=== PATIENT | male | born 1970 | race Caucasian/White ===

== ENCOUNTER 2016-02-24 20:58 | Emergency (ER) | payer OTHER ==
[2016-02-24] MEDS ORDERED: DUONEB (A & A) INH ONE (21:43)
[2016-02-24] MEDS ORDERED: DEPO-MEDROL IM ONE (21:43)
--- NOTE | 2016-02-24 21:51 | PROVIDER DOCUMENTATION ---
HPI-Respiratory General - General Chief Complaint: Shortness of Breath Stated Complaint: CHF Time Seen by Provider: 02/24/16 21:42 Source: patient Allergies/Adverse Reactions: Patient Allergies Allergy/AdvReac Type Severity Reaction Status Date / Time Penicillins Allergy Intermediate Unknown Verified 01/16/16 08:04 atropine Allergy ANAPHYLAXIS Verified 01/16/16 08:04 Latex, Natural Rubber Allergy RASH Verified 01/16/16 08:04 levofloxacin [From Levaquin] Allergy ITCHING Verified 01/16/16 08:04 Home Medications: Aspirin EC 1 each PO DAILY 09/08/15 - History of Present Illness-Resp Nature of Presenting Problem: 45 y/o M presents to the ED with SOB and cough today and it is worse. This is a chronic problem with him and states he does not have a nebulizer for treatments. Pt states he coughs so much it causes him to vomit. Quality of Pain: reports: aching Severity in ED: reports: moderate Onset/Duration: reports: gradual (worsen today) Timing: reports: still present, improving Cough Quality/Degree: reports: moderate, dry cough Current Respiratory Medication Therapy: Initiated none Associated Symptoms: reports: cough, nasal drainage. denies: facial pain, fever /chills, headache, sore throat Similar Symptoms Previously?: Yes Recently seen or treated by another doctor?: Yes Review of Systems - Adult - REVIEW OF SYSTEMS - ADULT Constitutional: denies: chills, fever Eyes: reports: no symptoms reported Ears, Nose, Mouth & Throat: reports: no symptoms reported Cardiovascular: denies: chest pain, edema Respiratory: reports: cough, shortness of breath. denies: wheezing Gastrointestinal: reports: vomiting. denies: abdominal pain, nausea Genitourinary: denies: discharge, frequency, hematuria Musculoskeletal: reports: bone pain, back pain. denies: muscle weakness Integumentary: reports: no symptoms reported Neurological: denies: dizziness/vertigo, headache/migraines Psychiatric: reports: no symptoms reported Endocrine: reports: no symptoms reported Hematologic/Lymphatic: reports: no symptoms reported Allergic/Immunologic: reports: no symptoms reported All Other Systems: Reviewed and Negative Past History - Adult - PAST MEDICAL HISTORY-ADULT Review of Records: reports: Old Records Reviewed, Nursing Assessment Review, Medications Reviewed Major Childhood Illnesses: reports: denies history Cardiovascular: reports: CHF, HTN, [place], other (cardiomyopathy/ 20% ejection fraction) Respiratory: reports: denies history Gastrointestinal: reports: denies history Genitourinary: reports: denies history Musculoskeletal: reports: chronic pain Neurological: reports: denies history Psychiatric: reports: anxiety, ptsd Endocrine/Immune: reports: denies history Other Conditions: reports: denies history - PRIOR SURGERIES/PROCEDURES Surgical/Procedure History: reports: cardiac stent, pacemaker - IMMUNIZATION STATUS Childhood Immunizations: See Nurse Assessment Flu Vaccine: See Nurse Assessment - FAMILY HISTORY Family History: reviewed, not pertinent - SOCIAL HISTORY Smoking: cigarettes, less than 1 pack/day Living Situation: family Physical Exam-General - PHYSICAL EXAM-ADULT Initial Vital Signs Reviewed: Yes - CONSTITUTIONAL General Appearance: appears well, no apparent distress, obese - EYES Eyes: PERRL/EOMI, pink conjunctivae - HEAD, EARS, NOSE, MOUTH & THROAT HENMT: moist mucous membranes, normal ENT inspection, TMs normal, pharynx normal - NECK Neck: non-tender, full range of motion, supple, normal inspection - RESPIRATORY Respiratory: no pleuratic chest pain, no respiratory distress, no accessory muscle use, wheezing, increased rate - CARDIOVASCULAR Cardiovascular: normal peripheral pulses, tachycardia - GASTROINTESTINAL (ABDOMEN) Abdominal Exam: normal bowel sounds, non tender, soft - MUSCULOSKELETAL Back Exam: normal inspection, no CVA tenderness, no vertebral tenderness Extremity: normal range of motion, non-tender, normal gait, normal inspection, no pedal edema - SKIN Integumentary: normal color, normal turgor, warm/dry - NEUROLOGIC Neurologic: grossly normal, no motor/sensory deficits - PSYCHIATRIC Psych/Mental Status: normal mood/affect, normal thought content, normal thought process, oriented x 3 Progress - PLAN OF CARE/RESULTS Progress/Plan/Lab Results: Orders Category Date Time Status Albuterol 2.5MG/Ipratrop 0.5MG [Duoneb (A & A)] Med 02/24/16 21:43 Discontinued 3 ml INH NOW ONE Methylprednisolone Acetate [Depo-Medrol] Med 02/24/16 21:43 Discontinued 80 mg IM NOW ONE Aerosol Treatments Routine Oth 02/24/16 21:44 Active Aerosol Treatments Stat Oth 02/24/16 21:44 Active Vital Signs Temp Pulse Resp BP Pulse Ox 02/24/16 21:01 99.2 F 101 H 22 171/107 99 Penicillins Allergy (Intermediate, Verified 01/16/16 08:04) Unknown atropine Allergy (Verified 01/16/16 08:04) ANAPHYLAXIS Latex, Natural Rubber Allergy (Verified 01/16/16 08:04) RASH levofloxacin [From Levaquin] Allergy (Verified 01/16/16 08:04) ITCHING Aspirin EC 1 each PO DAILY 09/08/15 Omeprazole [Prilosec] 40 mg PO DAILY #90 capsule. 10/05/15 ATORVAstatin [Lipitor] 40 mg PO QHS #30 tablet 01/26/16 Albuterol Sulfate Inhaler [Ventolin Hfa] 2 puff INH [id number] #1 inhaler 01/26/16 Alprazolam [Xanax] 2 mg PO TID #42 tablet 01/26/16 Amlodipine Besylate [Norvasc] 10 mg PO DAILY #30 tablet 01/26/16 Azithromycin 250 mg PO DAILY #4 tablet 01/26/16 Carvedilol [Coreg] 6.25 mg PO BID #60 tablet 01/26/16 Furosemide [Lasix] 40 mg PO BID #60 tablet 01/26/16 Hydrocodone/Acetaminophen [[place] 10-325 Tablet] 1 each PO TID #40 tablet Lisinopril 40 mg PO DAILY #30 tablet 01/26/16 Potassium Chloride E.r. [Klor-Con] 40 meq PO DAILY #30 tablet 01/26/16 Benzonatate [Tessalon Perle] 200 mg PO TID PRN #18 capsule 01/31/16 ATORVAstatin [Lipitor] 40 mg PO QHS #30 tablet 02/24/16 Albuterol Sulfate [Albuterol Sulfate Hfa] 18 gm IH 4XDAY #7 hfa.aer.ad 02/24/16 Amlodipine Besylate [Norvasc] 10 mg PO DAILY #30 tablet 02/24/16 Carvedilol [Coreg] 6.25 mg PO Q12HR #60 tablet 02/24/16 Clopidogrel Bisulfate [Plavix] 75 mg PO DAILY #30 tablet 02/24/16 Furosemide [Lasix] 40 mg PO BID #60 tablet 02/24/16 Losartan Potassium [Cozaar] 100 mg PO DAILY #30 tablet 02/24/16 Omeprazole [Prilosec] 40 mg PO DAILY #30 capsule. 02/24/16 Potassium Chloride [K-Tab ER] 40 meq PO BID #60 tablet.er 02/24/16 Departure - Departure Time of Disposition Order: 21:57 DIAGNOSIS: COPD exacerbation, Prescription refill CHF (congestive heart failure) Qualifiers: Congestive heart failure type: unspecified congestive heart failure type Congestive heart failure chronicity: unspecified congestive heart failure chronicity Qualified Code(s): I50.9 - Heart failure, unspecified Disposition: HOME 01 Certified Medical Emergency: Emergent Condition: Stable Additional Instructions: ED Follow Up Instructions: You have been treated by a care provider in the Emergency Department. These instructions are being provided to you so you can have an understanding of how to care for yourself upon discharge. Upon discharge from the Emergency Department, you are responsible for making arrangements for follow-up care by a physician of your choice. Take all prescribed medications as directed. Return to the Emergency Department immediately for any new or worsening symptoms. You may call the Physician Referral phone number at [phone] to obtain a list of Physicians who are taking new patients. Attestation - Scribe Verification/Attestation Scribe:: Sergio Dumont Acting as Scribe for:: Chucky Tovar Scribe documention review:: This chart was documented by a scribe and accurately reflects the service the provider performed and the decisions made by the provider.
[2016-02-24 22:41] VITALS: BP 158/94
== END 2016-02-24 22:39 | disposition home or self-care (01) ==
LOC: P.ED 20:58
DX: J44.1 Chronic obstructive pulmonary disease with (acute) exacerbation (principal); I50.9 Heart failure, unspecified; R06.02 Shortness of breath; R05 Cough; Z76.0 Encounter for issue of repeat prescription; R09.81 Nasal congestion; R00.0 Tachycardia, unspecified; R11.10 Vomiting, unspecified; R06.2 Wheezing; M54.9 Dorsalgia, unspecified; M89.8X9 Other specified disorders of bone, unspecified site; G89.29 Other chronic pain; I10 Essential (primary) hypertension; I25.2 Old myocardial infarction; I42.9 Cardiomyopathy, unspecified; F41.9 Anxiety disorder, unspecified; F43.10 Post-traumatic stress disorder, unspecified; Z95.5 Presence of coronary angioplasty implant and graft; Z95.0 Presence of cardiac pacemaker; F17.210 Nicotine dependence, cigarettes, uncomplicated; E66.9 Obesity, unspecified; Z68.36 Body mass index [BMI] 36.0-36.9, adult; Z79.82 Long term (current) use of aspirin; Z79.899 Other long term (current) drug therapy
CPT/HCPCS: 94640; 96372; J1040

== ENCOUNTER 2016-04-19 16:40 | Emergency (ER) ==
[2016-04-19] MEDS ORDERED: PERCOCET-10 PO ONE (17:25)
[2016-04-19] MEDS ORDERED: DUONEB (A & A) INH ONE (17:25)
[2016-04-19] MEDS ORDERED: SOLU-MEDROL IV ONE (17:25)
[2016-04-19] MEDS ORDERED: ASPIRIN PO STA (17:25)
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
[2016-04-19 17:32] LABS: MANUAL DIFF NEEDED? NO
[2016-04-19 17:38] LABS: BASO% 0.3 % (0.0-0.8); HEMATOCRIT 43.9 % (42.0-52.0); HEMOGLOBIN 13.8 g/dL (14.0-18.0); IMM GRAN# 0.01 X1000 (0.0-0.04); IMM GRAN% 0.1 % (0.0-0.5); LYMPH% 19.8 % (20.5-51.1); MCH 29.4 PG (27-31); MCHC 31.4 g/dL (33-37); MCV 93.6 FL (81-99); MONO# 0.86 X1000 (0.11-0.59); MPV 10.3 FL (7.4-10.4); NEUT% 69.8 % (42.2-75.2); PLT 205 X1000 (130-400); RBC 4.69 XMIL (4.7-6.1)
[2016-04-19 17:39] LABS: INR 1.01 (0.86-1.15); PROTIME 13.6 Seconds (12.1-15.5)
[2016-04-19 17:40] LABS: PTT PL 27.9 Seconds (22.6-43.9)
[2016-04-19 17:44] LABS: AGAP 11; ALBUMIN 3.8 g/dL (3.5-5.0); ALKALINE PHOSPHATASE 108 U/L (32-122); BUN 15 mg/dL (8-22); CALCIUM 9.1 mg/dL (8.8-10.2); CHLORIDE 101 mmol/L (98-107); CK PROFILE 175 U/L (24-204); COSMO 282; GOT 25 U/L (10-34); GPT 15 U/L (10-44); MAGNESIUM 2.3 mg/dL (1.5-2.7); POTASSIUM 3.5 mmol/L (3.5-5.1); SODIUM 140 mmol/L (136-145); TCO2 28 mmol/L (25-35)
[2016-04-19 17:59] LABS: BE 2.8 mmoll (-3.0-3.0); BLOOD TYPE ARTERIAL; DRAW SITE L RADIAL; METHB 1.1 % (0.0-1.5); O2(CT) 19.3 mL/dL (15.0-23.0); PCO2(98.6) 35 mmHg (35-45); PO2(98.6) 98 mmHg (60-100); SAMPLE BLOOD; SAO2 98.5 % (95.0-100.0); THB 14.5 g/dL (11.5-17.4); pH(98.6) 7.48 (7.35-7.45)
[2016-04-19 18:02] LABS: MODALITY ROOM AIR
[2016-04-19 18:03] LABS: ALLEN TEST YES
[2016-04-19 18:14] VITALS: BP 152/96
--- NOTE | 2016-04-19 18:27 | EKG Report ---
Test Performed on : 04/19/2016 6:00:07 PM Test Reason : CP Blood Pressure : / mmHG Vent. Rate : 107 BPM Atrial Rate : 107 BPM P-R Int : 166 ms QRS Dur : 098 ms QT Int : 372 ms P-R-T Axes : 066 -43 089 degrees QTc Int : 496 ms Sinus tachycardia. Biatrial enlargement Left axis deviation Left ventricular hypertrophy T wave abnormality, consider lateral ischemia Abnormal ECG When compared with ECG of 30-MAR-2016 19:32, premature ventricular complexes. are no longer present Unconfirmed Result
--- NOTE | 2016-04-20 09:52 | Diag Imaging Result Document ---
PROCEDURE NAME: CHEST-2 VIEWS - 04/19/2016 CHEST, TWO VIEWS: COMPARISON: 03/08/2016. INDICATION: Cough and shortness of breath. FINDINGS: There is stable marked cardiomegaly. There is a left pacemaker. Prominent bilateral interstitial markings are again identified and appear slightly more prominent than on the prior study of 03/08/2016 and approximately unchanged from 03/05/2016. No pneumothorax or effusion. IMPRESSION: Prominent interstitial markings which may indicated edema slightly increased from the prior study. No focal consolidation.
== END 2016-04-19 18:39 | disposition home or self-care (01) ==
LOC: P.ED 16:40
DX: J41.0 Simple chronic bronchitis (principal); R94.31 Abnormal electrocardiogram [ECG] [EKG]; R07.89 Other chest pain; M54.9 Dorsalgia, unspecified; R06.02 Shortness of breath; R05 Cough; M79.602 Pain in left arm; R00.0 Tachycardia, unspecified; L90.5 Scar conditions and fibrosis of skin; I50.9 Heart failure, unspecified; I10 Essential (primary) hypertension; I25.2 Old myocardial infarction; G89.29 Other chronic pain; F41.9 Anxiety disorder, unspecified; F17.210 Nicotine dependence, cigarettes, uncomplicated; Z79.02 Long term (current) use of antithrombotics/antiplatelets; Z79.82 Long term (current) use of aspirin; Z79.899 Other long term (current) drug therapy; Z71.6 Tobacco abuse counseling; Z95.0 Presence of cardiac pacemaker; Z95.5 Presence of coronary angioplasty implant and graft
CPT/HCPCS: 71020; 80053; 82550; 82805; 83735; 83880; 84484; 85025; 85379; 85610; 85730; 87040; 93005; 94640; 96374; J2930

== ENCOUNTER 2016-05-09 00:51 | Emergency (ER) ==
[2016-05-09 02:03] LABS: MANUAL DIFF NEEDED? NO
[2016-05-09] MEDS ORDERED: XOPENEX NEB INH ONE (02:03)
[2016-05-09] MEDS ORDERED: PULMICORT INH ONE (02:03)
[2016-05-09] MEDS ORDERED: PERCOCET-5 PO ONE (02:03)
[2016-05-09 02:08] LABS: BASO% 0.5 % (0.0-0.8); EOS# 0.25 X1000 (0.0-0.7); EOS% 2.6 % (0.0-10.0); HEMATOCRIT 41.3 % (42.0-52.0); HEMOGLOBIN 12.9 g/dL (14.0-18.0); IMM GRAN# 0.03 X1000 (0.0-0.04); IMM GRAN% 0.3 % (0.0-0.5); LYMPH# 2.42 X1000 (1.2-3.4); LYMPH% 24.8 % (20.5-51.1); MCH 29.5 PG (27-31); MCHC 31.2 g/dL (33-37); MCV 94.3 FL (81-99); MONO# 0.88 X1000 (0.11-0.59); MPV 9.8 FL (7.4-10.4); NEUT% 62.8 % (42.2-75.2); PLT 251 X1000 (130-400); RBC 4.38 XMIL (4.7-6.1)
--- NOTE | 2016-05-09 02:09 | PROVIDER DOCUMENTATION ---
HPI-Respiratory General - General Source: patient - History of Present Illness-Resp Onset/Duration: reports: 2 days ago Timing: reports: still present Cough Quality/Degree: reports: productive cough, sputum (YELLOWISH) Modifying Factors: improves with: nothing Associated Symptoms: reports: cough, short of breath Similar Symptoms Previously?: Yes Recently seen or treated by another doctor?: Yes <Han Taylor - Last Filed: 05/09/16 02:45> <Jose M Maxwell - Last Filed: 05/09/16 04:45> - General Chief Complaint: Shortness of Breath Stated Complaint: SOB Time Seen by Provider: 05/09/16 01:26 Allergies/Adverse Reactions: Patient Allergies Allergy/AdvReac Type Severity Reaction Status Date / Time Penicillins Allergy Intermediate Unknown Verified 03/30/16 19:29 atropine Allergy ANAPHYLAXIS Verified 03/30/16 19:29 Latex, Natural Rubber Allergy RASH Verified 03/30/16 19:29 levofloxacin [From Levaquin] Allergy ITCHING Verified 03/30/16 19:29 Home Medications: Home Medication List Medication Instructions Recorded Confirmed Last Taken Type Aspirin EC 1 each PO DAILY 09/08/15 05/09/16 03/07/16 History Alprazolam [Xanax] 2 mg PO TID #42 tablet 01/26/16 05/09/16 03/07/16 Rx Hydrocodone/Acetaminophen [[place] 1 each PO TID #40 tablet 01/26/16 05/09/16 Rx 10-325 Tablet] ATORVAstatin [Lipitor] 40 mg PO QHS #30 tablet 02/24/16 05/09/16 03/07/16 Rx Amlodipine Besylate [Norvasc] 10 mg PO DAILY #30 tablet 02/24/16 05/09/16 Rx Clopidogrel Bisulfate [Plavix] 75 mg PO DAILY #30 tablet 02/24/16 05/09/1603/07 Rx Losartan Potassium [Cozaar] 100 mg PO DAILY #30 tablet 02/24/16 05/09/16 Rx Omeprazole [Prilosec] 40 mg PO DAILY #30 capsule.dr 02/24/16 05/09/16 03/07/16 Rx Potassium Chloride [K-Tab ER] 40 meq PO BID #60 tablet.er 02/24/16 05/09/16 Rx Chlorthalidone [Hygroton] 25 mg PO DAILY #30 tablet 05/09/16 Unknown Rx Furosemide [Lasix] 160 mg PO BID 05/09/16 05/09/16 Unknown History - History of Present Illness-Resp Nature of Presenting Problem: 46 YOM PRESENTS TO ED WITH C/O PT STATES SOB X 2 DAYS. PT STATES COUGH X 3 DAYS. PT STATES HE IS ALMOST OUT OF HIS MEDS. PT STATES PRODUCTIVE COUGH WITH YELLOWISH SPUTUM 3 OR 4 DAYS. (Han Taylor) Review of Systems - Adult - REVIEW OF SYSTEMS - ADULT Constitutional: denies: chills, fever Eyes: reports: no symptoms reported Ears, Nose, Mouth & Throat: reports: no symptoms reported Cardiovascular: denies: chest pain, palpitations, syncope Respiratory: reports: cough, shortness of breath Gastrointestinal: denies: abdominal pain, diarrhea, nausea, vomiting Genitourinary: reports: no symptoms reported Musculoskeletal: denies: back pain, neck pain Integumentary: reports: no symptoms reported Neurological: denies: dizziness/vertigo, headache/migraines, syncope Psychiatric: reports: no symptoms reported Endocrine: reports: no symptoms reported Hematologic/Lymphatic: reports: no symptoms reported Allergic/Immunologic: reports: no symptoms reported All Other Systems: Reviewed and Negative <Han Taylor - Last Filed: 05/09/16 02:45> Past History - Adult - PAST MEDICAL HISTORY-ADULT Review of Records: reports: Nursing Assessment Review, Medications Reviewed Cardiovascular: reports: CHF, HTN, [place], other (cardiomyopathy/ 20% ejection fraction) Musculoskeletal: reports: chronic pain Psychiatric: reports: anxiety, ptsd - PRIOR SURGERIES/PROCEDURES Surgical/Procedure History: reports: cardiac stent, pacemaker - IMMUNIZATION STATUS Childhood Immunizations: See Nurse Assessment Flu Vaccine: See Nurse Assessment - FAMILY HISTORY Family History: reviewed, not pertinent - SOCIAL HISTORY Smoking: cigarettes, less than 1 pack/day Provider spent 3-5 mins advising pt. on dangers of tobacco.: Discussed manners to quit use, and f/u contacts for add'l counseling. Substance Use: alcohol Alcohol Use Frequency: occasionally Number of drinks per typical drinking period:: 3-4 drinks <Han Taylor - Last Filed: 05/09/16 02:45> Physical Exam-General - CONSTITUTIONAL General Appearance: alert, mild distress - EYES Eyes: PERRL/EOMI, pink conjunctivae - HEAD, EARS, NOSE, MOUTH & THROAT HENMT: normocephalic/atraumatic, moist mucous membranes - NECK Neck: non-tender, full range of motion, supple - RESPIRATORY Respiratory: chest non-tender, lungs clear, normal breath sounds - CARDIOVASCULAR Cardiovascular: normal peripheral pulses, tachycardia - GASTROINTESTINAL (ABDOMEN) Abdominal Exam: normal bowel sounds, non tender, soft - LYMPHATIC Lymphatic: no adenopathy - MUSCULOSKELETAL Back Exam: normal inspection, no CVA tenderness, no vertebral tenderness Extremity: normal range of motion, non-tender - SKIN Integumentary: normal color, normal turgor, warm/dry - NEUROLOGIC Neurologic: grossly normal - PSYCHIATRIC Psych/Mental Status: oriented x 3 <Han Taylor - Last Filed: 05/09/16 02:45> Progress - EKG 1 Time of EKG reading by physician:: 02:22 EKG Read and Signed by:: Jose M Maxwell EKG Interpretation (*Must complete 3 of following elements*): Abnormal Rate: 101 Rhythm: SINUS TACHYCARDIA [place]: left ST Wave: non-specific ST changes <Han Taylor - Last Filed: 05/09/16 02:45> - REASSESSMENT Reassessment #1 Time Reassessed: 04:00 Status: improving (lungs improved. continuously demanding narcotics, refusing toradol. He will be discharged with referral to [facility] and on-call Certified [place] [facility]) <Jose M Maxwell - Last Filed: 05/09/16 04:45> Departure <Han Taylor - Last Filed: 05/09/16 02:45> - Departure Time of Disposition Order: 05:00 Certified Medical Emergency: Urgent <Jose M Maxwell - Last Filed: 05/09/16 04:45> - Departure DIAGNOSIS: CHF (congestive heart failure), NYHA class III Qualifiers: Congestive heart failure type: combined Congestive heart failure chronicity: chronic Qualified Code(s): I50.42 - Chronic combined systolic (congestive) and diastolic (congestive) heart failure Disposition: HOME 01 Condition: Fair Additional Instructions: Call [facility] for pain treatment Call Certified [place] [facility] for treatment of heart problems Prescriptions: Chlorthalidone [Hygroton] 25 mg PO DAILY #30 tablet Referrals: Moisés Wang MD [STAFF PHYSICIAN] - Attestation - Scribe Verification/Attestation Scribe:: Han Taylor Acting as Scribe for:: Jose M Maxwell Scribe documention review:: This chart was documented by a scribe and accurately reflects the service the provider performed and the decisions made by the provider. <Han Taylor - Last Filed: 05/09/16 02:45> Physician Attestation
--- NOTE | 2016-05-09 02:38 | EKG Report ---
Test Performed on : 05/09/2016 02:21:45 AM Test Reason : pain Blood Pressure : / mmHG Vent. Rate : 101 BPM Atrial Rate : 101 BPM P-R Int : 178 ms QRS Dur : 096 ms QT Int : 388 ms P-R-T Axes : 061 -44 092 degrees QTc Int : 503 ms Sinus tachycardia. Biatrial enlargement Left axis deviation Left ventricular hypertrophy Nonspecific T wave abnormality Abnormal ECG When compared with ECG of 19-APR-2016 18:00, No significant change was found Unconfirmed Result
[2016-05-09 03:14] LABS: CK INDEX 1.8 (0.0-2.5); CK-MB 5.71 ng/mL (0.0-5.0)
[2016-05-09 03:17] LABS: AGAP 16; ALBUMIN 3.5 g/dL (3.5-5.0); ALKALINE PHOSPHATASE 95 U/L (32-122); BUN 14 mg/dL (8-22); CALCIUM 8.2 mg/dL (8.8-10.2); CHLORIDE 98 mmol/L (98-107); COSMO 282; GOT 28 U/L (10-34); GPT 15 U/L (10-44); POTASSIUM 3.5 mmol/L (3.5-5.1); SODIUM 139 mmol/L (136-145); TCO2 25 mmol/L (25-35); TOTAL PROTEIN 5.8 g/dL (6.3-8.3)
[2016-05-09] MEDS ORDERED: LASIX IV ONE (04:01)
[2016-05-09] MEDS ORDERED: TORADOL ONE (04:23)
[2016-05-09] MEDS ORDERED: TORADOL IV ONE (04:29)
[2016-05-09] MEDS ORDERED: ROBITUSSIN-AC PO ONE (05:23)
[2016-05-09 05:40] VITALS: BP 146/100
--- NOTE | 2016-05-09 07:40 | Diag Imaging Result Document ---
PROCEDURE NAME: CHEST-2 VIEWS - 05/09/2016 TWO VIEWS OF THE CHEST: FINDINGS: There is cardiomegaly and interstitial opacity consistent with pulmonary edema. This is slightly worse than on 04/19/2016. IMPRESSION: Mild pulmonary edema and cardiomegaly.
== END 2016-05-09 05:54 | disposition home or self-care (01) ==
LOC: P.ED 00:51
DX: I50.42 Chronic combined systolic (congestive) and diastolic (congestive) heart failure (principal); R06.02 Shortness of breath; R00.0 Tachycardia, unspecified; R94.31 Abnormal electrocardiogram [ECG] [EKG]; R05 Cough; I10 Essential (primary) hypertension; I25.2 Old myocardial infarction; I42.9 Cardiomyopathy, unspecified; G89.29 Other chronic pain; F41.9 Anxiety disorder, unspecified; F43.10 Post-traumatic stress disorder, unspecified; Z95.5 Presence of coronary angioplasty implant and graft; Z95.0 Presence of cardiac pacemaker; F17.210 Nicotine dependence, cigarettes, uncomplicated; Z71.6 Tobacco abuse counseling; Z79.899 Other long term (current) drug therapy; Z79.02 Long term (current) use of antithrombotics/antiplatelets; Z79.82 Long term (current) use of aspirin; Z76.0 Encounter for issue of repeat prescription; F32.9 Major depressive disorder, single episode, unspecified; J35.1 Hypertrophy of tonsils; Z79.51 Long term (current) use of inhaled steroids
CPT/HCPCS: 71020; 80053; 82550; 82553; 83880; 84484; 85025; 93005; 94640; 94761; 96374; J1100; J1885; J1940

== ENCOUNTER 2016-05-09 18:10 | Emergency (ER) ==
[2016-05-09 18:18] VITALS: BP 146/110
--- NOTE | 2016-05-09 18:32 | PROVIDER DOCUMENTATION ---
HPI-Respiratory General - General Source: patient - History of Present Illness-Resp Quality of Pain: reports: aching Severity in ED: reports: mild Onset/Duration: reports: 6 days ago Timing: reports: still present Exposure: reports: common food allergen exposure Cough Quality/Degree: reports: moderate Current Respiratory Medication Therapy: Initiated see nurses note Associated Symptoms: reports: cough Similar Symptoms Previously?: Yes Recently seen or treated by another doctor?: Yes <Anjelica Lira - Last Filed: 05/09/16 18:33> <Angela Griffin - Last Filed: 05/09/16 18:42> - General Chief Complaint: Cough Stated Complaint: SOB Time Seen by Provider: 05/09/16 18:27 Allergies/Adverse Reactions: Patient Allergies Allergy/AdvReac Type Severity Reaction Status Date / Time Penicillins Allergy Intermediate Unknown Verified 05/09/16 18:18 atropine Allergy ANAPHYLAXIS Verified 05/09/16 18:18 Latex, Natural Rubber Allergy RASH Verified 05/09/16 18:18 levofloxacin [From Levaquin] Allergy ITCHING Verified 05/09/16 18:18 Home Medications: Home Medication List Medication Instructions Recorded Confirmed Last Taken Type Aspirin EC 1 each PO DAILY 09/08/15 05/09/16 03/07/16 History Alprazolam [Xanax] 2 mg PO TID #42 tablet 01/26/16 05/09/16 03/07/16 Rx Hydrocodone/Acetaminophen [[place] 1 each PO TID #40 tablet 01/26/16 05/09/16 Rx 10-325 Tablet] ATORVAstatin [Lipitor] 40 mg PO QHS #30 tablet 02/24/16 05/09/16 03/07/16 Rx Amlodipine Besylate [Norvasc] 10 mg PO DAILY #30 tablet 02/24/16 05/09/16 Rx Clopidogrel Bisulfate [Plavix] 75 mg PO DAILY #30 tablet 02/24/16 05/09/1603/07 Rx Losartan Potassium [Cozaar] 100 mg PO DAILY #30 tablet 02/24/16 05/09/16 Rx Omeprazole [Prilosec] 40 mg PO DAILY #30 capsule. 02/24/16 05/09/16 03/07/16 Rx Potassium Chloride [K-Tab ER] 40 meq PO BID #60 tablet.er 02/24/16 05/09/16 Rx Albuterol Sulfate [Proair Hfa] 8.5 gm IH Q4H PRN PRN #1 hfa.aer.ad 05/09/16 Unknown Rx Azithromycin [Zithromax Z-Lefty] 250 mg PO DIRECTED #1 pkg 05/09/16 Unknown Rx Chlorthalidone [Hygroton] 25 mg PO DAILY #30 tablet 05/09/16 05/09/16 Unknown Rx Furosemide [Lasix] 80 mg PO BID #60 tablet 05/09/16 Unknown Rx Furosemide [Lasix] 160 mg PO BID 05/09/16 05/09/16 Unknown History Guaifenesin/Codeine [Robitussin-AC] 5 ml PO Q4H PRN PRN #6 oz 05/09/16 05/09/16 Unknown Rx Mometasone/Formoterol [Dulera 200 2 puff INH RTBID #1 inhaler 05/09/16 05/09/16 Unknown Rx Mcg/5 Mcg Inhaler] Phenylephrine HCl/Cod/Prometh 5 ml PO Q6-8H PRN PRN #1 syrup 05/09/16 Unknown Rx [Phenergan Vc-Codeine Syrup] Promethazine [Phenergan] 1 - 2 tab PO Q6H PRN PRN #18 tablet 05/09/16 05/09/16 Unknown Rx - History of Present Illness-Resp Nature of Presenting Problem: 46 year old M presents to the ED with a cc of 6 days straight. PT states that he has been hurting in his head, roof of mouth, ABD, and rectum since coughing. PT states that he was seen here last night for the same. Pt also requesting a pain RX, pain pill, Lasix, ProAir inhaler, and Phenergan with Codine. (Anjelica Lira) Review of Systems - Adult - REVIEW OF SYSTEMS - ADULT Constitutional: denies: chills, fever Eyes: reports: no symptoms reported Ears, Nose, Mouth & Throat: reports: no symptoms reported Cardiovascular: denies: chest pain, palpitations Respiratory: reports: cough. denies: shortness of breath Gastrointestinal: denies: nausea, vomiting Genitourinary: reports: no symptoms reported Musculoskeletal: reports: no symptoms reported Integumentary: reports: no symptoms reported Neurological: reports: no symptoms reported Psychiatric: reports: no symptoms reported Endocrine: reports: no symptoms reported Hematologic/Lymphatic: reports: no symptoms reported Allergic/Immunologic: reports: no symptoms reported All Other Systems: Reviewed and Negative <Anjelica Lira - Last Filed: 05/09/16 18:33> Past History - Adult - PAST MEDICAL HISTORY-ADULT Review of Records: reports: Nursing Assessment Review, Medications Reviewed Major Childhood Illnesses: reports: denies history Cardiovascular: reports: CHF, HTN, [place], other (cardiomyopathy/ 20% ejection fraction) Respiratory: reports: denies history Gastrointestinal: reports: denies history Obstetrical/Gynecological: reports: denies history Genitourinary: reports: denies history Musculoskeletal: reports: chronic pain Neurological: reports: denies history Psychiatric: reports: anxiety, ptsd Endocrine/Immune: reports: denies history Other Conditions: reports: denies history - PRIOR SURGERIES/PROCEDURES Surgical/Procedure History: reports: cardiac stent, pacemaker - IMMUNIZATION STATUS Childhood Immunizations: See Nurse Assessment Flu Vaccine: See Nurse Assessment - FAMILY HISTORY Family History: reviewed, not pertinent - SOCIAL HISTORY Smoking: cigarettes, less than 1 pack/day Provider spent 3-5 mins advising pt. on dangers of tobacco.: Discussed manners to quit use, and f/u contacts for add'l counseling. Substance Use: none/never Alcohol Use Frequency: occasionally <Anjelica Lira - Last Filed: 05/09/16 18:33> Physical Exam-General - PHYSICAL EXAM-ADULT Initial Vital Signs Reviewed: Yes - CONSTITUTIONAL General Appearance: appears well, alert, no apparent distress - HEAD, EARS, NOSE, MOUTH & THROAT HENMT: normocephalic/atraumatic, moist mucous membranes, TMs normal, other ( tonsillar swelling) - RESPIRATORY Respiratory: chest non-tender, lungs clear, normal breath sounds - CARDIOVASCULAR Cardiovascular: normal peripheral pulses, regular rate, rhythm, no edema - GASTROINTESTINAL (ABDOMEN) Abdominal Exam: non tender, soft - SKIN Integumentary: normal color, normal turgor, warm/dry - PSYCHIATRIC Psych/Mental Status: normal mood/affect, normal thought content, normal thought process, oriented x 3 <Anjelica Lira - Last Filed: 05/09/16 18:33> Departure <Anjelica Lira - Last Filed: 05/09/16 18:33> - Departure Time of Disposition Order: 18:42 Certified Medical Emergency: Emergent <Angela Griffin - Last Filed: 05/09/16 18:42> - Departure DIAGNOSIS: Prescription refill, Cough Disposition: HOME 01 Condition: Stable Additional Instructions: Please follow up with a primary care physician ED Follow Up Instructions: You have been treated by a care provider in the Emergency Department. These instructions are being provided to you so you can have an understanding of how to care for yourself upon discharge. Upon discharge from the Emergency Department, you are responsible for making arrangements for follow-up care by a physician of your choice. Take all prescribed medications as directed. Return to the Emergency Department immediately for any new or worsening symptoms. You may call the Physician Referral phone number at [phone] to obtain a list of Physicians who are taking new patients. Prescriptions: Furosemide [Lasix] 80 mg PO BID #60 tablet Phenylephrine HCl/Cod/Prometh [Phenergan Vc-Codeine Syrup] 5 ml PO Q6-8H PRN PRN #1 syrup PRN Reason: cough Albuterol Sulfate [Proair Hfa] 8.5 gm IH Q4H PRN PRN #1 hfa.aer.ad PRN Reason: Wheezing Azithromycin [Zithromax Z-Lefty] 250 mg PO DIRECTED #1 pkg Referrals: None,PCP [Primary Care Provider] - Cam Hodge MD [STAFF PHYSICIAN] - Forms: Return to School/Parent Work Instructions: Furosemide tablets, Phenylephrine oral tablet, Albuterol inhalation aerosol Attestation - Scribe Verification/Attestation Scribe:: Anjelica Lira Acting as Scribe for:: Angela Griffin Scribe documention review:: This chart was documented by a scribe and accurately reflects the service the provider performed and the decisions made by the provider. <Anjelica Lira - Last Filed: 05/09/16 18:33> Physician Attestation - Physician Attestation I, the provider, attest to the following statement:: Angela Griffin Physician documentation Attestation:: This documentation recorded by the scribe accurately reflects the service I personally performed and the decisions made by me. <Anjelica Lira - Last Filed: 05/09/16 18:33>
[2016-05-09] MEDS ORDERED: NORCO-5 PO ONE (18:33)
[2016-05-09] MEDS ORDERED: DUONEB (A & A) INH ONE (18:33)
[2016-05-09] MEDS ORDERED: DECADRON IM ONE (18:52)
== END 2016-05-09 19:15 | disposition home or self-care (01) ==
LOC: P.ED 18:10
DX: R05 Cough (principal); Z76.0 Encounter for issue of repeat prescription; I50.9 Heart failure, unspecified; I10 Essential (primary) hypertension; I25.2 Old myocardial infarction; I42.9 Cardiomyopathy, unspecified; G89.29 Other chronic pain; F41.9 Anxiety disorder, unspecified; F32.9 Major depressive disorder, single episode, unspecified; Z95.5 Presence of coronary angioplasty implant and graft; Z95.0 Presence of cardiac pacemaker; F17.210 Nicotine dependence, cigarettes, uncomplicated; Z71.6 Tobacco abuse counseling; J35.1 Hypertrophy of tonsils; Z79.899 Other long term (current) drug therapy; Z79.51 Long term (current) use of inhaled steroids; Z79.02 Long term (current) use of antithrombotics/antiplatelets; Z79.82 Long term (current) use of aspirin
CPT/HCPCS: 94640; J1100

== ENCOUNTER 2016-05-28 20:21 | Inpatient (IN) ==
[2016-05-28] MEDS ORDERED: ASPIRIN PO STA (20:43)
[2016-05-28] MEDS ORDERED: DILAUDID IV ONE ×2 (20:54→23:53)
[2016-05-28] MEDS ORDERED: NITROGLYCERIN TOP ONE ×2 (20:54→23:53)
[2016-05-28] MEDS ORDERED: ZOFRAN IV ONE (20:54)
--- NOTE | 2016-05-28 21:28 | EKG Report ---
Test Performed on : 05/28/2016 8:41:16 PM Test Reason : CHEST PAIN Blood Pressure : / mmHG Vent. Rate : 110 BPM Atrial Rate : 110 BPM P-R Int : 164 ms QRS Dur : 096 ms QT Int : 352 ms P-R-T Axes : 058 -46 087 degrees QTc Int : 476 ms Sinus tachycardia. Biatrial enlargement Left axis deviation Left ventricular hypertrophy Abnormal ECG When compared with ECG of 24-MAY-2016 12:50, No significant change was found Unconfirmed Result
[2016-05-28 21:42] LABS: MANUAL DIFF NEEDED? NO
[2016-05-28 21:55] LABS: BASO% 0.4 % (0.0-0.8); EOS# 0.15 X1000 (0.0-0.7); EOS% 1.3 % (0.0-10.0); HEMATOCRIT 43.3 % (42.0-52.0); HEMOGLOBIN 13.5 g/dL (14.0-18.0); IMM GRAN# 0.01 X1000 (0.0-0.04); IMM GRAN% 0.1 % (0.0-0.5); LYMPH% 15.8 % (20.5-51.1); MCH 28.9 PG (27-31); MCHC 31.2 g/dL (33-37); MCV 92.7 FL (81-99); MONO# 0.85 X1000 (0.11-0.59); MONO% 7.5 % (1.7-9.3); MPV 9.6 FL (7.4-10.4); NEUT% 74.9 % (42.2-75.2); PLT 247 X1000 (130-400); RBC 4.67 XMIL (4.7-6.1)
[2016-05-28 22:00] LABS: INR 1.1 (0.86-1.15); PROTIME 14.5 Seconds (12.1-15.5)
[2016-05-28 22:01] LABS: PTT PL 30.1 Seconds (22.6-43.9)
[2016-05-28 22:11] LABS: UR AMPHETAMINES QUAL NONE DETECTED (NONE DETECT); UR BARBITUATES QUAL NONE DETECTED (NONE DETECT); UR BENZODIAZEPIN QUAL NONE DETECTED (NONE DETECT); UR CANNABINOIDS QUAL NONE DETECTED (NONE DETECT); UR COCAINE QUAL NONE DETECTED (NONE DETECT); UR MDMA QUAL NONE DETECTED (NONE DETECT); UR METHADONE QUAL NONE DETECTED (NONE DETECT); UR METHAMPHETAMINE QUAL NONE DETECTED (NONE DETECT); UR OPIATES QUAL NONE DETECTED (NONE DETECT); UR OXYCODONE QUAL NONE DETECTED (NONE DETECT); UR PCP QUAL NONE DETECTED (NONE DETECT); UR TCA QUAL NONE DETECTED (NONE DETECT)
[2016-05-28 22:25] LABS: AGAP 12; ALBUMIN 3.6 g/dL (3.5-5.0); ALKALINE PHOSPHATASE 109 U/L (32-122); AMYLASE 50 U/L (20-200); BUN 14 mg/dL (8-22); CALCIUM 8.5 mg/dL (8.8-10.2); CHLORIDE 98 mmol/L (98-107); COSMO 275; GOT 29 U/L (10-34); GPT 41 U/L (10-44); POTASSIUM 3.8 mmol/L (3.5-5.1); SODIUM 136 mmol/L (136-145); TCO2 26 mmol/L (25-35)
[2016-05-28 22:27] LABS: CK PROFILE 211 U/L (24-204)
[2016-05-28 22:50] LABS: CK INDEX 2.5 (0.0-2.5); CK-MB 5.38 ng/mL (0.0-5.0)
[2016-05-28] MEDS ORDERED: LASIX IV ONE (23:52)
[2016-05-28] MEDS ORDERED: TYLENOL PO PRN (23:54)
[2016-05-28] MEDS ORDERED: ZOFRAN IV PRN (23:54)
[2016-05-29] MEDS ORDERED: CATAPRES PO ONE (00:46)
[2016-05-29] MEDS ORDERED: CATAPRES ONE (00:47)
[2016-05-29] MEDS ORDERED: LASIX ONE (01:57)
[2016-05-29] MEDS ORDERED: DILAUDID ONE (01:57)
[2016-05-29] MEDS: DILAUDID IM PRN ×2 (02:00→08:56)
[2016-05-29 08:53] VITALS: BP 142/87
--- NOTE | 2016-05-29 09:20 | Diag Imaging Result Document ---
PROCEDURE NAME: ANGIOGRAM/PULMONARY ARTERIES - 05/28/2016 CT PULMONARY ANGIOGRAM WITH INTRAVENOUS CONTRAST, 05/28/2016: A CT dose reduction protocol was used. COMPARISON: None. TECHNIQUE: Axial CT images of the chest were obtained after administering intravenous contrast. Coronal MIP images were generated. The IV leaked during the injections so the contrast bolus is suboptimal. FINDINGS: No large pulmonary embolism. There is cardiomegaly. There is a dual -chamber pacemaker. There is ill-defined ground-glass opacity throughout the lungs suggesting some mild interstitial pulmonary edema. No mass or adenopathy. Upper abdominal images are unremarkable. Bony structures are intact. IMPRESSION: 1. No obvious pulmonary embolism. 2. Cardiomegaly and mild hazy ground-glass opacity suggesting interstitial pulmonary edema. [facility]
[2016-05-29] MEDS ORDERED: VENTOLIN HFA INH PRN (11:02)
[2016-05-29] MEDS ORDERED: DILAUDID IM PRN (11:08)
[2016-05-29] MEDS ORDERED: KLOR-CON PO SCH (11:15)
[2016-05-29] MEDS ORDERED: COZAAR PO SCH (11:15)
--- NOTE | 2016-05-29 11:39 | Diag Imaging Result Document ---
PROCEDURE NAME: CHEST-2 VIEWS - 05/28/2016 CHEST, 2 VIEWS: COMPARISON: 05/24/2016. FINDINGS: Stable pacemaker. Stable severe cardiomegaly. There is ill-defined interstitial pattern diffusely and bilaterally suggesting mild pulmonary edema. No pneumothorax or pleural effusion. IMPRESSION: Cardiomegaly and probable mild interstitial pulmonary edema.
--- NOTE | 2016-05-29 14:27 | HISTORY AND PHYSICAL ---
CHIEF COMPLAINT: Chest pain. Swelling in his feet. HISTORY OF PRESENT ILLNESS: The patient unfortunately is a relatively noncompliant 46-year-old male as noted below. He has a known history of significant coronary artery disease and apparently has been on heart transplant list in the past with an EF of 20%. He presents to the emergency department initially noting that his feet were swelling and he is having issues with chest pain. However this morning notes his chest pain has resolved but still is having significant swelling in his feet. PAST MEDICAL HISTORY: Known coronary artery disease, hypertension, hyperlipidemia, COPD, systolic congestive heart failure with an ejection fraction of 20%. He has an ICD placement. FAMILY HISTORY: Noncontributory. SOCIAL HISTORY: Patient currently lives at home with his family. Continues to smoke a half pack cigarettes a day. Continues to drink alcohol occasionally. ALLERGIES: Penicillin, atropine, natural latex, rubber and Levaquin. HOME MEDICATIONS: Albuterol, Xanax patient notes he takes 2 mg 3 times a day, Lipitor 40, Norvasc 10, Cozaar, Prilosec, potassium, Lasix, Plavix 75, aspirin 325. PHYSICAL: Vital signs: Temperature 98, pulse 89, respiratory 16, BP 139/92 to 142/87, saturations 97% on room air. General: Patient is awake, alert, oriented. He is in no current respiratory distress. He is currently pleasant to talk with although this was apparently not the case last night. HEENT: Normocephalic, atraumatic. AYSE. Neck: Supple. CV: Regular rate. Chest: Relatively clear. No crackles. No wheezing. Abdomen: Soft. Extremities: 2+ edema bilateral lower extremities. Neurologic: No focal changes. DIAGNOSTIC DATA: WBCs 11, hemoglobin and hematocrit 13 and 43. D-dimer 0.59. BNP 2552. ASSESSMENT: 1. Chest pain. 2. Systolic congestive heart failure. 3. Hypertension. 4. Pulmonary edema. 5. Bilateral lower extremity edema. 6. Hypertension. 7. Unfortunate chronic medical noncompliance as noted by continued smoking, continued occasional alcohol use, continued failure to follow up with cardiology. He has been in town at least over 6 months and has still not made an appointment with [facility]. He does not have a primary care physician either. 8. Chronic pain. 9. Chronic anxiety. PLAN: Will admit patient to the hospital for observation, rule out MO. Further orders as needed. cc: Adalberto Ng MD
[2016-05-29] MEDS ORDERED: ASPIRIN EC PO SCH (21:00)
[2016-05-29] MEDS ORDERED: PLAVIX PO SCH (21:00)
[2016-05-29] MEDS ORDERED: LASIX PO SCH (21:00)
--- NOTE | 2016-05-29 21:37 | DISCHARGE SUMMARY ---
ADMISSION DATE: 05/29/2016 DISCHARGE DATE: 05/29/2016 DISCHARGE DIAGNOSES: 1. Chest pain resolved. 2. Congestive heart failure, systolic, stable with an ejection fraction of 20%. 3. Hypertension. 4. Chronic anxiety. 5. Chronic pain. 6. Chronic obstructive pulmonary disease. 7. Chronic continued tobacco abuse. BRIEF HOSPITAL COURSE: No changes were made in patient's hospital stay. He was restarted on some medications. DISPOSITION: The patient will be discharged home. He will follow up with Cardiology hopefully this time. He failed to do so last time. He will also follow up with his primary care physician. Certainly feel as though patient may be in the hospital simply to get his chronic home medications of Xanax and Orestes. As noted, in January he had a stress test at that point which was noted to have 2 separate defects that were fixed and an EF of 28%. An echocardiogram showed 20%. Will also add Zaroxolyn to see if this will help. cc: Adalberto Ng MD
[2016-05-30] MEDS ORDERED: PRILOSEC PO SCH (07:00)
--- NOTE | 2016-06-02 18:48 | PROVIDER DOCUMENTATION ---
This chart was entered by Nancy Altman Scribe, acting as scribe for Saud Chao DO. HPI-Musculoskeletal Pain/Inj - GENERAL Chief Complaint: Chest Pain Stated Complaint: CHEST PAIN,SOB Time Seen by Provider: 05/28/16 20:43 Source: patient - HX OF PRESENT ILLNESS-MUSKULOSKELTAL Nature of Presenting Problem: 46 YO M presents to the ER with the complain of Chest pain and edema X1 day. Pt states that the swelling of legs started yesterday and is on blood thinners. Denies any other symptoms. Severity in ED: mild Onset/Duration: 24 hours ago Timing: still present - FALL INJURY Location of Pain/Injury: reports: lower extremity Pain Radiation: reports: chest Review of Systems - Adult - REVIEW OF SYSTEMS - ADULT Constitutional: denies: chills, fever Eyes: reports: no symptoms reported Ears, Nose, Mouth & Throat: reports: no symptoms reported Cardiovascular: reports: chest pain. denies: palpitations Respiratory: reports: shortness of breath. denies: cough Gastrointestinal: denies: abdominal pain, nausea Genitourinary: reports: no symptoms reported Musculoskeletal: reports: other (edema in both legs). denies: joint swelling Integumentary: reports: no symptoms reported Neurological: reports: no symptoms reported Psychiatric: reports: no symptoms reported Endocrine: reports: no symptoms reported Hematologic/Lymphatic: reports: no symptoms reported Allergic/Immunologic: reports: no symptoms reported All Other Systems: Reviewed and Negative Past History - Adult - PAST MEDICAL HISTORY-ADULT Review of Records: reports: Old Records Reviewed, Nursing Assessment Review Major Childhood Illnesses: reports: denies history Cardiovascular: reports: CHF, HTN, [place], other (cardiomyopathy/ 20% ejection fraction) Respiratory: reports: denies history Gastrointestinal: reports: denies history Obstetrical/Gynecological: reports: denies history Genitourinary: reports: denies history Musculoskeletal: reports: chronic pain Neurological: reports: denies history Psychiatric: reports: anxiety, ptsd Endocrine/Immune: reports: denies history Other Conditions: reports: denies history - PRIOR SURGERIES/PROCEDURES Surgical/Procedure History: reports: cardiac stent, pacemaker - IMMUNIZATION STATUS Childhood Immunizations: See Nurse Assessment Flu Vaccine: See Nurse Assessment - FAMILY HISTORY Family History: reviewed, not pertinent - SOCIAL HISTORY Smoking: cigarettes Provider spent 3-5 mins advising pt. on dangers of tobacco.: Discussed manners to quit use, and f/u contacts for add'l counseling. Alcohol Use Frequency: occasionally Physical Exam-Injury Related - Physical Exam-Injury Related Initial Vital Signs Reviewed: Yes General Appearance: appears well, alert, mild distress Eyes: PERRL/EOMI, pink conjunctivae Head, Ears, Nose, Mouth & Throat: moist mucous membranes, normal ENT inspection Neck: non-tender, full range of motion, supple Respiratory: normal breath sounds, no respiratory distress Cardiovascular: normal peripheral pulses, regular rate, rhythm Back Exam: no CVA tenderness, no vertebral tenderness Extremity: pedal edema, swelling (bilat legs) Integumentary: normal color, warm/dry Neurologic: grossly normal, no motor/sensory deficits Psych/Mental Status: normal mood/affect, normal thought content, normal thought process, oriented x 3 Progress - PLAN OF CARE/RESULTS Progress/Plan/Lab Results: Orders Category Date Time Status Admit - [facility] Routine AdmDCTranf 05/28/16 23:54 Ordered Activity - Strict Bedrest ORDERED Care 05/28/16 23:54 Active Call Admitting on Arrival AT ADMISSION Care 05/28/16 23:54 Completed Cardiac Monitoring DIRECTED Care 05/28/16 20:44 Active Saline Loc DIRECTED Care 05/28/16 23:54 Completed Saline Loc NOW Care 05/28/16 20:44 Completed Vital Signs Order ARRIVAL TO ROOM Care 05/28/16 23:54 Active Heart Healthy Diet Diet 05/28/16 23:55 Completed CHEST-2 VIEWS [RAD] Stat Exams 05/28/16 20:44 Completed CTA [ANGIOGRAM/PULMONARY ARTERIES] [CT] Stat Exams 05/28/16 22:23 Completed ALCOHOL BLOOD Stat Lab 05/28/16 21:25 Completed AMYLASE [CHEM] Stat Lab 05/28/16 21:25 Completed CBC WITH ELECTRONIC DIFF [HEME] Stat Lab 05/28/16 21:25 Completed CK PROFILE [SP CHEM] Stat Lab 05/28/16 21:25 Completed COMPREHENSIVE METABOLIC PANEL [CHEM] Stat Lab 05/28/16 21:[address] D-D[address]ER [address] [COAG] Stat Lab 05/28/16 21:25 Completed MAGNESIUM [CHEM] Stat Lab 05/28/16 21:25 Completed PRO B-NATRIURETIC PEPTIDE Stat Lab 05/28/16 21:25 Completed [address]IME WITH INR PL [COAG] Stat Lab 05/28/16 21:[address] [COAG] Stat Lab 05/28/16 21:25 Completed TROPONIN T Lab 05/29/16 05:15 Completed TROPONIN T Stat Lab 05/28/16 21:25 Completed URINE DRUG SCREEN PL Stat Lab 05/28/16 21:50 Completed Acetaminophen [Tylenol] Med 05/28/16 23:54 Discontinued 650 mg PO Q6H PRN PRN Aspirin Med 05/28/16 20:43 Discontinued 325 mg PO STAT STA Furosemide [Lasix] Med 05/28/16 23:52 Discontinued 40 mg IV NOW ONE Hydromorphone [Dilaudid] Med 05/28/16 23:53 Discontinued 0.5 mg IV NOW ONE Hydromorphone [Dilaudid] Med 05/28/16 23:54 Discontinued 1 mg IM Q4H PRN PRN Hydromorphone [Dilaudid] Med 05/28/16 20:54 Discontinued 1 mg IV NOW ONE Nitroglycerin Med 05/28/16 20:54 Discontinued 1 inch TOP NOW ONE Nitroglycerin Med 05/28/16 23:53 Discontinued 1 inch TOP NOW ONE Ondansetron [Zofran] Med 05/28/16 20:54 Discontinued 4 mg IV NOW ONE Ondansetron [Zofran] Med 05/28/16 23:54 Discontinued 4 mg IV Q4H PRN PRN Oxygen Device Routine Oth 05/28/16 23:54 Active Telemetry [OM.EQ] Routine Oth 05/28/16 23:54 Active EKG [EKG] Stat Ther 05/28/16 20:44 Draft Transfer/Admit Order [TRANSFER] Routine Transfer 05/28/16 23:55 Completed Result Diagrams: 05/28/16 21:25 05/28/16 21:25 - CT/MRI 1 CT Study: other (Angio Chest) Impression: Normal CT Results: Linited study. No defenite PE is identified. other finding as above. - CONSULTS/PCP/HOSPITALIST Notification #1 *Consult/PCP/Hospitalist*: Dr. Ng Time Discussed: 23:48 Reason/Comments: Meme martinez patient Departure - Departure Time of Disposition Decision: 23:52 DIAGNOSIS: Chest pain Qualifiers: Chest pain type: unspecified Qualified Code(s): R07.9 - Chest pain, unspecified Disposition: ADMITTED INPATIENT 09 Certified Medical Emergency: Emergent Condition: Stable This chart was documented by the indicated scribe, (Nancy Altman Scribe) and accurately reflects the services I performed and decisions made by , Saud Chao DO, as attested by the provider's signature.
== END 2016-05-29 12:12 | disposition home or self-care (01) ==
LOC: P.ED 20:21 → P.MEDSURG 05-29 00:45
PROVIDERS: ATTEND Family Medicine

== ENCOUNTER 2016-10-05 15:56 | Inpatient (IN) ==
[2016-10-05] MEDS ORDERED: ASPIRIN PO STA (16:18)
--- NOTE | 2016-10-05 16:26 | EKG Report ---
Test Performed on : 10/05/2016 4:04:45 PM Test Reason : Chest Pain Blood Pressure : / mmHG Vent. Rate : 091 BPM Atrial Rate : 091 BPM P-R Int : 164 ms QRS Dur : 094 ms QT Int : 390 ms P-R-T Axes : 042 -45 098 degrees QTc Int : 479 ms Sinus rhythm. with premature atrial complexes. Possible Left atrial enlargement Left axis deviation Left ventricular hypertrophy T wave abnormality, consider lateral ischemia Prolonged QT Abnormal ECG When compared with ECG of 03-OCT-2016 13:29, (Unconfirmed) premature atrial complexes. are now present Unconfirmed Result
[2016-10-05 16:45] LABS: MANUAL DIFF NEEDED? NO
--- NOTE | 2016-10-05 16:45 | Diag Imaging Result Doc PS360 ---
EXAM: CHEST-PORTABLE HISTORY: sob TECHNIQUE: Portable erect AP chest at 1641 COMMENT: There is cardiomegaly. Considering differences in inspiration there is been no significant change since 10/03/2016. IMPRESSION: Cardiomegaly. Electronically signed by Temo Rodriguez 10/05/2016 4:42 PM
[2016-10-05 16:50] LABS: BASO% 0.3 % (0.0-0.8); EOS% 1.5 % (0.0-10.0); HEMATOCRIT 41.7 % (42.0-52.0); HEMOGLOBIN 13.7 g/dL (14.0-18.0); IMM GRAN# 0.03 X1000 (0.0-0.04); IMM GRAN% 0.2 % (0.0-0.5); LYMPH# 3.12 X1000 (1.2-3.4); MCH 30.7 PG (27-31); MCHC 32.9 g/dL (33-37); MCV 93.5 FL (81-99); MONO# 1.17 X1000 (0.11-0.59); MPV 10.4 FL (7.4-10.4); PLT 176 X1000 (130-400); RBC 4.46 XMIL (4.7-6.1)
[2016-10-05 16:58] LABS: INR 0.95; PROTIME 9.9 Seconds (9.2-11.7); PTT 24.6 Seconds (22.0-36.0)
[2016-10-05 17:09] LABS: AGAP 12; ALBUMIN 4.3 g/dL (3.5-5.0); ALKALINE PHOSPHATASE 91 U/L (32-122); BUN 16 mg/dL (8-22); CALCIUM 8.4 mg/dL (8.8-10.2); CHLORIDE 103 mmol/L (98-107); CK PROFILE 60 U/L (24-204); COSMO 286; GOT 17 U/L (10-34); GPT 16 U/L (10-44); POTASSIUM 3.7 mmol/L (3.5-5.1); SODIUM 143 mmol/L (136-145); TCO2 28 mmol/L (25-35); TOTAL BILIRUBIN 0.21 mg/dL (0.20-1.00); TOTAL PROTEIN 6.7 g/dL (6.3-8.3)
--- NOTE | 2016-10-05 18:01 | PROVIDER DOCUMENTATION ---
This chart was entered by Solo Hare Scribe, acting as scribe for Cesar Gallagher MD. HPI-Chest Pain - General Chief Complaint: Chest Pain Stated Complaint: CP Time Seen by Provider: 10/05/16 16:17 Source: patient Allergies/Adverse Reactions: Patient Allergies Allergy/AdvReac Type Severity Reaction Status Date / Time Penicillins Allergy Intermediate Unknown Verified 10/05/16 16:24 amoxicillin Allergy Unknown Unknown Verified 10/05/16 16:24 atropine Allergy ANAPHYLAXIS Verified 10/05/16 16:24 ketorolac [From Toradol] Allergy RASH Verified 10/05/16 16:24 Latex, Natural Rubber Allergy RASH Verified 10/05/16 16:24 levofloxacin [From Levaquin] Allergy ITCHING Verified 10/05/16 16:24 Home Medications: Home Medication List Medication Instructions Recorded Confirmed Last Taken Type Alprazolam [Xanax] 1 mg PO BID PRN PRN #60 tablet 05/29/16 10/05/16 2 Weeks Ago Rx Aspirin EC 1 each PO QHS #90 tablet 05/29/16 10/05/16 10/05/16 09:00 Rx Furosemide 1 tab PO BID #60 tablet 05/29/16 10/05/16 10/05/16 09:00 Rx Losartan Potassium [Cozaar] 100 mg PO DAILY #30 tablet 05/29/16 10/05/16 09:00 Rx Omeprazole [Prilosec] 40 mg PO DAILY@0700 #90 capsule.dr 05/29/16 10/05/1610/05 09:00 Rx Potassium Chloride [K-Tab ER] 40 meq PO DAILY #30 tablet.er 05/29/16 10/05/16 09:00 Rx Amlodipine Besylate [Norvasc] 10 mg PO QPM #90 tablet 06/29/16 10/05/16 2 Weeks Ago Rx Albuterol Sulfate [Albuterol 8.5 gm IH Q4-6H PRN PRN #1 10/03/16 10/05/16 09:00 Rx Sulfate Hfa] hfa.[email or web address] Clopidogrel Bisulfate [Plavix] 75 mg PO DAILY 10/03/16 10/05/16 2 Weeks Ago History Hydrocodone/APAP 10 mg/325 mg 10 mg PO TID 10/05/16 10/05/16 2 Weeks Ago History [[place]-10] - History of Present Illness-CP Nature of Presenting Problem: patient is a 46 y/o M that presents to the ER with chest pain that radiates to left arm. He has associated n/v and diaphoresis with sob. patient was relaxing on couch when symptoms. He is a frequent visitor to the ER, with same symptoms. Reports cardiac history. Location: reports: central Chest Pain Radiation: reports: arms (left) Quality of Pain: reports: pressure Severity in ED: moderate Onset/Duration: abrupt, this afternoon Timing: still present, improving Context/Activities at Onset: reports: rest (sitting on couch being lazy) Modifying Factors: improves with: nothing Associated Symptoms: reports: nausea, shortness of breath, vomiting. denies: abdominal pain, back pain, dizziness, fatigue, fever/chills Nitro Today/Relief: no nitro taken today Aspirin Treatment Today: 325 mg x 1, provided by ED Prior Chest Pain/Cardiac Workup: reports: heart attack (2009 he reports his heart stopped for 9 minutes) Similar Symptoms Previously?: Yes Recently Seen Here or By Another Healthcare Provider: Yes (x 2 days ago for same ) Review of Systems - Adult - REVIEW OF SYSTEMS - ADULT Constitutional: denies: chills, fever Eyes: reports: no symptoms reported Ears, Nose, Mouth & Throat: reports: no symptoms reported Cardiovascular: reports: chest pain. denies: orthopnea, palpitations Respiratory: reports: shortness of breath. denies: dyspnea on exertion, wheezing Gastrointestinal: reports: nausea, vomiting. denies: abdominal pain, diarrhea Genitourinary: reports: no symptoms reported Musculoskeletal: reports: no symptoms reported Integumentary: reports: no symptoms reported Neurological: reports: no symptoms reported Psychiatric: reports: no symptoms reported Endocrine: reports: no symptoms reported Hematologic/Lymphatic: reports: no symptoms reported Allergic/Immunologic: reports: no symptoms reported All Other Systems: Reviewed and Negative Past History - Adult - PAST MEDICAL HISTORY-ADULT Review of Records: reports: Old Records Reviewed, Nursing Assessment Review, Medications Reviewed Cardiovascular: reports: cardiac disease, angina, CAD, CHF, HTN, hyperlipidemia , [place], pacemaker, other (cardiomyopathy/ 20% ejection fraction) Respiratory: reports: COPD Musculoskeletal: reports: chronic pain Psychiatric: reports: anxiety, ptsd - PRIOR SURGERIES/PROCEDURES Surgical/Procedure History: reports: reviewed, not pertinent, cardiac stent, pacemaker - IMMUNIZATION STATUS Childhood Immunizations: See Nurse Assessment Flu Vaccine: See Nurse Assessment - FAMILY HISTORY Family History: CAD under 55yo - SOCIAL HISTORY Smoking: quit greater than 1 year, cigarettes Alcohol Use Frequency: occasionally Living Situation: family Physical Exam-General - PHYSICAL EXAM-ADULT Initial Vital Signs Reviewed: Yes - CONSTITUTIONAL General Appearance: alert, anxious - EYES Eyes: PERRL/EOMI, pink conjunctivae - HEAD, EARS, NOSE, MOUTH & THROAT HENMT: normocephalic/atraumatic, moist mucous membranes, normal ENT inspection - NECK Neck: full range of motion, normal inspection - RESPIRATORY Respiratory: lungs clear, normal breath sounds, no respiratory distress, no accessory muscle use - CARDIOVASCULAR Cardiovascular: regular rate, rhythm, no edema, no JVD - GASTROINTESTINAL (ABDOMEN) Abdominal Exam: normal bowel sounds, non tender, soft, no organomegaly, no pulsatile mass - MUSCULOSKELETAL Extremity: normal range of motion, normal inspection, no pedal edema - SKIN Integumentary: normal color, warm/dry - NEUROLOGIC 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 tested, no motor/sensory deficits - PSYCHIATRIC Psych/Mental Status: oriented x 3, anxious Progress - PLAN OF CARE/RESULTS Progress/Plan/Lab Results: Vital Signs - 8 hr 10/05/16 16:06 Temperature 98.4 F Pulse Rate 88 Respiratory Rate 20 Blood Pressure 154/85 O2 Sat by Pulse Oximetry 99 Laboratory Results - last 24 hr 10/05/16 10/05/16 10/05/16 16:30 16:30 16:30 WBC 13.02 H RBC 4.46 L Hgb 13.7 L Hct 41.7 L MCV 93.5 MCH 30.7 MCHC 32.9 L RDW Std Deviation 18.4 H Plt Count 176 MPV 10.4 Immature Gran % (Auto) 0.2 Neut % (Auto) 65.0 Lymph % (Auto) 24.0 [place] % (Auto) 9.0 Eos % (Auto) 1.5 Baso % (Auto) 0.3 Immature Gran # (Auto) 0.03 Neut # (Auto) 8.46 H Lymph # (Auto) 3.12 [place] # (Auto) 1.17 H Eos # (Auto) 0.20 Baso # (Auto) 0.04 PT INR PTT (Actin FS) Sodium 143 Potassium 3.7 Chloride 103 Carbon Dioxide 28 Anion Gap 12 BUN 16 Creatinine 1.1 Estimated GFR/1.73 m2 > 60 BUN/Creatinine Ratio 15 Glucose 96 Calculated Osmolality 286 Calcium 8.4 L Magnesium 2.0 Total Bilirubin 0.21 AST 17 ALT 16 Alkaline Phosphatase 91 Creatine Kinase 60 Troponin T Hlq-V-Jwiqpowstqp Pept 2458 H Total Protein 6.7 Albumin 4.3 Globulin 2.4 Albumin/Globulin Ratio 1.8 10/05/16 10/05/16 16:30 16:30 WBC RBC Hgb Hct MCV MCH MCHC RDW Std Deviation Plt Count MPV Immature Gran % (Auto) Neut % (Auto) Lymph % (Auto) [place] % (Auto) Eos % (Auto) Baso % (Auto) Immature Gran # (Auto) Neut # (Auto) Lymph # (Auto) [place] # (Auto) Eos # (Auto) Baso # (Auto) PT 9.9 INR 0.95 PTT (Actin FS) 24.6 Sodium Potassium Chloride Carbon Dioxide Anion Gap BUN Creatinine Estimated GFR/1.73 m2 BUN/Creatinine Ratio Glucose Calculated Osmolality Calcium Magnesium Total Bilirubin AST ALT Alkaline Phosphatase Creatine Kinase Troponin T < 0.010 Nwh-A-Khfuiskrgpd Pept Total Protein Albumin Globulin Albumin/Globulin Ratio Orders Category Date Time Status Cardiac Monitoring DIRECTED Care 10/05/16 16:18 Active Oxygen Therapy- ED Nursing DIRECTED Care 10/05/16 16:18 Active Saline Loc NOW Care 10/05/16 16:18 Active CHEST-PORTABLE [RAD] Stat Exams 10/05/16 16:19 Completed CBC WITH ELECTRONIC DIFF [HEME] Stat Lab 10/05/16 16:30 Completed CK PROFILE [SP CHEM] Stat Lab 10/05/16 16:30 Completed COMPREHENSIVE METABOLIC PANEL [CHEM] Stat Lab 10/05/16 16:30 Completed MAGNESIUM [CHEM] Stat Lab 10/05/16 16:30 Completed PRO B-NATRIURETIC PEPTIDE Stat Lab 10/05/16 16:30 Completed PROTIME WITH INR [COAG] Stat Lab 10/05/16 16:30 Completed PTT [COAG] Stat Lab 10/05/16 16:30 Completed TROPONIN T Stat Lab 10/05/16 16:30 Completed Aspirin Med 10/05/16 16:18 Discontinued 325 mg PO STAT STA EKG [EKG] Stat Ther 10/05/16 16:18 Draft Result Diagrams: 10/05/16 16:30 10/05/16 16:30 - EKG 1 Time of EKG reading by physician:: 16:15 EKG Read and Signed by:: Cesar Gallagher EKG Interpretation (*Must complete 3 of following elements*): Abnormal Rate: 91 Rhythm: Sinus Rhythm with PAC [place]: left QRS: LVH MD Interval: normal ST Wave: non-specific ST changes - XRAY 1 XRAY Study: Chest Impression: Abnormal XRAY Interpretation: CMG Departure - Departure Date of Disposition Decision: 10/05/16 Time of Disposition Decision: 17:56 DIAGNOSIS: Chest pain, Acute exacerbation of CHF (congestive heart failure) Disposition: ADMITTED INPATIENT 09 Certified Medical Emergency: Emergent Condition: Stable Additional Freetext Instructions: admit to Dr. Bunch Referrals and Follow-Ups: None,PCP [Primary Care Provider] - - Critical Care Note This patient required my direct & personal management of CC.: No Attestation - Physician/ ELEONORA Attestation The physician spent face to face time with patient:: Yes Advanced Practice Provider documentation review:: Supervising physician onsite and consulted in the evaluation and care of this patient. The physician did have a face to face encounter with the patient. This chart was documented by the indicated scribe, (Solo Hare, Scribe) and accurately reflects the services I performed and decisions made by , Cesar Gallagher MD, as attested by the provider's signature.
[2016-10-05] MEDS ORDERED: MORPHINE IV ONE (18:35)
[2016-10-05] MEDS: LASIX IV SCH (18:50)
[2016-10-05] MEDS: NITROGLYCERIN TOP SCH (18:50)
[2016-10-05] MEDS ORDERED: VENTOLIN HFA INH PRN (19:27)
[2016-10-05] MEDS ORDERED: DUONEB (A & A) INH PRN (19:27)
[2016-10-05] MEDS: DUONEB (A & A) INH SCH ×2 (20:50→23:25)
--- NOTE | 2016-10-05 20:51 | HISTORY AND PHYSICAL ---
CHIEF COMPLAINT: Chest pain. HISTORY OF PRESENT ILLNESS: Mr. Nathan is a 46-year-old male with a significant cardiac history. He has severe coronary artery disease, severe systolic congestive heart failure with a known EF of 25% rate, hypertension, nicotine dependence, chronic pain, on narcotic therapy and medical noncompliance who comes to the ER today with chest pain that began at 3 p.m. He reports he was at rest and had a midsternal sharp pain that radiated down his left arm into his back. This was associated with shortness of breath, nausea, vomiting and diaphoresis. The pain is still going on at this time, has been minimally relieved with medications in the ER. He has had no fever, chills, cough or congestion. He does report lower extremity edema and orthopnea as well as wheezing. On arrival to the ER, he had labs and diagnostics done. He is noted to have a very mildly elevated white count and a proBNP of 2500. Chest x-ray showed cardiomegaly without significant pulmonary edema. The patient has had multiple appointments with [facility] which he has missed, most recently a few weeks ago. He reports that he had taken Lasix and was up all night urinating and too tired to go to the doctor the next day. He has an appointment with the [facility] on October 27. On review of his history, he has had a stress test done in January which showed multiple defects fixed in origin with no active ischemia. Today, his enzymes are negative thus far and his EKG shows normal sinus rhythm with around [address] depression in the lateral leads, which compared to EKG done around 2 weeks ago is mildly worse with regards ST depression. He has been given aspirin and he is going to be admitted for further treatment and evaluation. PAST MEDICAL HISTORY: Known coronary disease, status post myocardial infarction and stenting, systolic congestive heart failure with EF of 20-25%, status post ICD placement, hypertension, hyperlipidemia, COPD, nicotine dependence, chronic pain, anxiety, medical noncompliance. He has had an ICD pacemaker placed, coronary stenting and possibly a pericardial window or pericardiocentesis. SOCIAL HISTORY: Patient smokes around 3-4 cigarettes a day. He reports occasional alcohol. Denies illicit drug use. 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 He is . and child are at the bedside. FAMILY HISTORY: Noncontributory. REVIEW OF SYSTEMS: Fourteen-point review of systems obtained and found to be negative with the exception of the HPI. HOME MEDICATIONS: Albuterol sulfate inhaled every 4-6 hours, Xanax 1 mg b.i.d. , Norvasc 10 mg Aspirin 325 mg at bedtime. Plavix 75 mg daily. Lasix 80 mg b.i.d. [place] 10 mg t.i.d. Cozaar 100 mg daily. Prilosec 40 mg daily. K-Tab ER 40 mEq p.o. daily. ALLERGIES: Penicillin, amoxicillin, atropine, Toradol, latex and Levaquin. PHYSICAL EXAMINATION: VITAL SIGNS: Blood pressure is 154/85, heart rate 88, respiratory rate is 20, O2 saturation 99% on room air. Temperature is 98.4 degrees. GENERAL: This is an overweight, male, lying in hospital bed. No acute distress. NEUROLOGIC: The patient is awake, alert, oriented and follows commands without focal deficits. HEENT: Head atraumatic and normocephalic. His pupils are equal, round, and reactive to light. Oral mucosa is moist. Trachea is midline. No JVD. CHEST: Wheezes bilaterally. Diminished air entry bilaterally. CARDIOVASCULAR: Regular rate and rhythm. S1-S2 is noted. No murmurs. GI: Soft, nondistended, nontender. Bowel sounds active. EXTREMITIES: Trace edema. Pulses 1+ bilaterally. DIAGNOSTIC DATA: Chest x-ray shows cardiomegaly. EKG, normal sinus rhythm with [address] depression in anterolateral leads. WBC 13.02, hemoglobin 13.7, hematocrit 41.7 , platelet count 176,000. INR 0.95, sodium 143, potassium 3.7, chloride 103, CO2 is 28, anion gap is 12. BUN 16, creatinine 1.1. Glucose is 96, calcium 8.4, magnesium 2. Total bilirubin 0.21 , AST 17, ALT 16, alkaline phosphatase 91, troponin negative. CK 60. ProBNP 2458. Albumin 4.3. ASSESSMENT AND PLAN: 1. Chest pain: Certainly patient has symptoms concerning for acute coronary syndrome. However, his troponins remain negative. We will admit him to the floor with telemetry and continue his aspirin, add nitroglycerin transdermal and gave him 2 mg of morphine now. He is not hypoxic, so we will hold off on any oxygen. We will consult Cardiology, make sure the patient continues his aspirin and Plavix as well. We will add Lipitor at bedtime as well. 2. Systolic congestive heart failure: Patient reports he has had some lower extremity edema and orthopnea; however, he appears to be euvolemic at this time. Perhaps mildly hypervolemic. I will add IV Lasix 40 mg b.i.d., follow strict input and output and daily weights. He has had an echo within the last 6 months. He is on Cozaar. He certainly has room for improvement on his heart failure medications. He is not on a beta shania. We would also consider Entresto, but will defer to Cardiology. 3. Leukocytosis: Likely reactive. Chest x-ray does not show any infiltrates. The patient is afebrile and there are no other signs of infection. We will check a UA. 4. Hypertension: Continue his home medications. 5. Chronic obstructive pulmonary disease: Patient is wheezing, but he denies cough with expectoration. So we will go ahead and give him some Solu-Medrol now, but hold off on any antibiotics. He does not seem to be in exacerbation. 6. Chronic pain and anxiety: We will continue his home medications. 7. Medical noncompliance: We have advised the patient that it is extremely important that he follow up with the back hand as scheduled and to continue medication regimen as directed and to quit smoking. He verbalized understanding. 8. Nicotine dependence: Patient has been highly advised to quit. We will write a nicotine patch. Continue daily cessation education. 9. Deep vein thrombosis prophylaxis will be provided with Lovenox. Further recommendations to follow. Dictated by ILIR Smith for Hiwot Thomas MD Seen and examined pt and discussed case with LOADING SHOVEL OILER cc: ILIR Smith MD [facility]
[2016-10-05] MEDS: LIPITOR PO SCH (20:53)
[2016-10-05] MEDS: NICODERM PATCH TD SCH (20:53)
[2016-10-05] MEDS: XANAX PO PRN (20:53)
[2016-10-05] MEDS: ASPIRIN EC PO SCH (20:55)
[2016-10-05] MEDS: SOLU-MEDROL IV SCH (20:56)
[2016-10-05] MEDS ORDERED: NORCO-10 PO SCH (21:00)
[2016-10-05] MEDS ORDERED: NORVASC PO SCH (21:00)
[2016-10-06] MEDS: NITROGLYCERIN TOP SCH ×4 (01:47→19:08)
[2016-10-06] MEDS: DUONEB (A & A) INH SCH ×6 (02:50→23:20)
[2016-10-06 03:45] LABS: HEMATOCRIT 44.2 % (42.0-52.0); HEMOGLOBIN 14.4 g/dL (14.0-18.0); MCHC 32.6 g/dL (33-37); MCV 92.1 FL (81-99); RBC 4.8 XMIL (4.7-6.1)
[2016-10-06 03:56] LABS: HEMOGLOBIN A1C 5.9 % (4.8-6.0)
[2016-10-06 04:44] LABS: AGAP 13; BUN 18 mg/dL (8-22); CALCIUM 8.9 mg/dL (8.8-10.2); CHLORIDE 98 mmol/L (98-107); COSMO 286; IRON SATURATION 20 %; POTASSIUM 3.9 mmol/L (3.5-5.1); SODIUM 139 mmol/L (136-145); TCO2 28 mmol/L (25-35); TIBC 334 ug/dL; TOTAL IRON 66 ug/dL (53-167); UNBOUND IRON 268 ug/dL (112-346)
[2016-10-06] MEDS: LASIX IV SCH ×2 (05:42→21:03)
[2016-10-06] MEDS: NORCO-10 PO SCH ×4 (05:44→21:02)
[2016-10-06] MEDS: SOLU-MEDROL IV SCH ×3 (05:47→11:46)
[2016-10-06] MEDS: PRILOSEC PO SCH (06:07)
[2016-10-06] MEDS ORDERED: MORPHINE IV ONE (11:06)
[2016-10-06] MEDS: COZAAR PO SCH (11:08)
[2016-10-06] MEDS: NICODERM PATCH TD SCH ×2 (11:10→12:24)
[2016-10-06] MEDS: LOVENOX SUBQ SCH (11:10)
[2016-10-06] MEDS: PLAVIX PO SCH (11:12)
--- NOTE | 2016-10-06 11:39 | CONSULTATION ---
DATE OF CONSULTATION: 10/06/2016 REQUESTING PHYSICIAN: Hospitalist Service. REASON FOR CONSULTATION: Chest pain. HISTORY: Mr. Nathan is a 46-year-old male who presented to the hospital yesterday with complaints of recurrent chest pains that have been going on for the past 2 days. He says that the pains are intense, somewhat waxing and waning, in the center of the chest with some radiation down the left arm, unrelated to exercise, not associated with nausea, vomiting, dizziness, or palpitations. He says that the pains resemble the original heart attack pain that he had several years ago. Upon presentation to the emergency room, they have done electrocardiograms that show sinus rhythm with PACs and nonspecific ST-T abnormality. He has received 3 sets of troponin levels and all of them are negative. He is somewhat uptight because he has not had breakfast. His BUN, creatinine, and electrolytes are normal. His white count initially was 13,000 and today is normal. A chest x-ray was done at the time of presentation and it shows thyromegaly with no significant infiltrates. PAST MEDICAL HISTORY: Positive for severe coronary heart disease. He says that he suffered a myocardial infarction in 2009, when he was living in [place], [place]. He was taken to [place], where they did a stent. Subsequently, he has had more procedures, one done in [place], [place], including revision of a previously implanted AICD defibrillator and he had also 3 additional stents. Since 2017, he has not had any further cardiac procedures; however, he has been seen at the [facility] several times with chest pains. As a matter of fact, he was admitted in August [address] Lozano. At that time, his urine tested positive for cocaine. He has been to the emergency room on 09/10/2015, 10/05/2015, 10/22/2015, 10/27/2015, 2015, 12/12/2015, 01/16/2016, and 01/24/2016. Admitted in January 2016 to [facility], then back to the ER on 02/11/2016 and 02/19/2016, then 02/24/2016, 03/05/2016, 03/06/2016, 03/30/2016, 04/19/2016, 05/09/2016 twice, 05/16/2016, 05/21/2016, and 05/24/2016. Then admitted on 10/2016 again to [facility]. Then he has been in 06/01/2016, 06/21/2016, 06/29/2016, 09/22, 10/03/2016, and now he has been admitted 10/05/2016. All of these presentations to the emergency room were for either chest pain, palpitations, or shortness of breath. There was one when he reported stroke-like symptoms, another one syncope, and another time he was ruled out for myocardial infarction . PAST SURGICAL HISTORY: Included the implantation of AICD back in 2009 or 2010. He has no abdominal surgery. He has had multiple heart catheterizations in the past. FAMILY HISTORY: Positive for stroke and cancer. SOCIAL HISTORY: He is . He and his lived in [place] previously. They have been commuting back and forth between [place] and [place]. He has 2 young children, ages 13 and 8. 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 He said that his benefits were removed, so right now he does not enjoy [employer] benefits.Patient is a smoker. ALLERGIES: He is allergic to Levaquin, penicillin, atropine, latex, and Toradol. HOME MEDICATIONS: Hydrocodone APAP 10/325 three times a day, potassium chloride 40 mEq daily, Prilosec 40 mg daily, Losartan 100 mg daily, furosemide 1 tablet twice a day, aspirin 1 tablet at bedtime, albuterol inhaler, Plavix 75 daily, amlodipine 10 mg at bedtime, and Xanax 1 mg twice a day. REVIEW OF SYSTEMS: His review of systems is noncontributory. PHYSICAL EXAMINATION: VITAL SIGNS: Blood pressure is 127/79, temperature 97.8, pulse 75, respirations 16. GENERAL: He is awake, alert, oriented, in no distress. HEENT: Unremarkable. CHEST: Clear to auscultation and percussion. He does have the pacemaker area on the left side, which is slightly tender to palpation. HEART: Sounds are normal. ABDOMEN: Nontender. EXTREMITIES: Showed good pulses, no edema. NEUROLOGICAL: Follows commands. Moves all 4 extremities. No other issues. IMPRESSIONS: 1. Patient presenting with recurrent chest pain. This may represent unstable angina pectoris. So far, 3 troponin levels are negative and his EKG is only mildly abnormal. 2. History of multiple stents. 3. History of automatic implantable cardioverter-defibrillator. 4. Chronic pain syndrome. 5. Tobacco user. RECOMMENDATIONS: At this point in time, we will request a nuclear perfusion study. Will have to get records from [place]. I would ask for a stress test in the morning tomorrow. Will do echocardiogram. Further advice will be forthcoming. The patient is encouraged to quit smoking. He also needs to establish himself with a primary care physician for management of his noncardiac issues, including his chronic pain syndrome. cc: Jorge Saldana MD MTDD
[2016-10-06] MEDS: LOPRESSOR PO SCH ×2 (11:58→21:02)
[2016-10-06] MEDS ORDERED: MORPHINE IV PRN (13:40)
--- NOTE | 2016-10-06 17:15 | PROGRESS NOTE ---
DATE: 10/06/2016 SUBJECTIVE: The patient is resting comfortably in bed. He does complain of chest pain. The patient has also been very belligerent with staff. OBJECTIVE: Vital Signs: Temperature 98, blood pressure 150/93, heart rate 88, respiratory rate 16, O2 saturations 99% on room air. General: This is a middle-aged male, lying in bed, in no acute distress. Head: Normocephalic, atraumatic. Heart: S1, S2 normal. Regular rate and rhythm. Lungs: Clear to auscultation bilaterally. No crackles. No rales. Abdomen: Positive bowel sounds. Soft, nontender, nondistended. Extremities: No edema. No cyanosis. Neurologic: The patient is alert and oriented x3. LABS: Reviewed. ASSESSMENT AND PLAN: 1. Recurrent chest pain. Cardiac workup is currently in progress as directed by the teacher of the deaf. 2. Chronic pain. A urine drug toxicology screen has been requested and the patient is refusing to submit a urine sample. We will continue to monitor this closely. 3. Severe coronary artery disease with multiple stents. Continue on the current cardiac medications. 4. Ischemic cardiomyopathy status post automatic implantable cardioverter- defibrillator. Aware. 5. Folate deficiency. We will start the patient on folic acid. 6. Anxiety disorder. Continue on Xanax. 7. Tobacco dependence. The patient has been counseled extensively about smoking cessation. 8. Deep vein thrombosis prophylaxis. Continue on Lovenox. cc: Rukhsana Lozano MD MTDD
[2016-10-06] MEDS: NORVASC PO SCH (21:01)
[2016-10-06] MEDS: LIPITOR PO SCH (21:01)
[2016-10-06] MEDS: ASPIRIN EC PO SCH (21:02)
[2016-10-06] MEDS: XANAX PO PRN (21:10)
--- NOTE | 2016-10-06 22:49 | ECHO REPORT ---
ORDER DATE: 10/06/2016 MEASUREMENTS: Left ventricular end-diastolic diameter 7.8, posterior wall thickness 1, septal thickness 1.1, left atrium 4.8, aortic root 3.8. SUMMARY: 1. Fair quality study. 2. Aortic valve is trileaflet and opens normally on 2-dimensional images. There is mild aortic regurgitation. Mitral, tricuspid, and pulmonic valves are without structural abnormality with very mild mitral regurgitation and mild tricuspid regurgitation. The estimated systolic PA pressure by Doppler is 40-45 mmHg. The aortic root is normal in size. 3. Severe left ventricular enlargement with normal wall thickness demonstrated. Estimated left ventricular ejection fraction approximately 20% in the setting of severe global hypokinesis. Intravenous echo contrast agent Definity administered to enhance endocardial definition for purposes of wall motion analysis and assessment of left ventricular systolic function. There is no evidence of left ventricular thrombus. Left atrium is mildly enlarged. Right atrium, right ventricle are normal size with normal right ventricular systolic function. Pacemaker/defibrillator lead evident in right ventricle. 4. No pericardial effusion. 5. Appearance of inferior vena cava suggests normal central venous pressure. CONCLUSIONS: 1. Mild aortic regurgitation. 2. Very mild mitral regurgitation. 3. Mild tricuspid regurgitation with mild pulmonary hypertension by Doppler. 4. Severe left ventricular enlargement with estimated left ventricular ejection fraction 20% in the setting of severe global hypokinesis. 5. Mild left atrial enlargement. cc: MD Jorge Tenorio MD
[2016-10-07] MEDS: NITROGLYCERIN TOP SCH ×3 (03:25→13:11)
[2016-10-07] MEDS: DUONEB (A & A) INH SCH ×4 (04:09→14:46)
[2016-10-07] MEDS: PRILOSEC PO SCH ×2 (05:51→06:02)
[2016-10-07] MEDS: NORCO-10 PO SCH ×2 (05:51→13:10)
[2016-10-07 06:06] LABS: HEMATOCRIT 45.4 % (42.0-52.0); HEMOGLOBIN 14.9 g/dL (14.0-18.0); MCHC 32.8 g/dL (33-37); MCV 94.6 FL (81-99); MPV 10.5 FL (7.4-10.4); RBC 4.8 XMIL (4.7-6.1)
[2016-10-07 06:16] LABS: AGAP 10; BUN 20 mg/dL (8-22); CALCIUM 8.8 mg/dL (8.8-10.2); CHLORIDE 97 mmol/L (98-107); COSMO 278; POTASSIUM 4.2 mmol/L (3.5-5.1); SODIUM 137 mmol/L (136-145); TCO2 30 mmol/L (25-35)
[2016-10-07] MEDS ORDERED: LEXISCAN ONE (07:54)
[2016-10-07] MEDS ORDERED: FOLIC ACID PO SCH (09:00)
[2016-10-07] MEDS: NORVASC PO SCH (10:50)
[2016-10-07] MEDS: COZAAR PO SCH (10:50)
[2016-10-07] MEDS: PLAVIX PO SCH (10:50)
[2016-10-07] MEDS: LOVENOX SUBQ SCH (10:51)
[2016-10-07] MEDS: LOPRESSOR PO SCH (10:51)
[2016-10-07] MEDS: NICODERM PATCH TD SCH (10:52)
[2016-10-07] MEDS: LASIX IV SCH ×2 (10:52→12:56)
[2016-10-07 11:17] VITALS: BP 139/81
--- NOTE | 2016-10-07 11:23 | Diag Imaging Result Document ---
PROCEDURE NAME: MYOCARDIAL PERF SCAN, STR/REST - 10/06/2016 INDICATION: Chest pain, history of coronary artery disease, prior TN, AICD. PROCEDURES PERFORMED: 1. Walking Lexiscan stress. 2. Two-day stress rest myocardial perfusion imaging. PROCEDURE IN DETAIL: Mr. Nathan was brought to the nuclear laboratory and had a resting study on the with injection of 36 mCi of technetium-99m sestamibi with usual imaging protocol utilized. Subsequently he is brought back and had a walking Lexiscan on the with injection of 36.9 mCi of technetium-99m sestamibi with usual imaging protocol utilized. FINDINGS: LEXISCAN STRESS RESULTS: 1. Baseline EKG shows sinus rhythm. 2. Lexiscan stress did not demonstrate any evidence of ischemic related EKG changes or significant arrhythmias during the course of the study. PERFUSION IMAGING RESULTS: 1. No evidence of abnormal extracardiac uptake. 2. TID ratio is 1.09. 3. Perfusion imaging shows 2 separate defects. The 1st is a very large defect involving the anterior apical and mid anterior, basal anterior and large portions of the anterior septal and anterior lateral segments. This is a predominantly fixed defect. The second defect is a small sized, mild intensity, fixed defect in the inferior apical, mid inferior and basal inferior segments. There is no evidence of ischemia on this study. 4. Severely reduced ejection fraction of 21% on stress with an end-diastolic volume of 422 and end-systolic volume of 331 and severe global hypokinesis. cc: MD Jorge Dove MD [facility]
--- NOTE | 2016-10-07 11:24 | Diag Imaging Result Doc PS360 ---
EXAM: CHEST-PORTABLE HISTORY: Cough TECHNIQUE: Portable upright AP COMPARISON: 10/05/2016 FINDINGS: There is a left-sided pacemaker. The heart is enlarged. The lungs are well expanded. The vessels are not distended. No pleural effusions identified. No consolidation. IMPRESSION: 1.No pneumonia 2.Marked cardiomegaly Electronically signed by Tom Vargas 10/07/2016 11:21 AM
--- NOTE | 2016-10-08 12:07 | DISCHARGE SUMMARY ---
ADMISSION DATE: 10/05/2016 DISCHARGE DATE: 10/07/2016 ADMISSION DIAGNOSES: 1. Two chest pain, rule out acute coronary syndrome. 2. Systolic congestive heart failure. 3. Leukocytosis. 4. Hypertension. 5. COPD. 6. Chronic pain syndrome. 7. Anxiety. 8. Medical noncompliance. 9. Nicotine dependence. DISCHARGE DIAGNOSES: 1. Recurrent chest pain. Cardiac enzymes remained negative throughout stay. Chest pain resolved. 2. Chronic pain syndrome. 3. Severe coronary artery disease with multiple stents, continuing current cardiac medications. 4. Ischemic cardiomyopathy status post automatic implantable cardioverter defibrillator, with systolic congestive heart failure. Continue diuretics and home medications. 5. Folate deficiency, continue on folic acid. 6. Anxiety disorder, continue Xanax. 7. Tobacco dependence, smoking cessation discussed. CONSULTS: Cardiology, Dr. Saldana. PROCEDURES: None. HOSPITAL COURSE: Mr. Donald Nathan is a 46-year-old, male, with a significant cardiac history of coronary artery disease, severe systolic congestive heart failure with an EF of 25%, ischemic cardiomyopathy, hypertension, nicotine dependence, chronic pain syndrome, and medical noncompliance who presented to the ER on 10/05/2016, with complaints of chest pain that began around 3 p.m. on day of admission. He reported the pain as being midsternal but radiated down his left arm and into his back. He did have associated shortness of breath , nausea, vomiting, and diaphoresis, and the pain apparently is continuous with minimal relief via medications that he received in the ER. He denied any fever, chills, cough, or congestion, and actually reported lower extremity edema and orthopnea, as well as wheezing. Workup revealed a mildly elevated white count, and a proBNP of 2500. Chest x-ray showed may be cardiomegaly but no significant pulmonary edema. Apparently, he also had multiple appointments with [facility], which he missed a few weeks ago. The patient reported that he had taken Lasix and was up all night urinating and too tired to go to the doctor the next day. Apparently, he also has an appointment with [facility] on October 27. His last stress test was in January, which showed multiple defects with no active ischemia. Cardiac enzymes remained negative throughout stay. EKG remained in sinus rhythm, but did have some mild ST depression in the lateral leads, but the ST depression was more pronounced then 1 that was obtained 2 weeks prior, and he received aspirin. Cardiology was consulted, and also added was Lasix [address] Saldana saw the patient during this admit. It was noted that on time of admit, his urine drug screen showed positive for cocaine, which could enhance the complaints of chest pain and heart failure. It is noted that he has had this several emergency room visits since 2015: On 09/10/2015, 10/05/2015, 10/22/2015, 10/27/2015, 11/05/2015, 12/12/2015, 2015, 01/24/2016, 02/11/2016, 02/19/2016, 02/24/2016, 03/05/2016, 03/06/2016, 03/30/2016, 2016, 05/09/2016 twice, 05/16/2016, 05/21/2016, 05/24/2016, 05/29/2016, 06/01/2016, 06/21/2016, 06/29/2016, 09/22/2016, 10/03/2016, and now again, 10/05/2016, where we admitted him. All presentations to the ER were for chest pain, palpitations or shortness of breath. There was 1 for stroke-like symptoms, another for syncope, and other rule out IA. He has had multiple heart catheterizations. He had AICD placed in 2009 or 2010, so Dr. Saldana's recommendation is to a nuclear perfusion study. We will get records from [place] and a stress test during this admit , along with a repeat echocardiogram. His diagnosis is likely unstable angina pectoris, because EKG is only mildly abnormal and he had 3 troponins that are negative. His perfusion scan revealed no evidence of ischemia or arrhythmias. It did show a very large defect involving the anterior apical, and mid anterior basal anterior and large portions of the anterior septal and anterior lateral segments. That one is a predominantly fixed defect. The second defect was small, mild intensity fixed defect in the inferior apical and mid inferior and basal inferior segments , but no evidence of ischemia on the study. EF on the study showed 21%, with an end-diastolic volume of 422, and systolic volume of 331, and severe global hypokinesis. A limited echocardiogram showed mild aortic regurgitation, mild mitral regurgitation, mild tricuspid regurgitation, and mild pulmonary hypertension with a pressure of 40-45 mmHg, severe left ventricular enlargement with estimated EF of 20%, with severe global hypokinesis, and a mild left atrial enlargement. So Dr. Saldana wanted to transfer the patient to [facility], but the patient refused. During his stay, he did have an elevated white blood cell count, was likely reactive. No fever or chills. A chest x-ray on day of discharge was marked cardiomegaly. No pneumonia, no pulmonary edema. He had stable vital signs. Labs were stable, so he was discharged to home. He is to follow with Dr. Castorena on 10/18/2016. DISCHARGE VITAL SIGNS: Temperature 98.6, heart rate 79, respiratory rate 18, blood pressure 139/81, O2 saturation 99% on room air. DISCHARGE LAB DATA: White blood cells 21,000, hemoglobin 14, hematocrit 45, platelet count 221,000. Sodium 137, potassium 4.2, BUN 20, creatinine 0.8, glucose 118. Hemoglobin A1c of 5.9. Iron studies normal. Cardiac enzymes negative. ProBNP 2458. Folate 7.4. TSH 0.95. Free T4 0.92. PERTINENT IMAGING: EKG on admission with sinus rhythm with PACs rate 91, QTc is 479, prolonged QT. Mild ST-depression in the lateral leads. Chest x-ray on admit showed cardiomegaly, no pulmonary edema or pneumonia. On 10/06/2016, myocardial perfusion scan. Baseline EKG showed sinus rhythm, no ischemia. There were 2 defects: The first was very large, which involved the anterior apical and mid anterior, basal anterior and large portions of the anterior septal and anterior lateral segment, it was predominantly fixed. The second defect was a small mild intensity fixed defect in the inferior apical , mid inferior and basal inferior segments, but no signs of ischemia on this study. He has severely reduced EF of 21%. On 10/06/2016, he had a limited-view echocardiogram, which showed mild AR , mild MR, mild TR, mild pulmonary artery hypertension with a 40-45 mmHg. Severe left ventricular enlargement with an EF 20%, and severe global hypokinesis, and mild left atrial enlargement. Chest- x-ray, no pneumonia, marked cardiomegaly on 10/07/2016. DISCHARGE DIET: Heart healthy diabetic diet. DISCHARGE INSTRUCTIONS: Follow up with Dr. Castorena on 10/18/2016. Follow up with Cardiology. DISCHARGE DISPOSITION: Home. I personally evaluated this patient face to face, laboratory and images were reviewed, this patient is stable to go home, He will have an stress test done hopefully next Monday, continue with medications at home, agree with the rest of the assessment and plan, Joes Teague MD Dictated by ILIR Urias for Jose Lundy MD cc: ILIR Urias MD Luis N. Villanueva, MD Zz Unknown MTDD
== END 2016-10-07 15:26 | disposition home or self-care (01) ==
LOC: ED 15:56 → 4N 18:49 → SUATTDRO 18:49 → 4N 19:17
PROVIDERS: ATTEND Internal Medicine

== ENCOUNTER 2018-02-23 13:57 | Inpatient (IN) ==
--- NOTE | 2018-02-23 14:49 | EKG Report ---
Test Performed on : 02/23/2018 2:09:32 PM Test Reason : chest pain Blood Pressure : / mmHG Vent. Rate : 108 BPM Atrial Rate : 108 BPM P-R Int : 172 ms QRS Dur : 102 ms QT Int : 362 ms P-R-T Axes : 064 -44 086 degrees QTc Int : 485 ms Sinus tachycardia. with occasional premature ventricular complexes. Left atrial enlargement Left axis deviation Nonspecific T wave abnormality Abnormal ECG When compared with ECG of 12-FEB-2018 09:20, premature atrial complexes. are no longer present Unconfirmed Result
--- NOTE | 2018-02-23 14:55 | Diag Imaging Result Doc PS360 ---
EXAM: CHEST-2 VIEWS 02/23/2018 HISTORY: chest pain TECHNIQUE: PA and lateral chest COMMENT: There is marked cardiomegaly with left ventricular enlargement. There is increased interstitial markings with Bryan B lines. Compared to 02/14/2018 the lungs are better expanded and the radiograph is better exposed. IMPRESSION: Cardiomegaly and mild pulmonary edema. Electronically signed by Temo Rodriguez 02/23/2018 2:52 PM
[2018-02-23] MEDS ORDERED: BUMEX IV ONE (15:31)
[2018-02-23] MEDS: ZAROXOLYN PO ONE ×2 (16:00→16:40)
[2018-02-23 16:15] LABS: BASO# 0.07 X1000 (0.0-0.2); BASO% 0.8 % (0.0-0.8); EOS# 0.08 X1000 (0.0-0.7); EOS% 0.9 % (0.0-10.0); HEMATOCRIT 43.1 % (42.0-52.0); HEMOGLOBIN 13.2 g/dL (14.0-18.0); LYMPH# 1.56 X1000 (1.2-3.4); LYMPH% 17.7 % (20.5-51.1); MCH 26.7 PG (27-31); MCHC 30.6 g/dL (33-37); MCV 87.2 FL (81-99); MONO# 0.54 X1000 (0.11-0.59); MONO% 6.1 % (1.7-9.3); MPV 9.9 FL (7.4-10.4); NEUT# 6.56 X1000 (1.4-6.5); NEUT% 74.5 % (42.2-75.2); PLT 254 X1000 (130-400); RBC 4.94 XMIL (4.7-6.1); RDW 18.1 % (11.5-14.5); WBC 8.81 X1000 (4.8-10.8)
[2018-02-23 16:20] LABS: INR 1.27; PROTIME 16.9 Seconds (11.0-16.0)
[2018-02-23 16:31] LABS: UR AMPHETAMINES QUAL NONE DETECTED (NONE DETECT); UR BARBITUATES QUAL NONE DETECTED (NONE DETECT); UR BENZODIAZEPIN QUAL NONE DETECTED (NONE DETECT); UR CANNABINOIDS QUAL NONE DETECTED (NONE DETECT); UR COCAINE QUAL NONE DETECTED (NONE DETECT); UR METHADONE QUAL NONE DETECTED (NONE DETECT); UR OPIATES QUAL NONE DETECTED (NONE DETECT); UR OXYCODONE QUAL NONE DETECTED (NONE DETECT); UR PCP QUAL NONE DETECTED (NONE DETECT)
[2018-02-23 16:39] LABS: ALB/GLOB RATIO 1.3; CALCIUM 9.5 mg/dL (8.8-10.2); CREATININE 1.4 mg/dL (0.7-1.2); MAGNESIUM 2.2 mg/dL (1.5-2.7); POTASSIUM 3.3 mmol/L (3.5-5.1); TOTAL BILIRUBIN 3.27 mg/dL (0.20-1.00)
[2018-02-23 17:00] LABS: CK INDEX 1.9 (0.0-2.5); CK-MB 6.48 ng/mL (0.0-5.0)
--- NOTE | 2018-02-23 18:39 | PROVIDER DOCUMENTATION ---
This chart was entered by Yoly Vegas Scribe, acting as scribe for Oscar Stewart MD. HPI-Chest Pain - General Chief Complaint: Chest Pain Stated Complaint: HEART FAILURE CHEST PAINS Time Seen by Provider: 02/23/18 15:17 Source: patient, family Allergies/Adverse Reactions: Patient Allergies Allergy/AdvReac Type Severity Reaction Status Date / Time Penicillins Allergy Intermediate Unknown Verified 02/23/18 14:56 amoxicillin Allergy Unknown Unknown Verified 02/23/18 14:56 atropine Allergy ANAPHYLAXIS Verified 02/23/18 14:56 ketorolac [From Toradol] Allergy RASH Verified 02/23/18 14:56 Latex, Natural Rubber Allergy RASH Verified 02/23/18 14:56 levofloxacin [From Levaquin] Allergy ITCHING Verified 02/23/18 14:56 lorazepam [From Ativan] AdvReac Unknown Verified 02/23/18 14:56 Home Medications: Home Medication List Medication Instructions Recorded Confirmed Last Taken Type Amlodipine [Norvasc] 2.5 mg PO BID #60 tablet 10/07/16 02/12/18 10/13/16 08:00 Rx Aspirin EC 1 each PO QHS #90 tablet 10/07/16 02/12/18 10/13/16 08:00 Rx Furosemide 1 tab PO BID #60 tablet 10/07/16 02/12/18 10/13/16 08:00 Rx Losartan Potassium [Cozaar] 100 mg PO DAILY #30 tablet 10/07/16 02/12/18 08:00 Rx Clopidogrel Bisulfate [Plavix] 75 mg PO DAILY #90 tab 07/03/17 02/12/18 Unknown Rx Albuterol 2.5MG/Ipratrop 0.5MG 3 ml INH RTQ6H #120 neb 09/07/17 02/12/18 Unknown Rx [Duoneb (A & A)] Alprazolam [Xanax] 2 mg PO BID PRN #42 tab 09/07/17 02/12/18 Unknown Rx Albuterol Sulfate [Proair Hfa] 2 puff IN Q4H PRN PRN 10/05/17 02/12/18 Unknown History Famotidine 40 mg PO DAILY 10/05/17 02/12/18 Unknown History ROSUVAstatin [Crestor] 10 mg PO DAILY 10/05/17 02/12/18 Unknown History Carvedilol [Coreg] 3.25 mg PO BID 01/08/18 02/12/18 Unknown History Hydrocodone Bit/Acetaminophen 1 each PO TID 01/08/18 02/12/18 Unknown History [Hydrocodon-Acetaminophn 10-325] Potassium Chloride [K-Tab ER] 40 meq PO BID 01/08/18 02/12/18 Unknown History Ibuprofen/Hydrocodone [Vicoprofen 1 ea PO Q4H PRN PRN #10 tab 02/04/18 02/12/18 Unknown Rx 200/7.5 mg] - History of Present Illness-CP Nature of Presenting Problem: 47 yohm presents to the ed with nc/o chest pain and sob for 1 week. pt is nontoxic in appearance Location: reports: substernal Chest Pain Radiation: reports: no radiation Quality of Pain: reports: aching Severity in ED: mild Onset/Duration: 1 week ago Timing: still present Context/Activities at Onset: reports: light activity Modifying Factors: improves with: nothing Associated Symptoms: reports: fatigue, shortness of breath. denies: abdominal pain, back pain, dizziness, nausea, vomiting Nitro Today/Relief: no nitro taken today Similar Symptoms Previously?: Yes Recently Seen Here or By Another Healthcare Provider: No Review of Systems - Adult - REVIEW OF SYSTEMS - ADULT Constitutional: denies: chills, fever Eyes: denies: blurred vision, double vision Ears, Nose, Mouth & Throat: reports: no symptoms reported Cardiovascular: reports: chest pain. denies: palpitations, syncope Respiratory: reports: see HPI, shortness of breath. denies: cough, wheezing Gastrointestinal: denies: abdominal pain, diarrhea, nausea, vomiting Genitourinary: reports: no symptoms reported Musculoskeletal: denies: back pain, neck pain Integumentary: reports: no symptoms reported Neurological: reports: no symptoms reported Psychiatric: reports: no symptoms reported Endocrine: reports: no symptoms reported Hematologic/Lymphatic: reports: no symptoms reported Allergic/Immunologic: reports: no symptoms reported All Other Systems: Reviewed and Negative Past History - Adult - PAST MEDICAL HISTORY-ADULT Review of Records: reports: Old Records Reviewed, Nursing Assessment Review, Medications Reviewed, Social history reviewed & non-contributory. Major Childhood Illnesses: reports: denies history Cardiovascular: reports: cardiac disease, angina, CAD, CHF, HTN, hyperlipidemia , [place], pacemaker, other (cardiomyopathy/ 20% ejection fraction) Respiratory: reports: COPD Gastrointestinal: reports: denies history Obstetrical/Gynecological: reports: denies history Genitourinary: reports: denies history Musculoskeletal: reports: chronic pain Neurological: reports: denies history Psychiatric: reports: anxiety, ptsd Endocrine/Immune: reports: denies history Other Conditions: reports: denies history - PRIOR SURGERIES/PROCEDURES Surgical/Procedure History: reports: reviewed, not pertinent, cardiac stent, pacemaker - IMMUNIZATION STATUS Childhood Immunizations: See Nurse Assessment Flu Vaccine: See Nurse Assessment - FAMILY HISTORY Family History: CAD under 55yo - SOCIAL HISTORY Smoking: quit greater than 1 year Substance Use: denies Living Situation: family Physical Exam-General - PHYSICAL EXAM-ADULT Initial Vital Signs Reviewed: Yes - CONSTITUTIONAL General Appearance: appears well, alert, no apparent distress, obese - EYES Eyes: PERRL/EOMI, pink conjunctivae - HEAD, EARS, NOSE, MOUTH & THROAT HENMT: normocephalic/atraumatic, moist mucous membranes, normal ENT inspection - NECK Neck: non-tender, full range of motion, supple, normal inspection - RESPIRATORY Respiratory: chest non-tender, lungs clear, normal breath sounds - CARDIOVASCULAR Cardiovascular: normal peripheral pulses, tachycardia (107) - GASTROINTESTINAL (ABDOMEN) Abdominal Exam: normal bowel sounds, non tender, soft - LYMPHATIC Lymphatic: no adenopathy - MUSCULOSKELETAL Back Exam: normal inspection, no CVA tenderness, no vertebral tenderness Extremity: normal range of motion, non-tender, normal gait, normal inspection, no pedal edema, no calf tenderness, normal capillary refill, pelvis stable - SKIN Integumentary: normal color, normal turgor, warm/dry - NEUROLOGIC Neurologic: grossly normal, no motor/sensory deficits - PSYCHIATRIC Psych/Mental Status: normal mood/affect, normal thought content, normal thought process, oriented x 3 Progress - PLAN OF CARE/RESULTS Progress/Plan/Lab Results: Vital Signs - 8 hr 02/23/18 14:10 Temperature 97.8 F Pulse Rate 107 H Respiratory Rate 18 Blood Pressure 139/95 O2 Sat by Pulse Oximetry 100 Laboratory Results - last 24 hr 02/23/18 02/23/18 02/23/18 15:52 15:55 15:55 WBC 8.81 RBC 4.94 Hgb 13.2 L Hct 43.1 MCV 87.2 MCH 26.7 L MCHC 30.6 L RDW Std Deviation 18.1 H Plt Count 254 MPV 9.9 Immature Gran % (Auto) 0.0 Neut % (Auto) 74.5 Lymph % (Auto) 17.7 L Cooke % (Auto) 6.1 Eos % (Auto) 0.9 Baso % (Auto) 0.8 Immature Gran # (Auto) 0.00 Neut # (Auto) 6.56 H Lymph # (Auto) 1.56 Cooke # (Auto) 0.54 Eos # (Auto) 0.08 Baso # (Auto) 0.07 PT INR PTT (Actin FS) Sodium 133 L Potassium 3.3 L Chloride 89 L Carbon Dioxide 29 Anion Gap 15 BUN 23 H Creatinine 1.4 H Estimated GFR/1.73 m2 55 BUN/Creatinine Ratio 16 Glucose 106 H Calculated Osmolality 270 Calcium 9.5 Magnesium 2.2 Total Bilirubin 3.27 H AST 43 H ALT 35 Alkaline Phosphatase 107 Creatine Kinase 340 H Creatine Kinase Index 1.9 CK-MB (CK-2) 6.48 H Troponin T [id number] Pept Total Protein 7.0 Albumin 4.0 Globulin 3.0 Albumin/Globulin Ratio 1.3 Urine Opiates Screen NONE DETECTED Ur Oxycodone Screen NONE DETECTED Ur Methadone, Qual NONE DETECTED Ur Barbiturates Screen NONE DETECTED Ur Phencyclidine Scrn NONE DETECTED Ur Amphetamines Screen NONE DETECTED U Benzodiazepines Scrn NONE DETECTED Urine Cocaine Screen NONE DETECTED U Cannabinoids Screen NONE DETECTED 02/23/18 02/23/18 02/23/18 15:55 15:55 15:55 WBC RBC Hgb Hct MCV MCH MCHC RDW Std Deviation Plt Count MPV Immature Gran % (Auto) Neut % (Auto) Lymph % (Auto) Cooke % (Auto) Eos % (Auto) Baso % (Auto) Immature Gran # (Auto) Neut # (Auto) Lymph # (Auto) Cooke # (Auto) Eos # (Auto) Baso # (Auto) PT 16.9 H INR 1.27 PTT (Actin FS) 34.0 Sodium Potassium Chloride Carbon Dioxide Anion Gap BUN Creatinine Estimated GFR/1.73 m2 BUN/Creatinine Ratio Glucose Calculated Osmolality Calcium Magnesium Total Bilirubin AST ALT Alkaline Phosphatase Creatine Kinase Creatine Kinase Index CK-MB (CK-2) Troponin T 0.048 [id number] Pept 6443 H Total Protein Albumin Globulin Albumin/Globulin Ratio Urine Opiates Screen Ur Oxycodone Screen Ur Methadone, Qual Ur Barbiturates Screen Ur Phencyclidine Scrn Ur Amphetamines Screen U Benzodiazepines Scrn Urine Cocaine Screen U Cannabinoids Screen Orders Category Date Time Status Cardiac Monitoring DIRECTED Care 02/23/18 14:14 Active I&O [Intake and Output-Strict] ORDERED Care 02/23/18 15:32 Active Oxygen Therapy- ED Nursing DIRECTED Care 02/23/18 14:14 Active Saline Loc NOW Care 02/23/18 14:14 Active CHEST-2 VIEWS [RAD] Stat Exams 02/23/18 14:14 Completed CBC WITH ELECTRONIC DIFF [HEME] Stat Lab 02/23/18 15:55 Completed CK PROFILE [SP CHEM] Stat Lab 02/23/18 15:55 Completed COMPREHENSIVE METABOLIC PANEL [CHEM] Stat Lab 02/23/18 15:55 Completed MAGNESIUM [CHEM] Stat Lab 02/23/18 15:55 Completed PRO B-NATRIURETIC PEPTIDE Stat Lab 02/23/18 15:55 Completed PROTIME WITH INR [COAG] Stat Lab 02/23/18 15:55 Completed PTT [COAG] Stat Lab 02/23/18 15:55 Completed TROPONIN T Stat Lab 02/23/18 15:55 Completed URINE DRUG SCREEN Stat Lab 02/23/18 15:52 Completed Bumetanide [Bumex] Med 02/23/18 15:31 Discontinued 1 mg IV NOW ONE Metolazone [Zaroxolyn] Med 02/23/18 15:32 Discontinued 5 mg PO NOW ONE CP/SOB/Palp >45 yrs of Age Stat Oth 02/23/18 14:13 Ordered EKG [EKG] Stat Ther 02/23/18 14:14 Draft diagnostics confirm marked elevation in BNP and bili since d/c. discussed w/ Willa who agreed to admit. Result Diagrams: 02/23/18 15:55 02/23/18 15:55 - REASSESSMENT Reassessment #1 Time Reassessed: 16:38 ( at bedside) Status: unchanged - EKG 1 Time of EKG reading by physician:: 14:09 EKG Read and Signed by:: Oscar Stewart EKG Interpretation (*Must complete 3 of following elements*): Abnormal Rate: 108 Rhythm: sinus tachycardia with occ pvc Mcgraws: left (axis deviation) QRS: other (left atrial enlargement) MI Interval: normal Comments: nonspecific T wave abnormality - XRAY 1 XRAY: Bilateral XRAY Study: Chest (EXAM: CHEST-2 VIEWS 02/23/2018 HISTORY: chest pain TECHNIQUE: PA and lateral chest COMMENT: There is marked cardiomegaly with left ventricular enlargement. There is increased interstitial markings with Bryan B lines. Compared to 02/14/2018 the lungs are better expanded and the radiograph is better exposed. IMPRESSION: Cardiomegaly and mild pulmonary edema. Electronically signed by Temo Rodriguez 02/23/2018 2:52 PM 02/23/18 1452 Interpreting Physician: Temo Rodriguez MD Dictated Date/Time: 1451 cc: Oscar Stewart MD; Adalberto Ng MD) Departure - Departure Date of Disposition Decision: 02/23/18 Time of Disposition Decision: 18:39 DIAGNOSIS: Acute exacerbation of CHF (congestive heart failure) Disposition: ADMITTED INPATIENT 09 Certified Medical Emergency: Emergent Condition: Stable Referrals and Follow-Ups: Adalberto Ng MD [Primary Care Provider] - - Critical Care Note This patient required my direct & personal management of CC.: No Attestation - Physician/ ELEONORA Attestation Patient care was provided by Advanced Practice Provider:: No The physician spent face to face time with patient:: Yes Advanced Practice Provider documentation review:: Supervising physician onsite and consulted in the evaluation and care of this patient. The physician did have a face to face encounter with the patient. This chart was documented by the indicated scribe, (Yoly Vegas Scribe) and accurately reflects the services I performed and decisions made by me, Oscar Stewart MD, as attested by the provider's signature.
[2018-02-23] MEDS ORDERED: POTASSIUM CHLORIDE 20 MEQ in NS 100 ML IV ONE (20:41)
[2018-02-23] MEDS ORDERED: MORPHINE IV ONE (20:53)
[2018-02-23] MEDS ORDERED: POTASSIUM CHLORIDE 20% LIQUID PO ONE (20:53)
[2018-02-23] MEDS ORDERED: TYLENOL PO PRN (22:09)
[2018-02-23] MEDS ORDERED: ZOFRAN IV PRN (22:09)
--- NOTE | 2018-02-23 22:10 | HISTORY AND PHYSICAL ---
PRIMARY CARE PHYSICIAN: Dr. Adalberto Ng. REASON FOR ADMISSION: One-day history of acute dyspnea. HISTORY OF PRESENT ILLNESS: Mr. Donald Nathan is a 47-year-old man well known to our service with multiple admissions. He had signed about against medical advice just less than 2 weeks ago. He comes in today complaining of acute on chronic shortness of breath. He says it started in the early hours of this morning. He denies any antecedent palpitations or chest pain prior to passing out. He denies any antecedent PND. He denies any polyuria, polydipsia , or polyphagia. REVIEW OF SYSTEMS: No positive findings. ALLERGIES: Penicillin, atropine, Toradol, Levaquin, latex, Ativan (but he can take Xanax). HOME MEDICATIONS: Will be reconciled, but last time he was here, he was on: 1. Albuterol. 2. Xanax. 3. Norvasc. 4. Aspirin. 5. Coreg. 6. Plavix. 7. Pepcid. 8. Lasix. 9. Corona. 10.Cozaar. 11.Potassium chloride. 12.Crestor. PAST SURGICAL HISTORY: 1. Coronary artery stenting. 2. Implantation of AICD. SOCIAL HISTORY: He states that he has remained tobacco free. Denies any alcohol or illicit drug use recently. His UDS, by the way, is negative. FAMILY HISTORY: Notable for heart disease and colitis in first-degree relatives. LAB WORK: White count 8000, hemoglobin and hematocrit 13 and 43, platelets 254 with normal differential. Sodium is 133, potassium 3.3, BUN 23, creatinine 1.4, glucose 106. Total bilirubin is 3.27 (which could be related to passive congestion from CHF). AST 43, ALT 35 , CK 340, index 1.9. Troponin 0.048, pro-BNP 6000. PT is 17,000, INR 1.2, PTT 34. UDS negative. Chest film shows cardiomegaly with mild pulmonary congestion. PAST MEDICAL HISTORY: 1. COPD. 2. Hyperlipidemia. 3. Hypertensive heart disease. 4. Chronic systolic heart failure with EF of 20%. PHYSICAL EXAMINATION: GENERAL: Middle-aged man who is in distress from what he says is diffuse cramps all over, and he attributes this to hypokalemia from the diuretics. He also complains of shortness of breath. He is not in acute respiratory distress. He is alert and oriented x3. Normal mood and affect. HEENT: Head is normocephalic, atraumatic. Eyes PERRL, EOMI. He is anicteric but pale. ENT: Oropharynx exam is grossly normal with any exudates or erythema. No central cyanosis noted. NECK: He has mild JVD. No bruits or thyromegaly. CHEST: He has a few bibasilar crepitations. Decreased air entry in both meredith. He also has inspiratory and expiratory wheezes diffusely. CARDIOVASCULAR: First and second heart sounds heard. No gallops, murmurs or rubs. No S3 heard. Rhythm is regular. ABDOMEN: Full and soft. Moves with respiration. No focal areas of tenderness. No masses or organomegaly. Bowel sounds are normal. No bruit heard. EXTREMITIES: The patient has 2+ pedal edema up to his knees bilaterally. Distal pulses good volume, 2+. Rhythm regular. Symmetrical pulses. No clubbing or peripheral cyanosis. NEUROLOGIC: No gross focal deficits. No asterixis noted. SKIN: Intact with no breakdown, lesions or erythema. . MUSCULOSKELETAL: Grossly normal. ASSESSMENT: 1. Acute on chronic systolic heart failure. 2. Symptomatic hypokalemia. 3. Chronic obstructive pulmonary disease, stable. 4. Coronary artery disease. 5. Hypertensive heart disease 6. Hyperlipidemia. 7. Chronic pain syndrome. PLAN: 1. The patient will be started on IV Bumex for a change. In addition to this, Zaroxolyn will be added, and we will consider adding on Aldactone so as to optimize diuresis in this patient. 2. Optimize beta blockers and ARBs. If needed and the patient is truly compliant to his medications, which personally I doubt, the patient may need to be on nitrates and hydralazine. The patient will also be on nebulizer treatments to manage COPD in the background. 3. 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 If the patient achieves optimal diuresis and is still short of breath, may consider steroids. 4. Further management will depend on patient's official medication reconciliation list. We will also do a daily BMP and chest film in the morning. Check magnesium also, in view of the patient's hypokalemia, and correct if low. Serial cardiac enzymes will be done also. cc: MD Adablerto Rao MD [facility]
[2018-02-24] MEDS: BUMEX IV SCH ×3 (00:13→23:57)
[2018-02-24] MEDS: POTASSIUM CHLORIDE 20% LIQUID PO SCH ×2 (00:13→12:31)
[2018-02-24] MEDS: NORCO-10 PO SCH ×4 (00:13→21:45)
[2018-02-24] MEDS: XANAX PO PRN ×3 (02:33→19:29)
[2018-02-24] MEDS: DUONEB (A & A) INH SCH ×4 (03:18→19:43)
[2018-02-24] MEDS ORDERED: PNEUMOVAX 23 IM ONE (04:51)
[2018-02-24 07:00] LABS: BASO# 0.06 X1000 (0.0-0.2); BASO% 0.6 % (0.0-0.8); HEMATOCRIT 45.4 % (42.0-52.0); HEMOGLOBIN 13.8 g/dL (14.0-18.0); LYMPH# 1.52 X1000 (1.2-3.4); LYMPH% 15.3 % (20.5-51.1); MCH 26.8 PG (27-31); MCHC 30.4 g/dL (33-37); MCV 88.3 FL (81-99); MONO# 0.68 X1000 (0.11-0.59); MONO% 6.9 % (1.7-9.3); MPV 9.8 FL (7.4-10.4); NEUT# 7.56 X1000 (1.4-6.5); NEUT% 76.2 % (42.2-75.2); PLT 253 X1000 (130-400); RBC 5.14 XMIL (4.7-6.1); RDW 18.2 % (11.5-14.5); WBC 9.92 X1000 (4.8-10.8)
[2018-02-24 07:33] LABS: CALCIUM 9.7 mg/dL (8.8-10.2); CREATININE 1.3 mg/dL (0.7-1.2); POTASSIUM 3.7 mmol/L (3.5-5.1)
[2018-02-24 07:54] LABS: BANDS 2 % (0-1); LYMPHS 20 % (21-51); MONO 4 % (1-9); SEGS 74 % (42-75)
[2018-02-24 07:55] LABS: ANISOCYTOSIS 1+; HYPOCHROM 2+
[2018-02-24] MEDS ORDERED: ZAROXOLYN PO SCH (09:00)
[2018-02-24] MEDS: ALDACTONE PO SCH (12:32)
[2018-02-25] MEDS: DUONEB (A & A) INH SCH ×4 (03:20→22:10)
[2018-02-25] MEDS ORDERED: KLOR-CON PO ONE (05:34)
[2018-02-25] MEDS ORDERED: MAG-OX PO ONE (05:34)
[2018-02-25] MEDS: XANAX PO PRN ×2 (07:14→13:15)
[2018-02-25] MEDS: POTASSIUM CHLORIDE 20% LIQUID PO SCH (09:04)
[2018-02-25] MEDS: NORCO-10 PO SCH ×3 (09:05→20:50)
[2018-02-25] MEDS: ALDACTONE PO SCH (09:05)
[2018-02-25] MEDS: BUMEX IV SCH ×2 (09:27→11:03)
[2018-02-25] MEDS: KLOR-CON PO SCH (09:28)
[2018-02-25] MEDS: SOLU-MEDROL IV SCH (11:03)
[2018-02-25 11:10] LABS: CALCIUM 9.1 mg/dL (8.8-10.2); CREATININE 1.4 mg/dL (0.7-1.2); POTASSIUM 3.5 mmol/L (3.5-5.1)
--- NOTE | 2018-02-25 13:53 | Diag Imaging Result Doc PS360 ---
EXAM: CHEST-PORTABLE 02/25/2018 HISTORY: chf TECHNIQUE: AP portable at 1346 COMMENT: There is cardiomegaly with left ventricular enlargement. The interstitial pulmonary edema which was present on 02/23/2018 has improved slightly. Otherwise considering differences in technique there has been no significant change. IMPRESSION: Cardiomegaly and mild pulmonary edema. Electronically signed by Temo Rodriguez 02/25/2018 1:50 PM
--- NOTE | 2018-02-25 18:54 | PROGRESS NOTE ---
DATE: 02/25/2018 INTERVAL HISTORY: The patient complains of ongoing dyspnea and pain. However, appears very comfortable at rest. The patient noted to have marked forced expiratory wheeze when I walked into the room, however, when he is distracted this disappears. The patient with repeated requests for pain medicine. 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 He appears to be getting small amounts of narcotics, primarily hydrocodone acetaminophen or hydrocodone ibuprofen from a number of different providers, but does not appear to be on regular narcotics at home from anyone. Xanax appears to have been filled last at the beginning of last December. REVIEW OF SYSTEMS: Twelve point review of systems negative except as per interval history. LABORATORY: Sodium 137, potassium 3.5, bicarb 33, BUN 24, creatinine 1.4, glucose 159, and BNP 392. UDS negative. Chest x-ray with improved mild pulmonary edema. VITALS: T-max 98.9 degrees, pulse 69, respirations 16, blood pressure 134/89, and O2 saturation 98% on room air. PHYSICAL EXAMINATION: General: Initially, labored breathing but disappeared when patient is distracted. Vitals: As above. HEENT: Normocephalic, atraumatic. Moist mucous membranes. No cervical adenopathy. Cardiovascular: Regular rate and rhythm. No murmurs, rubs, or gallops noted. Pulmonary: Initially marked forced breathing. When patient distracted or forced to take slow deep breaths, this disappears, but he does continue to have a mild expiratory wheeze. Good air entry. No rales or rhonchi noted. Abdomen: Soft, nontender, and nondistended. Bowel sounds positive. Extremities: Peripheral pulses intact. No clubbing, cyanosis, or edema. Neurologic: Cranial nerves 2-12 grossly intact. No focal motor or sensory deficits. Psychiatric: Normal mood, mild affect. Awake, alert, and oriented x3. Skin: No rashes or lesions identified. ASSESSMENT AND PLAN: 1. Acute on chronic systolic CHF with last EF 20 and some very slight edema still noted on chest x-ray, but essentially resolved at this point. No crackles on exam and saturating well on room air. Diuretic decreased to daily and can likely be transitioned to p.o. tomorrow. 2. Mild COPD exacerbation. The patient does appear to have slight expiratory wheezing even after he has made to stop doing forced expiration. We will continue nebs and give a little bit of IV steroid. Given normal sats, can likely be transitioned to p.o. steroids tomorrow if his wheezing is improving. 3. Hypokalemia improved with repletion. Monitor. 4. Hypertension reasonable control on current regimen. Continue to monitor. 5. Hyperlipidemia. Will restart home Crestor. 6. Medical noncompliance. The importance of compliance was emphasized to the patient. 7. Chronic kidney disease 3 overall largely stable creatinine during this admission. Decreasing diuretics as above. Continue to monitor. 8. Chronic pain. The patient is with small amounts of opioid pen, and the prescriptions from multiple different physicians, but does not appear to be on chronic opioid or benzodiazepine therapy. We did not plan on continuing these on discharge. 9. Deep vein thrombosis prophylaxis. SCD's.
[2018-02-26] MEDS: DUONEB (A & A) INH SCH ×3 (03:25→16:08)
[2018-02-26] MEDS: NORCO-10 PO SCH ×5 (07:45→16:29)
[2018-02-26] MEDS: XANAX PO PRN ×2 (07:45→12:29)
--- NOTE | 2018-02-26 08:41 | PROGRESS NOTE ---
DATE: 02/24/2018 SUBJECTIVE: Patient notes he still does not feel well. Still having increased shortness of breath, dyspnea on exertion does feel maybe a little bit better than yesterday. PHYSICAL: Is afebrile, heart rate stable, respiratory 20.General: Patient is awake, alert, he is in no respiratory distress although he is sitting up inside the bed. He is alert, oriented. HEENT: Normocephalic atraumatic. Neck: Supple. No JVD. CV: Regular rate. No murmurs. Chest: Decreased breath sounds bilaterally, no current wheezing. He does have some crackles in bases. Abdomen: Soft, nondistended, nontender. Extremities: 2+ edema bilateral lower extremities but patient notes is better than yesterday. Does move all extremities well. Neuro: No focal neurological changes. He is awake, alert, oriented x3. ASSESSMENT: 1. Acute on chronic systolic congestive heart failure with exacerbation . 2. Symptomatic hypokalemia currently resolved potassium back to normal. 3. Chronic renal failure creatinine 1.3. 4. [*]. 5. Hypertension. 6. Hyperlipidemia. PLAN: Will continue patient the hospital, continue IV Bumex and Zaroxolyn, will continue to follow, further orders as needed. cc: Adalberto Ng MD
[2018-02-26] MEDS: ALDACTONE PO SCH (11:47)
[2018-02-26] MEDS: KLOR-CON PO SCH (11:47)
[2018-02-26] MEDS: BUMEX IV SCH (11:47)
[2018-02-26] MEDS: POTASSIUM CHLORIDE 20% LIQUID PO SCH (11:50)
[2018-02-26] MEDS: SOLU-MEDROL IV SCH (11:57)
--- NOTE | 2018-02-26 13:46 | PROGRESS NOTE ---
DATE: 02/26/2018 SUBJECTIVE: Patient is sitting on the side of the bed. He is dyspneic. OBJECTIVE: Vital signs: Temperature 97.7 degrees, pulse 114, respiratory rate is 18, blood pressure 136/95, oxygen saturation is 98%. HEENT: Atraumatic, normocephalic. Neck: Has [*]jugular venous distention. Cardiovascular: S1, S2 with possible S3. Respiratory: No rales or rhonchi noted. Abdomen: Soft, obese, nontender. No masses felt. Extremities: Have trace edema in the lower extremities. Central nervous system: No obvious focal deficits noted. LABORATORY DATA: Blood sugar is 198. ASSESSMENT AND PLAN: 1. Acute systolic congestive heart failure. Monitor I's and O's as well as daily weights. 2. Chronic obstructive pulmonary disease. Continue nebulized bronchodilators as well as steroids. 3. Hypertension, controlled. Continue to monitor. 4. Hyperlipidemia. Continue Crestor. 5. Chronic kidney disease. Avoid nephrotoxic agents. Continue to follow up on patient's renal function. 6. Deep vein thrombosis prophylaxis. SCDs. cc: Angelo León MD
[2018-02-26 14:41] VITALS: BP 156/83
== END 2018-02-26 16:42 | disposition left against medical advice (07) | DRG 291 ==
LOC: ED 13:57 → SUATTDRO 21:45 → 4N 21:45
PROVIDERS: ATTEND Internal Medicine
CPT/HCPCS: 71010; 71020; 71045; 71046; 80048; 80053; 80101; 80301; 80307; 80324; 80345; 80346; 80353; 80358; 80361; 80365; 82550; 82553; 82948; 83735; 83880; 83992; 84132; 84484; 85025; 85610; 85730; 93005; 94640; 94761; 96374; 96375; 99285; A9270; G0431; G0434; G0479; G0480; J2270; J2920; J3480; S0171; XXXXX

== ENCOUNTER 2018-03-10 01:02 | Inpatient (IN) ==
[2018-03-10] MEDS ORDERED: LASIX IV ONE (02:41)
[2018-03-10] MEDS ORDERED: NORCO-7.5 PO ONE (02:52)
[2018-03-10 03:04] LABS: BASO# 0.05 X1000 (0.0-0.2); BASO% 0.5 % (0.0-0.8); EOS# 0.16 X1000 (0.0-0.7); EOS% 1.5 % (0.0-10.0); HEMATOCRIT 38.9 % (42.0-52.0); HEMOGLOBIN 11.8 g/dL (14.0-18.0); IMM GRAN# 0.02 X1000 (0.0-0.04); IMM GRAN% 0.2 % (0.0-0.5); LYMPH# 1.68 X1000 (1.2-3.4); LYMPH% 16.2 % (20.5-51.1); MCHC 30.3 g/dL (33-37); MONO# 0.52 X1000 (0.11-0.59); MPV 9.6 FL (7.4-10.4); NEUT# 7.97 X1000 (1.4-6.5); NEUT% 76.6 % (42.2-75.2); PLT 204 X1000 (130-400); RBC 4.37 XMIL (4.7-6.1); RDW 18.4 % (11.5-14.5)
[2018-03-10 03:29] LABS: AGAP 15; BUN 12 mg/dL (8-22); CALCIUM 8.1 mg/dL (8.8-10.2); CHLORIDE 93 mmol/L (98-107); COSMO 271; CREATININE 1.1 mg/dL (0.7-1.2); ESTIMATED GFR > 60; GLUCOSE 181 mg/dL (70-104); POTASSIUM 3.4 mmol/L (3.5-5.1); SODIUM 133 mmol/L (136-145); TCO2 25 mmol/L (25-35)
--- NOTE | 2018-03-10 04:39 | PROVIDER DOCUMENTATION ---
HPI-Cardiac General - General Chief Complaint: Edema Stated Complaint: HEART FAILURE Time Seen by Provider: 03/10/18 02:20 Source: patient Allergies/Adverse Reactions: Patient Allergies Allergy/AdvReac Type Severity Reaction Status Date / Time Penicillins Allergy Intermediate Unknown Verified 02/23/18 14:56 amoxicillin Allergy Unknown Unknown Verified 02/23/18 14:56 atropine Allergy ANAPHYLAXIS Verified 02/23/18 14:56 ketorolac [From Toradol] Allergy RASH Verified 02/23/18 14:56 Latex, Natural Rubber Allergy RASH Verified 02/23/18 14:56 levofloxacin [From Levaquin] Allergy ITCHING Verified 02/23/18 14:56 lorazepam [From Ativan] AdvReac Unknown Verified 02/23/18 14:56 Home Medications: Home Medication List Medication Instructions Recorded Confirmed Last Taken Type Amlodipine [Norvasc] 2.5 mg PO BID #60 tablet 10/07/16 02/23/18 02/23/18 Rx Aspirin EC 1 each PO QHS #90 tablet 10/07/16 02/23/18 02/23/18 Rx Furosemide 1 tab PO BID #60 tablet 10/07/16 02/23/18 02/23/18 Rx Losartan Potassium [Cozaar] 100 mg PO DAILY #30 tablet 10/07/16 02/23/18 Rx Clopidogrel Bisulfate [Plavix] 75 mg PO DAILY #90 tab 07/03/17 02/23/18 Rx Albuterol 2.5MG/Ipratrop 0.5MG 3 ml INH RTQ6H #120 neb 09/07/17 02/23/18 Rx [Duoneb (A & A)] Alprazolam [Xanax] 2 mg PO BID PRN #42 tab 09/07/17 02/23/18 02/23/18 Rx Albuterol Sulfate [Proair Hfa] 2 puff IN Q4H PRN PRN 10/05/17 02/23/18 02/23/18 History Famotidine 40 mg PO DAILY 10/05/17 02/23/18 02/23/18 History ROSUVAstatin [Crestor] 10 mg PO DAILY 10/05/17 02/23/18 02/23/18 History Carvedilol [Coreg] 3.25 mg PO BID 01/08/18 02/23/18 02/23/18 History Hydrocodone Bit/Acetaminophen 10 mg PO TID 01/08/18 02/23/18 02/23/18 History [Hydrocodon-Acetaminophn 10-325] Potassium Chloride [K-Tab ER] 60 meq PO BID 01/08/18 02/23/18 02/23/18 History Ibuprofen/Hydrocodone [Vicoprofen 1 ea PO Q4H PRN PRN #10 tab 02/04/18 02/23/18 02/23/18 Rx 200/7.5 mg] - History of Present Illness-Cardiac Nature of Presenting Problem: 47 yo [employer] vet with severe heart failure, pacemaker annd multiple admissions for pul edema. He awoke this am withsevere orthopnea prompting ER visit. He reports that "Lasix no longer works" and was changed to Bumex recently. He states that his EF is 12% which I cannot document. Review of Systems - Adult - REVIEW OF SYSTEMS - ADULT Constitutional: reports: weight gain, other (chronic pain for which he takes [place] 10 mg qid.) Eyes: reports: no symptoms reported Ears, Nose, Mouth & Throat: reports: no symptoms reported Cardiovascular: reports: see HPI, edema, orthopnea, PND Respiratory: reports: chronic cough, shortness of breath, wheezing Gastrointestinal: reports: no symptoms reported Genitourinary: reports: no symptoms reported Musculoskeletal: reports: no symptoms reported Integumentary: reports: no symptoms reported Psychiatric: reports: alcohol/drug dependence, depression Past History - Adult - PAST MEDICAL HISTORY-ADULT Review of Records: reports: Old Records Reviewed, Nursing Assessment Review, Medications Reviewed Major Childhood Illnesses: reports: denies history Cardiovascular: reports: cardiac disease, angina, CAD, CHF, HTN, hyperlipidemia , [place], pacemaker, other (cardiomyopathy/ 20% ejection fraction) Respiratory: reports: COPD Gastrointestinal: reports: denies history Obstetrical/Gynecological: reports: denies history Genitourinary: reports: denies history Musculoskeletal: reports: chronic pain Neurological: reports: denies history Psychiatric: reports: anxiety, ptsd Endocrine/Immune: reports: denies history Other Conditions: reports: denies history - PRIOR SURGERIES/PROCEDURES Surgical/Procedure History: reports: reviewed, not pertinent, cardiac stent, pacemaker - IMMUNIZATION STATUS Childhood Immunizations: See Nurse Assessment Flu Vaccine: See Nurse Assessment - FAMILY HISTORY Family History: CAD under 55yo Physical Exam-General - PHYSICAL EXAM-ADULT Initial Vital Signs Reviewed: Yes - CONSTITUTIONAL General Appearance: alert, mild distress, anxious - EYES Eyes: PERRL/EOMI, pink conjunctivae - HEAD, EARS, NOSE, MOUTH & THROAT HENMT: normocephalic/atraumatic, moist mucous membranes - NECK Neck: non-tender, full range of motion, supple - RESPIRATORY Respiratory: chest non-tender, crackles, rales - CARDIOVASCULAR Cardiovascular: regular rate, rhythm, systolic murmur. negative: no edema, no JVD - GASTROINTESTINAL (ABDOMEN) Abdominal Exam: other (mild ascites) - MUSCULOSKELETAL Back Exam: normal inspection Extremity: swelling - SKIN Integumentary: normal color, swelling - NEUROLOGIC Neurologic: grossly normal, other (demanding narcotics for generalized pain) Progress - PLAN OF CARE/RESULTS Progress/Plan/Lab Results: Vital Signs - 8 hr 03/10/18 01:12 Temperature 99.2 F Pulse Rate 109 H Respiratory Rate 20 Blood Pressure 169/122 O2 Sat by Pulse Oximetry 96 Laboratory Results - last 24 hr 03/10/18 03/10/18 03/10/18 02:43 02:43 02:43 WBC 10.40 RBC 4.37 L Hgb 11.8 L Hct 38.9 L MCV 89.0 MCH 27.0 MCHC 30.3 L RDW Std Deviation 18.4 H Plt Count 204 MPV 9.6 Immature Gran % (Auto) 0.2 Neut % (Auto) 76.6 H Lymph % (Auto) 16.2 L [place] % (Auto) 5.0 Eos % (Auto) 1.5 Baso % (Auto) 0.5 Immature Gran # (Auto) 0.02 Neut # (Auto) 7.97 H Lymph # (Auto) 1.68 [place] # (Auto) 0.52 Eos # (Auto) 0.16 Baso # (Auto) 0.05 Sodium 133 L Potassium 3.4 L Chloride 93 L Carbon Dioxide 25 Anion Gap 15 BUN 12 Creatinine 1.1 Estimated GFR/1.73 m2 > 60 BUN/Creatinine Ratio 11 Glucose 181 H Calculated Osmolality 271 Calcium 8.1 L Troponin T Kkz-O-Hlymzomtrlc Pept 5345 H 03/10/18 02:43 WBC RBC Hgb Hct MCV MCH MCHC RDW Std Deviation Plt Count MPV Immature Gran % (Auto) Neut % (Auto) Lymph % (Auto) [place] % (Auto) Eos % (Auto) Baso % (Auto) Immature Gran # (Auto) Neut # (Auto) Lymph # (Auto) [place] # (Auto) Eos # (Auto) Baso # (Auto) Sodium Potassium Chloride Carbon Dioxide Anion Gap BUN Creatinine Estimated GFR/1.73 m2 BUN/Creatinine Ratio Glucose Calculated Osmolality Calcium Troponin T 0.068 Bky-I-Evrqbramnnt Pept Orders Category Date Time Status [facility]. [facility] Communication Order DIRECTED Care 03/10/18 05:27 Active CHEST-PORTABLE [RAD] Stat Exams 03/10/18 02:39 Taken BMP [BASIC METABOLIC PANEL] [CHEM] Stat Lab 03/10/18 02:43 Completed BNP [PRO B-NATRIURETIC PEPTIDE] Stat Lab 03/10/18 02:43 Completed CBC WITH ELECTRONIC DIFF [HEME] Stat Lab 03/10/18 02:43 Completed TROPONIN T Stat Lab 03/10/18 02:43 Completed Albuterol 2.5MG/Ipratrop 0.5MG [Duoneb (A & A)] Med 03/10/18 10:00 Ordered 3 ml INH RTQ6H Albuterol Sulfate Inhaler [Ventolin Hfa] Med 03/10/18 05:47 Ordered 2 puff INH Q4H PRN PRN Alprazolam [Xanax] Med 03/10/18 05:47 Ordered 2 mg PO BID PRN Amlodipine [Norvasc] Med 03/10/18 09:00 Ordered 2.5 mg PO BID Aspirin EC Med 03/10/18 21:00 Ordered DOSE mg PO QHS Bumetanide [Bumex] Med 03/10/18 09:00 Ordered 2 mg IV Q12H Carvedilol [Coreg] Med 03/10/18 09:00 Ordered 3.25 mg PO BID Clopidogrel [Plavix] Med 03/10/18 09:00 Ordered 75 mg PO DAILY Famotidine [Famotidine] Med 03/10/18 09:00 Ordered 40 mg PO DAILY Furosemide [Lasix] Med 03/10/18 02:41 Discontinued 80 mg IV NOW ONE Hydrocodone/APAP 7.5 mg/325 mg [[place]erson-7.5] Med 03/10/18 02:52 Discontinued 1 each PO NOW ONE Hydrocodone/APAP 7.5 mg/325 mg [[place]-7.5] Med 03/10/18 05:49 Ordered See Dose Instructions PO Q6H PRN PRN Losartan Potassium [Cozaar] Med 03/10/18 09:00 Ordered 100 mg PO DAILY Metolazone [Zaroxolyn] Med 03/10/18 09:00 Ordered 2.5 mg PO DAILY Metolazone [Zaroxolyn] Med 03/10/18 05:47 Once 5 mg PO NOW ONE ROSUVAstatin [Crestor] Med 03/10/18 09:00 Ordered 10 mg PO DAILY EKG [EKG] Stat Ther 03/10/18 04:47 Ordered Transfer/Admit Order [TRANSFER] Routine Transfer 03/10/18 05:51 Ordered Result Diagrams: 03/10/18 02:43 03/10/18 02:43 - XRAY 1 XRAY: Bilateral XRAY Study: Chest (cardiomegaly, pul edema, Pacemaker) - CONSULTS/PCP/HOSPITALIST Notification #1 *Consult/PCP/Hospitalist*: Dr Thomas Time Discussed: 05:15 Consult Disposition: Admit Departure - Departure Date of Disposition Decision: 03/10/18 Time of Disposition Decision: 04:59 DIAGNOSIS: CHF (congestive heart failure), NYHA class IV Disposition: ADMITTED INPATIENT 09 Certified Medical Emergency: Emergent Condition: Fair Referrals and Follow-Ups: Adalberto Ng MD [Primary Care Provider] - - Critical Care Note This patient required my direct & personal management of CC.: No Attestation - Physician/ ELEONORA Attestation The physician spent face to face time with patient:: Yes Advanced Practice Provider documentation review:: Supervising physician onsite and consulted in the evaluation and care of this patient. The physician did have a face to face encounter with the patient.
[2018-03-10] MEDS ORDERED: VENTOLIN HFA INH PRN (05:47)
[2018-03-10] MEDS ORDERED: ZAROXOLYN PO ONE (05:47)
[2018-03-10] MEDS ORDERED: KLOR-CON PO ONE ×2 (07:10→22:21)
[2018-03-10] MEDS ORDERED: ZOFRAN IV PRN (07:10)
[2018-03-10] MEDS: CRESTOR PO SCH ×2 (07:51→10:50)
[2018-03-10] MEDS: PLAVIX PO SCH ×2 (07:52→10:51)
[2018-03-10] MEDS: PEPCID PO SCH ×2 (07:52→10:51)
[2018-03-10] MEDS: COZAAR PO SCH ×2 (07:52→10:50)
[2018-03-10] MEDS: COREG PO SCH ×3 (07:53→21:57)
[2018-03-10] MEDS: NORVASC PO SCH ×3 (07:53→21:57)
[2018-03-10] MEDS: NORCO-7.5 PO PRN ×2 (07:54→14:38)
[2018-03-10] MEDS: XANAX PO PRN ×2 (07:56→12:51)
[2018-03-10] MEDS: ZAROXOLYN PO SCH (08:02)
[2018-03-10] MEDS: BUMEX IV SCH ×2 (08:11→22:33)
--- NOTE | 2018-03-10 08:45 | Diag Imaging Result Doc PS360 ---
EXAM: CHEST-PORTABLE INDICATION: chf TECHNIQUE: One view COMPARISON: 02/25/2018 FINDINGS: Central vasculature appears mildly prominent and there is minimal interstitial thickening suggesting mild pulmonary venous congestion and mild interstitial edema. There is fairly similar to the previous study. There is no discrete pleural fluid collection or pneumothorax. There is stable cardiomegaly and a stable implanted defibrillator. IMPRESSION: Suggestion of mild pulmonary venous congestion and interstitial edema. Electronically signed by Alphonse Mittal 03/10/2018 8:42 AM
--- NOTE | 2018-03-10 09:13 | HISTORY AND PHYSICAL ---
CHIEF COMPLAINT: Shortness of breath. HISTORY OF PRESENT ILLNESS: Mr. Nathan is a 47-year-old male well known to our service, has had multiple admissions. He has signed out against medical advice, I believe the last 2 admissions. Comes in today complaining of acute on chronic shortness of breath over the last 24-48 hours. States that he woke up in the early hours of this morning gasping for breath. He had both complaints of PND, orthopnea, lower extremity edema and dyspnea on exertion. He also had complaints of dry cough and pain associated with this. He denies polydipsia, polyuria, polyphagia or bowel or bladder complaint. He will be admitted for further evaluation and treatment. PAST MEDICAL HISTORY: 1. COPD. 2. Chronic systolic congestive heart failure with an ejection fraction of 20%. 3. Hyperlipidemia. 4. Hypertensive heart disease. 5. Chronic opioid dependence. PREVIOUS SURGICAL HISTORY: 1. Coronary artery stenting. 2. Implantation of an AICD. SOCIAL HISTORY: No tobacco, alcohol or illicit drugs. He is a retired . FAMILY HISTORY: Notable for heart disease and colitis in first degree relatives. ALLERGIES: Penicillin, Atropine, Toradol, Levaquin, latex and Ativan. HOME MEDICATIONS: A list of home medications has not been fully reconciled. I believe the patient takes Albuterol, Xanax, Norvasc, aspirin, Coreg, Plavix, Pepcid, Lasix, [place], Cozaar, potassium chloride and Crestor. Order was placed for nursing to reconcile home medications in the computer. REVIEW OF SYSTEMS: A 14 point review of systems conducted with the patient and pertinent positives listed above in the HPI. All other systems reviewed and found to be negative. PHYSICAL EXAMINATION: VITAL SIGNS: Temp 99.2 degrees, pulse 109, respirations 20, blood pressure 169/ 122. Oxygen saturation 96% on room air. GENERAL: 47-year-old male, pacing by the ER stretcher. He is alert and oriented x3. He is in no acute distress at this time. HEENT: Head is atraumatic, normocephalic. Pupils equal, round, reactive to light. Extraocular eye movements intact. Sclerae anicteric. Conjunctivae are not pale. Oral mucosa is moist. NECK: Supple. Mild JVD. No thyromegaly. Trachea is midline. No cervical lymphadenopathy. CARDIAC: S1, S2 appreciated. No murmurs, gallops, rubs. LUNGS: Crepitations noted throughout the bilateral air meredith. Decreased bilaterally. No rhonchi. No wheezes. Symmetric rise and fall of respirations. ABDOMEN: Soft, nondistended, nontender. Bowel sounds present in all 4 quadrants. Normoactive. No pulsatile masses or organomegaly. EXTREMITIES: 3+ pitting edema bilateral lower extremities. 2+ pedal pulses. No clubbing, cyanosis. NEUROLOGICAL: No focal deficits. Otherwise nonfocal examination. SKIN: Warm, dry and intact. No acute lesions or rash. MUSCULOSKELETAL: All 4 extremities within normal range of motion. Chest x-ray shows cardiomegaly and increased pulmonary vascular congestion. LABORATORY DATA: WBC 10.40, hemoglobin 11.8, hematocrit 38.9, platelet count 204 ,000. Sodium 133, potassium 3.4, chloride 93, carbon dioxide 25, BUN 12, creatinine 1.1. ProBNP 5, 345. ASSESSMENT AND PLAN: 1. Acute on chronic systolic heart failure. 2. Hypokalemia. 3. COPD without exacerbation. 4. Known coronary artery disease. 5. Hypertensive heart disease. 6. Hyperlipidemia. 7. Chronic pain syndrome. PLAN: Place patient on IV Bumex 2 mg q.12 hours. We will give a now dose of Zaroxolyn and continue daily. Consider sending patient home on long-acting oral medications such as Torsemide. We will treat patient's potassium and recheck laboratory data. Continue to give [place] 7.5 one to 2 tablets q.6 hours as needed for pain. Continue patient's Cozaar, Crestor and Norvasc as well as his carvedilol and Plavix. We will also continue the patient's Xanax. Further recommendations per patient's clinical course. Dictated by ILIR Geronimo for Hiwot Thomas MD cc: ILIR Geronimo MD Gregory S. Cheatham, MD Exam above was done by both me and POULTRY INSEMINATOR at bedside. As noted above, if compliance is an issue, Demadex daily maybe an option regarding diuresis. Also, consultation with billposter may also be useful along with optimization of BP meds. Low dose Metolazone 2.5mg along the aforementioned Demadex and low dose aldactone will be useful in optimal diuresis of this patient. I strong recommend weekly visits with PCP for 1st month then fortnightly visits till patient is optimally treated. MTDD
[2018-03-10] MEDS: DUONEB (A & A) INH SCH ×3 (10:41→21:00)
[2018-03-10] MEDS: NORCO-10 PO PRN (18:55)
--- NOTE | 2018-03-10 19:19 | PROGRESS NOTE ---
DATE: 03/10/2018 SUBJECTIVE: Today, Mr. Nathan refers to be doing fairly okay. According to him , he has been hurting all over his body, and he needs his pain medications to be optimized. OBJECTIVE: Vital signs: Blood pressure is 117/87, pulse is 90, respirations are 18, temperature is 97.9 degrees. General: Mr. Nathan is a 47-year-old male who is in bed, does not seem to be in any distress. HEENT: Mucosa is pink and moist. Anicteric. Acyanotic. Neck: Supple. Chest: Air entry is bilaterally reduced. There are crepitations posteriorly. Cardiovascular: Regular rate and rhythm. No murmurs, no rubs, no gallops. Abdomen: Soft, distended but nontender. Extremities: About 3+ pedal edema. Central nervous system: The patient is awake, alert, oriented. Musculoskeletal: There is a pacemaker generator pocket on the left anterior chest wall. LABORATORY DATA: WBC is 10.40, hemoglobin is 11.8, platelet count of 204,000. Chemistry is also reviewed. Sodium is 133, rest of chemistry is unremarkable. DIAGNOSTIC STUDIES: A chest x-ray this morning shows suggestion of mild pulmonary vascular congestion and interstitial edema. ASSESSMENT: 1. [id number] congestive heart failure. The patient does have an ejection fraction of 20% on recent echocardiogram. 2. Severe dilated cardiomyopathy secondary to both ischemic and nonischemic ( toxins -- cocaine use in the past). 3. Coronary artery disease status post stent in the diagonal artery, which was patent in the last left heart catheterization. 4. Chronic pain syndrome noted. 5. Hyponatremia with hypokalemia, likely due to diuretic side effects. We will continue to follow. In general, Mr. Nathan is still very congested with some wheezing and crackles in the lungs. We are going to continue with the current diuretic therapy. I have also optimized his pain medications. cc: Umair Blackman MD [facility]
[2018-03-10] MEDS: ASPIRIN EC PO SCH (21:57)
[2018-03-10] MEDS: MS CONTIN PO SCH (21:57)
[2018-03-11] MEDS: NORCO-10 PO PRN ×5 (02:28→20:01)
[2018-03-11] MEDS: DUONEB (A & A) INH SCH ×4 (03:37→22:00)
[2018-03-11] MEDS: XANAX PO PRN ×3 (06:45→16:51)
[2018-03-11 07:27] LABS: BASO# 0.05 X1000 (0.0-0.2); BASO% 0.5 % (0.0-0.8); EOS% 3.2 % (0.0-10.0); HEMATOCRIT 45.8 % (42.0-52.0); HEMOGLOBIN 13.7 g/dL (14.0-18.0); IMM GRAN# 0.02 X1000 (0.0-0.04); IMM GRAN% 0.2 % (0.0-0.5); LYMPH# 1.97 X1000 (1.2-3.4); MCH 26.8 PG (27-31); MCHC 29.9 g/dL (33-37); MCV 89.5 FL (81-99); MONO# 0.64 X1000 (0.11-0.59); MONO% 6.8 % (1.7-9.3); MPV 10.1 FL (7.4-10.4); NEUT# 6.42 X1000 (1.4-6.5); NEUT% 68.3 % (42.2-75.2); PLT 258 X1000 (130-400); RBC 5.12 XMIL (4.7-6.1); RDW 18.6 % (11.5-14.5)
[2018-03-11 07:45] LABS: CALCIUM 9.1 mg/dL (8.8-10.2); CREATININE 1.5 mg/dL (0.7-1.2); MAGNESIUM 2.1 mg/dL (1.5-2.7); POTASSIUM 3.2 mmol/L (3.5-5.1)
[2018-03-11] MEDS: MS CONTIN PO SCH ×2 (10:18→22:05)
[2018-03-11] MEDS: COZAAR PO SCH (10:18)
[2018-03-11] MEDS: PLAVIX PO SCH (10:18)
[2018-03-11] MEDS: NORVASC PO SCH ×2 (10:19→22:03)
[2018-03-11] MEDS: PEPCID PO SCH (10:19)
[2018-03-11] MEDS: ZAROXOLYN PO SCH (10:19)
[2018-03-11] MEDS: COREG PO SCH ×2 (10:20→22:03)
[2018-03-11] MEDS: CRESTOR PO SCH (10:20)
[2018-03-11] MEDS: KLOR-CON PO SCH ×2 (10:20→22:03)
[2018-03-11] MEDS: BUMEX IV SCH ×2 (10:21→22:04)
--- NOTE | 2018-03-11 17:33 | PROGRESS NOTE ---
DATE: 03/11/2018 SUBJECTIVE: This morning Mr. Nathan refers to be doing fairly okay. Shortness of breath is getting better. Still has a lot of lower extremity edema. OBJECTIVE: Vital signs: Blood pressure is 103/52, pulse is 86, respiration is 18, temperature is 98.2 degrees. The patient was saturating about 96% on room air. General: Mr. Nathan is a 47- year-old gentleman. He was in bed not seemingly distressed. HEENT: Mucosa is pink and moist. Anicteric. Acyanotic. Neck: Supple. There is positive JVD. Chest: Air entry was bilaterally reduced. There is still some crepitations posteriorly in both lung meredith. Cardiovascular: Regular rate and rhythm. No murmurs, no rubs, no gallops. [place] beat is at the 5th intercostal space made to the lateral clavicular line. GI: Abdomen is soft. It is nontender. Bowel sounds present. Extremities: About 3+ pedal edema. ASSEMBLY REPAIRER: Patient is awake, alert, and oriented. Musculoskeletal: There is a pacemaker generator pocket on the left anterior chest wall. LABORATORY DATA: WBCs 9.40, hemoglobin is 13.7, platelet count of 258,000. Sodium is 144, potassium is 3.2, chloride 99. Creatinine is 1.5. No imaging studies today. CURRENT MEDICATIONS: 1. Hutchinson 10 mg q.4 p.r.n. 2. Inhalers. 3. Xanax 2 mg b.i.d. p.r.n. 4. Amlodipine 2.5 b.i.d. 5. Aspirin 325 at bedtime. 6. Bumex 2 mg IV q.12. 7. Coreg 3.125 b.i.d. 8. Plavix 75 mg daily. 9. Famotidine 40 mg daily. 10. Cozaar 100 mg daily. 11. Metolazone 2.5 mg p.o. daily. 12. MS Contin 50 mg p.o. q.12. 13. Crestor 10 mg p.o. daily. ASSESSMENT AND PLAN: 1. [id number]-ctefcpx congestive systolic heart failure with ejection fraction of 20% on recent echo. We will continue with the diuretic therapy and also patient's home medications. He has been seen by Cardiology. 2. 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 3. Coronary artery disease status post stent in the diagonal artery. This was patent in the last left heart catheterization. The patient is still on dual anti-platelet therapy. 4. Hyponatremia, improved. 5. Hypokalemia. We will continue to replace. 6. Chronic pain syndrome. The patient has been started back on some of his pain medications. He still thinks he has been hurting all over the place, but I think what he is on now should be enough and adequate. In general, I think Mr. Nathan is fairly stable. He has been diuresing well at 3850 yesterday. He is currently negative balance. We are going to continue with the current management and re- evaluate his and re-evaluate him tomorrow. We will repeat his proBNP and a chest x-ray and his BMP. cc: Umair Blackman MD
[2018-03-11] MEDS: ASPIRIN EC PO SCH (22:03)
[2018-03-12] MEDS: NORCO-10 PO PRN ×2 (02:29→10:36)
[2018-03-12] MEDS: DUONEB (A & A) INH SCH ×2 (04:17→11:20)
--- NOTE | 2018-03-12 07:13 | EKG Report ---
Test Performed on : 03/11/2018 06:05:20 AM Test Reason : chest pain Blood Pressure : / mmHG Vent. Rate : 093 BPM Atrial Rate : 093 BPM P-R Int : 170 ms QRS Dur : 106 ms QT Int : 424 ms P-R-T Axes : 057 -48 077 degrees QTc Int : 527 ms Sinus rhythm. with premature atrial complexes. Left axis deviation Nonspecific T wave abnormality Prolonged QT Abnormal ECG When compared with ECG of 10-MAR-2018 04:45, (Unconfirmed) Criteria for Inferior infarct are no longer present Confirmed by [place] PHILLIPS, Forrest Lutz ([id number]) on 03/12/2018 11:29:13 AM
[2018-03-12 07:34] VITALS: BP 109/86
--- NOTE | 2018-03-12 07:38 | EKG Report ---
Test Performed on : 03/10/2018 04:45:27 AM Test Reason : CHF Blood Pressure : / mmHG Vent. Rate : 096 BPM Atrial Rate : 096 BPM P-R Int : 170 ms QRS Dur : 102 ms QT Int : 412 ms P-R-T Axes : 040 -51 058 degrees QTc Int : 520 ms Sinus rhythm. with premature atrial complexes. Left axis deviation Inferior infarct , age undetermined Prolonged QT Abnormal ECG When compared with ECG of 23-FEB-2018 14:09, (Unconfirmed) premature ventricular complexes. are no longer present premature atrial complexes. are now present T wave inversion less evident in Lateral leads Unconfirmed Result
[2018-03-12 08:23] LABS: CALCIUM 9.3 mg/dL (8.8-10.2); CREATININE 1.5 mg/dL (0.7-1.2); POTASSIUM 3.8 mmol/L (3.5-5.1)
[2018-03-12] MEDS: NORVASC PO SCH (10:31)
[2018-03-12] MEDS: BUMEX IV SCH (10:31)
[2018-03-12] MEDS: PLAVIX PO SCH (10:33)
[2018-03-12] MEDS: COZAAR PO SCH (10:33)
[2018-03-12] MEDS: XANAX PO PRN ×2 (10:33→13:11)
[2018-03-12] MEDS: KLOR-CON PO SCH (10:33)
[2018-03-12] MEDS: COREG PO SCH (10:33)
[2018-03-12] MEDS: ZAROXOLYN PO SCH (10:34)
[2018-03-12] MEDS: CRESTOR PO SCH (10:35)
[2018-03-12] MEDS: MS CONTIN PO SCH (10:35)
[2018-03-12] MEDS: PEPCID PO SCH (10:35)
--- NOTE | 2018-03-12 11:08 | Diag Imaging Result Doc PS360 ---
EXAM: CHEST-2 VIEWS 03/12/2018 HISTORY: hypoxia TECHNIQUE: PA and lateral chest COMMENT: There is cardiomegaly with left ventricular enlargement. There is a left-sided pacemaker. Compared to 03/10/2018 there has been no significant change. IMPRESSION: Cardiomegaly. Electronically signed by Temo Rodriguez 03/12/2018 11:06 AM
--- NOTE | 2018-03-13 05:49 | DISCHARGE SUMMARY ---
ADMISSION DATE: 03/10/2018 DISCHARGE DATE: 03/12/2018 DISPOSITION: Home. FOLLOW-UP: 1. Dr. Ng. 2. Dr. Saldana. CONSULTATION DURING ADMISSION: None. IMAGING STUDIES OF SIGNIFICANCE: A chest x-ray was done on presentation which showed there is mild pulmonary venous congestion and interstitial edema. ADMISSION DIAGNOSES: 1. Acute on chronic congestive heart failure. 2. Hypokalemia. 3. COPD. 4. Hypertensive heart disease. DIAGNOSES AT TIME OF DISCHARGE: 1. Acute on chronic congestive heart failure with ejection fraction of 20% on recent echo. The patient was adequately diuresed and symptoms improved. 2. 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 3. Coronary artery disease status post stent in the diagonal artery. Last left heart catheterization showed adequate patency. The patient is on dual anti-platelet therapy. 4. Hyponatremia improved. 5. Chronic pain syndrome. Patient has been advised to follow up with his primary care doctor on his pain medications. DISCHARGE MEDICATIONS: 1. Amlodipine 2.5 b.i.d. 2. Aspirin 325 daily. 3. Losartan 100 mg daily. 4. Clopidogrel 75 mg daily. 5. Crestor 10 mg daily. 6. Famotidine 40 mg daily. 7. Bumetanide 1 mg b.i.d. 8. Metolazone 2.5 mg daily. 9. Spironolactone 25 mg daily. RECOMMENDATIONS: The patient is supposed to do basic metabolic panel in 1 week and follow up with his primary care doctor. PRESENTING COMPLAINT: Shortness of breath. HISTORY OF PRESENT COMPLAINT: Mr. Nathan is a 47-year-old gentleman who presented to the emergency department because of ongoing shortness of breath. He was evaluated, and was found to be in congestive symptoms including crackles in the lungs, history of PND, orthopnea and lower extremity swelling. He was subsequently admitted for congestive heart failure exacerbation for medical management. HOSPITAL COURSE: The patient did pretty well during the hospital stay. He did diurese on the diuretic therapy. He became negative balance, and he did lose some weight. Throughout the hospital course, however, his main complaints were just about the pains everywhere. He was started on some narcotic therapy which made things a little better. He got a repeat of his pro B which had improved significantly, and his symptoms also has significantly improved. The patient was therefore discharged to follow up with his primary care and his psychiatric nursing assistant. This morning when I saw Mr. Nathan, he was half asleep, but he said he was feeling better. Blood pressure was 109/86, pulse of 80, respirations 18, and temperature is 97.9 degrees. The patient was saturating about 92 to 95 percent on room air. All the congestive signs have been improved significantly. Of note, patient's creatinine had gone up slightly to 1.5 during the hospital course, and he has been advised to repeat his BMP in 1 week to follow up on that. All the discharge instructions were discussed with him, and he voiced understanding. TIME SPENT FOR DISCHARGE: 35 minutes. cc: MD Adalberto Schroeder MD Luis N. Villanueva, MD
== END 2018-03-12 14:00 | disposition home or self-care (01) | DRG 292 ==
LOC: ED 01:02 → 3N 06:42 → SUATTDRO 06:42
PROVIDERS: ATTEND Internal Medicine
CPT/HCPCS: 71010; 71020; 71045; 71046; 80048; 82948; 83735; 83880; 84132; 84484; 85025; 93005; 93010; 94640; 94761; 96374; 99285; A9270; J1940; S0171; XXXXX

== ENCOUNTER 2018-03-18 18:36 | Inpatient (IN) ==
[2018-03-18] MEDS ORDERED: ASPIRIN PO ONE (19:03)
--- NOTE | 2018-03-18 19:05 | EKG Report ---
Test Performed on : 03/18/2018 6:48:05 PM Test Reason : cp Blood Pressure : / mmHG Vent. Rate : 099 BPM Atrial Rate : 099 BPM P-R Int : 164 ms QRS Dur : 100 ms QT Int : 374 ms P-R-T Axes : 042 -48 088 degrees QTc Int : 479 ms Sinus rhythm. with premature atrial complexes. Left axis deviation T wave abnormality, consider lateral ischemia Prolonged QT Abnormal ECG When compared with ECG of 16-MAR-2018 11:32, (Unconfirmed) premature atrial complexes. are now present Unconfirmed Result
[2018-03-18] MEDS ORDERED: TYLENOL PO ONE (19:13)
--- NOTE | 2018-03-18 19:21 | PROVIDER DOCUMENTATION ---
HPI-Chest Pain - General Chief Complaint: Chest Pain Stated Complaint: CP Time Seen by Provider: 03/18/18 19:01 Source: patient Allergies/Adverse Reactions: Patient Allergies Allergy/AdvReac Type Severity Reaction Status Date / Time Penicillins Allergy Intermediate Unknown Verified 03/10/18 06:03 amoxicillin Allergy Unknown Unknown Verified 03/10/18 06:03 atropine Allergy ANAPHYLAXIS Verified 03/10/18 06:03 ketorolac [From Toradol] Allergy RASH Verified 03/10/18 06:03 Latex, Natural Rubber Allergy RASH Verified 03/10/18 06:03 levofloxacin [From Levaquin] Allergy ITCHING Verified 03/10/18 06:03 lorazepam [From Ativan] AdvReac Unknown Verified 03/10/18 06:03 Home Medications: Home Medication List Medication Instructions Recorded Confirmed Last Taken Type Amlodipine [Norvasc] 2.5 mg PO BID #60 tablet 10/07/16 03/10/18 02/23/18 Rx Aspirin EC 1 each PO QHS #90 tablet 10/07/16 03/10/18 03/09/18 09:00 Rx Losartan Potassium [Cozaar] 100 mg PO DAILY #30 tablet 10/07/16 03/10/18 09:00 Rx Clopidogrel Bisulfate [Plavix] 75 mg PO DAILY #90 tab 07/03/17 03/10/18 09:00 Rx Albuterol 2.5MG/Ipratrop 0.5MG 3 ml INH RTQ6H #120 neb 09/07/17 03/10/18 Rx [Duoneb (A & A)] Alprazolam [Xanax] 2 mg PO BID PRN #42 tab 09/07/17 03/10/18 02/23/18 Rx Albuterol Sulfate [Proair Hfa] 2 puff IN Q4H PRN PRN 10/05/17 03/10/18 02/23/18 History Famotidine 40 mg PO DAILY 10/05/17 03/10/18 03/09/18 09:00 History ROSUVAstatin [Crestor] 10 mg PO DAILY 10/05/17 03/10/18 03/09/18 09:00 History Carvedilol [Coreg] 6.125 mg PO BID 01/08/18 03/10/18 03/09/18 09:00 History Hydrocodone Bit/Acetaminophen 10 mg PO TID 01/08/18 03/10/18 02/23/18 History [Hydrocodon-Acetaminophn 10-325] Bumetanide 1 mg PO BID #90 tab 03/12/18 Unknown Rx Metolazone [Zaroxolyn] 2.5 mg PO DAILY #30 tab 03/12/18 Unknown Rx Spironolactone [Aldactone] 25 mg PO DAILY #120 tab 03/12/18 Unknown Rx Tramadol/APAP [Ultracet 1 ea PO Q6H PRN PRN #11 tab 03/16/18 Unknown Rx 37.5MG/325Mg] Tramadol/APAP [Ultracet 1 each PO Q6H PRN PRN #20 tablet 03/16/18 Unknown Rx 37.5MG/325Mg] - History of Present Illness-CP Nature of Presenting Problem: 47yom present to ER with c/o CP with movement and inspiration, cough, SOB, and bodyaches x 3 days. Denies fever. Pt was seen a [facility] ER this morning for same complaints. Pt appears anxious and requests pain medication repetitively during assessment. Location: reports: central Chest Pain Radiation: reports: no radiation Quality of Pain: reports: aching Onset/Duration: 3 days ago Modifying Factors: improves with: rest. worse with: breathing, coughing, movement Associated Symptoms: reports: shortness of breath. denies: abdominal pain, diaphoresis, dizziness, fever/chills, vomiting Review of Systems - Adult - REVIEW OF SYSTEMS - ADULT Constitutional: reports: no symptoms reported Eyes: reports: no symptoms reported Ears, Nose, Mouth & Throat: reports: no symptoms reported Cardiovascular: reports: see HPI, chest pain. denies: palpitations Respiratory: reports: see HPI, cough, shortness of breath. denies: wheezing Gastrointestinal: reports: no symptoms reported. denies: abdominal pain, nausea , vomiting Genitourinary: reports: no symptoms reported Musculoskeletal: reports: no symptoms reported Integumentary: reports: no symptoms reported Neurological: reports: no symptoms reported Psychiatric: reports: no symptoms reported Endocrine: reports: no symptoms reported Hematologic/Lymphatic: reports: no symptoms reported Allergic/Immunologic: reports: no symptoms reported All Other Systems: Reviewed and Negative Past History - Adult - PAST MEDICAL HISTORY-ADULT Review of Records: reports: Old Records Reviewed, Nursing Assessment Review, Medications Reviewed Major Childhood Illnesses: reports: denies history Cardiovascular: reports: cardiac disease, angina, CAD, CHF, HTN, hyperlipidemia , OR, pacemaker, other (cardiomyopathy/ 20% ejection fraction) Respiratory: reports: COPD Gastrointestinal: reports: denies history Obstetrical/Gynecological: reports: denies history Genitourinary: reports: denies history Musculoskeletal: reports: chronic pain Neurological: reports: denies history Psychiatric: reports: anxiety, ptsd Endocrine/Immune: reports: denies history Other Conditions: reports: denies history - PRIOR SURGERIES/PROCEDURES Surgical/Procedure History: reports: reviewed, not pertinent, cardiac stent, pacemaker - IMMUNIZATION STATUS Childhood Immunizations: See Nurse Assessment Flu Vaccine: See Nurse Assessment - FAMILY HISTORY Family History: CAD under 55yo Physical Exam-General - PHYSICAL EXAM-ADULT Initial Vital Signs Reviewed: Yes - CONSTITUTIONAL General Appearance: alert, anxious - EYES Eyes: PERRL/EOMI, pink conjunctivae - HEAD, EARS, NOSE, MOUTH & THROAT HENMT: moist mucous membranes, normal ENT inspection - NECK Neck: full range of motion, supple, normal inspection - RESPIRATORY Respiratory: chest non-tender, lungs clear, normal breath sounds, no respiratory distress, no accessory muscle use - CARDIOVASCULAR Cardiovascular: normal peripheral pulses, regular rate, rhythm - GASTROINTESTINAL (ABDOMEN) Abdominal Exam: normal bowel sounds, non tender, soft - LYMPHATIC Lymphatic: no adenopathy - MUSCULOSKELETAL Back Exam: normal inspection Extremity: normal range of motion, normal gait, normal inspection, normal capillary refill - SKIN Integumentary: normal color, normal turgor, warm/dry - NEUROLOGIC Neurologic: grossly normal - PSYCHIATRIC Psych/Mental Status: oriented x 3 Progress - PLAN OF CARE/RESULTS Progress/Plan/Lab Results: Vital Signs - 8 hr 03/18/18 18:54 03/18/18 20:19 03/18/18 21:46 Temperature 98.0 F Pulse Rate 95 H 100 H 105 H Respiratory Rate 22 23 18 Blood Pressure 139/90 126/98 131/95 O2 Sat by Pulse Oximetry 99 99 93 L Laboratory Results - last 24 hr 03/18/18 03/18/18 03/18/18 19:31 20:18 20:18 WBC 8.32 RBC 4.58 L Hgb 12.4 L Hct 39.9 L MCV 87.1 MCH 27.1 MCHC 31.1 L RDW Std Deviation 18.3 H Plt Count 247 MPV 9.9 Immature Gran % (Auto) 0.1 Neut % (Auto) 69.8 Lymph % (Auto) 18.4 L [place] % (Auto) 8.8 Eos % (Auto) 2.2 Baso % (Auto) 0.7 Immature Gran # (Auto) 0.01 Neut # (Auto) 5.81 Lymph # (Auto) 1.53 [place] # (Auto) 0.73 H Eos # (Auto) 0.18 Baso # (Auto) 0.06 Sodium 135 L Potassium 3.7 Chloride 93 L Carbon Dioxide 29 Anion Gap 13 BUN 19 Creatinine 1.4 H Estimated GFR/1.73 m2 55 BUN/Creatinine Ratio 14 Glucose 123 H Calculated Osmolality 274 Calcium 8.8 Total Bilirubin 1.70 H AST 20 ALT 14 Alkaline Phosphatase 101 Creatine Kinase 81 Troponin T Aaj-M-Nizspssapez Pept Total Protein 5.9 L Albumin 3.3 L Globulin 3.0 Albumin/Globulin Ratio 1.0 Urine Source Urine Color Urine Clarity Urine pH Ur Specific [place] Urine Protein Urine Ketones Urine Blood Urine Nitrite Urine Bilirubin Urine Urobilinogen Urine Microscopic RBC Urine WBC Urine Microscopic WBC Ur Epithelial Cells Urine Crystals Urine Bacteria Urine Casts Urine Yeast Urine Glucose Urine Opiates Screen Ur Oxycodone Screen Urine Methadone Screen U Propoxyphene Qual Ur Barbituates Screen Ur Tricyclics Screen Ur Phencyclidine Scrn Ur Amphetamines Screen U Methamphetamines Scrn U Benzodiazepines Scrn Urine Cocaine Screen U Cannabinoids Screen Influenza A (Rapid) NEGATIVE Influenza B (Rapid) NEGATIVE 03/18/18 03/18/18 03/18/18 20:18 20:18 20:18 WBC RBC Hgb Hct MCV MCH MCHC RDW Std Deviation Plt Count MPV Immature Gran % (Auto) Neut % (Auto) Lymph % (Auto) [place] % (Auto) Eos % (Auto) Baso % (Auto) Immature Gran # (Auto) Neut # (Auto) Lymph # (Auto) [place] # (Auto) Eos # (Auto) Baso # (Auto) Sodium Potassium Chloride Carbon Dioxide Anion Gap BUN Creatinine Estimated GFR/1.73 m2 BUN/Creatinine Ratio Glucose Calculated Osmolality Calcium Total Bilirubin AST ALT Alkaline Phosphatase Creatine Kinase 89 Troponin T 0.035 Ovi-T-Mpevuyujfsw Pept 4558 H Total Protein Albumin Globulin Albumin/Globulin Ratio Urine Source Urine Color Urine Clarity Urine pH Ur Specific [place] Urine Protein Urine Ketones Urine Blood Urine Nitrite Urine Bilirubin Urine Urobilinogen Urine Microscopic RBC Urine WBC Urine Microscopic WBC Ur Epithelial Cells Urine Crystals Urine Bacteria Urine Casts Urine Yeast Urine Glucose Urine Opiates Screen Ur Oxycodone Screen Urine Methadone Screen U Propoxyphene Qual Ur Barbituates Screen Ur Tricyclics Screen Ur Phencyclidine Scrn Ur Amphetamines Screen U Methamphetamines Scrn U Benzodiazepines Scrn Urine Cocaine Screen U Cannabinoids Screen Influenza A (Rapid) Influenza B (Rapid) 03/18/18 03/18/18 21:04 21:04 WBC RBC Hgb Hct MCV MCH MCHC RDW Std Deviation Plt Count MPV Immature Gran % (Auto) Neut % (Auto) Lymph % (Auto) [place] % (Auto) Eos % (Auto) Baso % (Auto) Immature Gran # (Auto) Neut # (Auto) Lymph # (Auto) [place] # (Auto) Eos # (Auto) Baso # (Auto) Sodium Potassium Chloride Carbon Dioxide Anion Gap BUN Creatinine Estimated GFR/1.73 m2 BUN/Creatinine Ratio Glucose Calculated Osmolality Calcium Total Bilirubin AST ALT Alkaline Phosphatase Creatine Kinase Troponin T Rvo-Q-Robljxahdbq Pept Total Protein Albumin Globulin Albumin/Globulin Ratio Urine Source CLEAN CATCH Urine Color YELLOW Urine Clarity CLEAR Urine pH 5.0 Ur Specific [place] 1.020 Urine Protein 2+(100 mg/dL) A Urine Ketones TRACE Urine Blood TRACE Urine Nitrite NEGATIVE Urine Bilirubin NEGATIVE Urine Urobilinogen 4 Urine Microscopic RBC <10 Urine WBC 1+ A Urine Microscopic WBC 10-20 A Ur Epithelial Cells >10 A Urine Crystals NONE SEEN Urine Bacteria 1+ Urine Casts NONE SEEN Urine Yeast NONE SEEN Urine Glucose NEGATIVE Urine Opiates Screen NONE DETECTED Ur Oxycodone Screen NONE DETECTED Urine Methadone Screen NONE DETECTED U Propoxyphene Qual NONE DETECTED Ur Barbituates Screen NONE DETECTED Ur Tricyclics Screen NONE DETECTED Ur Phencyclidine Scrn NONE DETECTED Ur Amphetamines Screen NONE DETECTED U Methamphetamines Scrn NONE DETECTED U Benzodiazepines Scrn NONE DETECTED Urine Cocaine Screen PRESUMPTIVE POSITIVE A U Cannabinoids Screen NONE DETECTED Influenza A (Rapid) Influenza B (Rapid) Orders Category Date Time Status Admit - [facility] Routine AdmDCTranf 03/18/18 21:34 Active Activity - Strict Bedrest ORDERED Care 03/18/18 21:34 Active Nursing- Obtain EKG once Care 03/18/18 19:02 Active Resuscitation Status Routine Care 03/18/18 21:34 Ordered Saline Loc DIRECTED Care 03/18/18 21:34 Active Vital Signs Order Q 4-HR ASSESS Care 03/18/18 21:34 Active Z-Document. for Tele Applied ORDERED Care 03/18/18 21:36 Active NPO Diet 03/18/18 21:36 Active CHEST-2 VIEWS [RAD] Stat Exams 03/18/18 19:02 Completed Ene [MYOCARDIAL PERF SCAN, STR/REST] [NM] Stat Exams 03/18/18 21:37 Ordered BNP [PRO B-NATRIURETIC PEPTIDE] Stat Lab 03/18/18 20:18 Completed CBC WITH DIFF [HEME] Stat Lab 03/18/18 20:18 Completed CK PROFILE [SP CHEM] Q4H Lab 03/18/18 20:18 Completed CK PROFILE [SP CHEM] Q4H Lab 03/19/18 03:30 Ordered CK PROFILE [SP CHEM] Stat Lab 03/18/18 20:18 Completed COMPREHENSIVE METABOLIC PANEL [CHEM] Stat Lab 03/18/18 20:18 Completed Flu [INFLUENZA SCREEN PL] Stat Lab 03/18/18 19:31 Completed TROPONIN T Stat Lab 03/18/18 20:[address] W/POSS RFLX CULT [URINALYSIS] Stat Lab 03/18/18 21:04 Completed URINE CULTURE [RM] Routine Lab 03/18/18 21:38 Ordered URINE DRUG SCREEN PL Stat Lab 03/18/18 21:04 Completed Acetaminophen [Tylenol] Med 03/18/18 19:13 Discontinued 1,000 mg PO NOW ONE Aspirin Med 03/18/18 19:03 Discontinued 325 mg PO NOW ONE Furosemide [Lasix] Med 03/18/18 20:49 Discontinued 40 mg IV NOW ONE Furosemide [Lasix] Med 03/18/18 20:49 Discontinued 40 mg IV NOW ONE Furosemide [Lasix] Med 03/18/18 21:45 Active 40 mg IV Q12H Morphine Med 03/18/18 19:49 Discontinued 2 mg IV NOW ONE Nitroglycerin Med 03/18/18 19:49 Discontinued 1 inch TOP NOW ONE Ondansetron [Zofran] Med 03/18/18 19:49 Discontinued 4 mg IV NOW ONE Oxygen Device Routine Oth 03/18/18 21:36 Active Telemetry [OM.EQ] Routine Oth 03/18/18 21:34 Active EKG [EKG] Stat Ther 03/18/18 19:02 Draft Transfer/Admit Order [TRANSFER] Routine Transfer 03/18/18 21:39 Ordered Heart Score 5 Result Diagrams: 03/18/18 20:18 03/18/18 20:18 - REASSESSMENT Reassessment #1 Time Reassessed: 19:21 (Asked pt about visit earlier today and if symptoms had changed since, pt became very upset. Pt upset when asked about positive cocaine use. Pt denies states "man that was a week ago, I was just in the car with someone. I didnt do cocaine." Pt states symptoms have not changed since previous visit this morning.) Reassessment #2 Time Reassessed: 19:47 (At bedside with Dr Benson. ) Reassessment #3 Time Reassessed: 22:02 (discussed results with pt and plan for admission.) - EKG 1 Time of EKG reading by physician:: 19:48 EKG Read and Signed by:: Edward Benson EKG Interpretation (*Must complete 3 of following elements*): Abnormal Rate: 99 Rhythm: Sinus rhythm with premature atrial complexes - XRAY 1 XRAY: Bilateral XRAY Study: Chest Impression: See EMR Report (There is cardiomegaly similar to prior. There is transvenous cardiac pacemaker again seen. There is mild prominence of interstitial markings. There is no dense consolidation, substantial pleural effusion, or pneumothorax identified. IMPRESSION: Cardiomegaly similar to prior. Mild prominence of interstitial markings. Electronically signed by Barrera Arroyo 03/18/2018 8:06 PM) - CONSULTS/PCP/HOSPITALIST Notification #1 *Consult/PCP/Hospitalist*: Dr Benson spoke with rahul Servin Time Discussed: 21:32 Consult Disposition: Admit Departure - Departure Date of Disposition Decision: 03/18/18 Time of Disposition Decision: 21:34 DIAGNOSIS: Cardiomegaly, Cocaine abuse Chest pain Qualifiers: Chest pain type: unspecified Qualified Code(s): R07.9 - Chest pain, unspecified Dyspnea Qualifiers: Dyspnea type: shortness of breath Qualified Code(s): R06.02 - Shortness of breath Acute exacerbation of CHF (congestive heart failure) Qualifiers: Heart failure type: unspecified Qualified Code(s): I50.9 - Heart failure, unspecified Disposition: ADMITTED INPATIENT 09 Certified Medical Emergency: Emergent Condition: Fair - Critical Care Note This patient required my direct & personal management of CC.: No Attestation - Physician/ ELEONORA Attestation Patient care was provided by Advanced Practice Provider:: Yes Advanced Practice Provider:: Angel Peterson Advanced Practice Provider documentation review:: The Mid-level provider documentation, treatment plan and medical decision making was reviewed by the physician who agrees with all treatment and medical decision making by the MLP. The physician spent face to face time with patient:: Yes Advanced Practice Provider documentation review:: Supervising physician onsite and consulted in the evaluation and care of this patient. The physician did have a face to face encounter with the patient.
[2018-03-18] MEDS ORDERED: ZOFRAN IV ONE (19:49)
[2018-03-18] MEDS ORDERED: MORPHINE IV ONE ×2 (19:49→22:03)
[2018-03-18] MEDS ORDERED: NITROGLYCERIN TOP ONE (19:49)
--- NOTE | 2018-03-18 20:08 | Diag Imaging Result Doc PS360 ---
EXAM: CHEST-2 VIEWS - 03/18/2018 HISTORY: cp TECHNIQUE: Chest two views COMPARISON: Prior exam from 03/18/2018 FINDINGS: There is cardiomegaly similar to prior. There is transvenous cardiac pacemaker again seen. There is mild prominence of interstitial markings. There is no dense consolidation, substantial pleural effusion, or pneumothorax identified. IMPRESSION: Cardiomegaly similar to prior. Mild prominence of interstitial markings. Electronically signed by Barrera Arroyo 03/18/2018 8:06 PM
[2018-03-18 20:11] LABS: INFLUENZA A NEGATIVE (NEGATIVE); INFLUENZA B NEGATIVE (NEGATIVE)
[2018-03-18 20:32] LABS: BASO# 0.06 X1000 (0.0-0.2); BASO% 0.7 % (0.0-0.8); EOS# 0.18 X1000 (0.0-0.7); EOS% 2.2 % (0.0-10.0); HEMATOCRIT 39.9 % (42.0-52.0); HEMOGLOBIN 12.4 g/dL (14.0-18.0); IMM GRAN# 0.01 X1000 (0.0-0.04); IMM GRAN% 0.1 % (0.0-0.5); LYMPH# 1.53 X1000 (1.2-3.4); LYMPH% 18.4 % (20.5-51.1); MCH 27.1 PG (27-31); MCHC 31.1 g/dL (33-37); MCV 87.1 FL (81-99); MONO# 0.73 X1000 (0.11-0.59); MONO% 8.8 % (1.7-9.3); MPV 9.9 FL (7.4-10.4); NEUT# 5.81 X1000 (1.4-6.5); NEUT% 69.8 % (42.2-75.2); PLT 247 X1000 (130-400); RBC 4.58 XMIL (4.7-6.1); RDW 18.3 % (11.5-14.5); WBC 8.32 X1000 (4.8-10.8)
[2018-03-18 20:44] LABS: ALBUMIN 3.3 g/dL (3.5-5.0); CALCIUM 8.8 mg/dL (8.8-10.2); CREATININE 1.4 mg/dL (0.7-1.2); POTASSIUM 3.7 mmol/L (3.5-5.1); TOTAL BILIRUBIN 1.7 mg/dL (0.20-1.00); TOTAL PROTEIN 5.9 g/dL (6.3-8.3)
[2018-03-18] MEDS ORDERED: LASIX IV ONE ×2 (20:49)
[2018-03-18 21:17] LABS: BILIRUBIN URINE NEGATIVE (NEGATIVE); BLOOD URINE TRACE (NEGATIVE); CLARITY CLEAR (CLEAR); COLOR YELLOW; GLUCOSE URINE NEGATIVE (NEGATIVE); KETONE URINE TRACE mg/dL (NEGATIVE); LEUKOCYTES URINE 1+ (NEGATIVE); NITRITE URINE NEGATIVE (NEGATIVE); PROTEIN URINE 2+(100 mg/dL) mg/dL (NEGATIVE); UROBILINOGEN URINE 4 mg/dL
[2018-03-18 21:28] LABS: UR AMPHETAMINES QUAL NONE DETECTED (NONE DETECT); UR BARBITUATES QUAL NONE DETECTED (NONE DETECT); UR BENZODIAZEPIN QUAL NONE DETECTED (NONE DETECT); UR COCAINE QUAL PRESUMPTIVE POSITIVE (NONE DETECT); UR METHADONE QUAL NONE DETECTED (NONE DETECT); UR METHAMPHETAMINE QUAL NONE DETECTED (NONE DETECT); UR OPIATES QUAL NONE DETECTED (NONE DETECT); UR OXYCODONE QUAL NONE DETECTED (NONE DETECT); UR PCP QUAL NONE DETECTED (NONE DETECT); UR PROPOXYPHENE QUAL NONE DETECTED (NONE DETECT); UR TCA QUAL NONE DETECTED (NONE DETECT)
[2018-03-18 21:29] LABS: UR CANNABINOIDS QUAL NONE DETECTED (NONE DETECT)
[2018-03-18 21:36] LABS: URINE SOURCE CLEAN CATCH
[2018-03-18 21:38] LABS: URINE BACTERIA 1+ /HFP; URINE CAST NONE SEEN /LPF; URINE CRYSTAL NONE SEEN /HPF; URINE EPITHELIAL CELLS >10 /HPF (<10); URINE RBC <10 /HPF (<10); URINE YEAST NONE SEEN /HPF
[2018-03-18] MEDS: LASIX IV SCH (21:45)
[2018-03-19] MEDS: LASIX IV SCH (09:55)
[2018-03-19] MEDS ORDERED: DUONEB (A & A) INH ONE (12:47)
[2018-03-19] MEDS: NORCO-7.5 PO PRN ×3 (13:59→21:29)
[2018-03-20] MEDS ORDERED: NITROGLYCERIN SL PRN (00:19)
--- NOTE | 2018-03-20 01:18 | EKG Report ---
Test Performed on : 03/20/2018 00:18:56 AM Test Reason : chest pain Blood Pressure : / mmHG Vent. Rate : 105 BPM Atrial Rate : 105 BPM P-R Int : 160 ms QRS Dur : 100 ms QT Int : 358 ms P-R-T Axes : 039 -47 084 degrees QTc Int : 473 ms Sinus tachycardia. Left axis deviation Abnormal ECG When compared with ECG of 18-MAR-2018 18:48, (Unconfirmed) premature atrial complexes. are no longer present T wave inversion less evident in Lateral leads Confirmed by Chucky Tovar MD ([id number]) on 03/25/2018 9:49:07 AM
[2018-03-20] MEDS: NORCO-7.5 PO PRN ×3 (03:25→19:40)
[2018-03-20] MEDS: LASIX IV SCH ×3 (05:03→21:50)
[2018-03-20] MEDS: ALDACTONE PO SCH ×2 (10:53→21:50)
[2018-03-20] MEDS ORDERED: AMINOPHYLLINE ONE (11:00)
[2018-03-20] MEDS ORDERED: LEXISCAN ONE (11:00)
--- NOTE | 2018-03-20 13:37 | GRADED EXERCISE REPORT ---
DATE: 03/20/2018 STUDY: Lexiscan EKG treadmill. INDICATIONS: The patient has chest pain, heart failure. PHYSICIAN: Adalberto Ng MD. SUMMARY: Briefly, this is a 47-year-old gentleman undergoing Lexiscan. Baseline heart rate 99, baseline blood pressure 136/97. His EKG showed some left atrial enlargement, nonspecific ST changes. Quite a left bundle, but kind of nonspecific changes. He underwent Lexiscan per protocol. 0.4 mg was infused. He was doing okay. About 4 minutes into the test though, he did develop chest pain, which intensified. We ended up giving him 100 mg of aminophylline with improvement in his symptoms. He did have some occasional ectopy such as a PVC, but I did not appreciate any significant ST changes during the test and therefore, felt to be electrically negative, although clinically positive. Myocardial perfusion will be reported separately. cc: MD Adalberto Delaney MD
[2018-03-20] MEDS ORDERED: NORCO-7.5 PO ONE (13:54)
[2018-03-20] MEDS: ENTRESTO 24 MG-26 MG TABLET PO SCH (21:50)
[2018-03-21] MEDS: NORCO-7.5 PO PRN ×3 (01:55→19:41)
--- NOTE | 2018-03-21 07:32 | Diag Imaging Result Document ---
PROCEDURE NAME: MYOCARDIAL PERF SCAN, STR/REST - 03/18/2018 STUDY: Rest/stress Lexiscan myocardial perfusion study. REQUESTING PHYSICIAN: Dr. Villeda and emergency room, Dr. Edward Benson. INDICATION: Chest pain. History of cardiomyopathy. DESCRIPTION: The patient came into the nuclear lab, received a rest injection of technetium-99 sestamibi 14.9 mCi. Multiple tomographic views of the cardiac structures were obtained at rest. Subsequently, the patient underwent infusion of Lexiscan per protocol under the supervision of Dr. Villeda. At peak infusion was injected with technetium-99 sestamibi 42.9 mCi. Multiple tomographic views of the cardiac structures were obtained following the completion of the exercise protocol. SUMMARY OF ELECTROCARDIOGRAPHIC PORTION OF STUDY: Dr. Villeda has already taken care of this portion of the test. SUMMARY OF THE MYOCARDIAL PERFUSION PORTION OF THE STUDY: Poststress tomographic views of the left ventricle showed a relatively focal basal anterior defect of mild to moderate severity. In addition, there is a focal apical anterior defect and a moderately extensive inferior wall defect. The rest images show that the basal anterior defect, the focal apical anterior defect, and the moderately extensive inferior wall defect are all fixed. The polar plots reveal the same. There is a question of either scar or attenuation artifact involving the basal anterior wall of the left ventricle as well as the inferior wall of the left ventricle. The apex may be explained by apical thinning. No ischemia is identified. Gated SPECT shows that the left ventricular chamber is markedly dilated. The end-diastolic volume is 443 mL and systolic volume 374 mL, that is massive dilatation of the heart with an ejection fraction of 16% using this imaging modality. The lung/heart ratio is elevated. The TID is 1.14, which is also somewhat elevated. IMPRESSION: In summary, this study shows: 1. Abnormal poststress myocardial perfusion scan. There is scintigraphic suggestion of scar involving the basal anterior wall of the left ventricle, the inferior wall of the left ventricle, and probably attenuation artifact versus apical thinning in the apex of the left ventricle. 2. There is no evidence of inducible ischemia. 3. Markedly dilated left ventricle with low ejection fraction of 16%. The end-diastolic volume of this left ventricle is 443 mL. The study is consistent with a dilated cardiomyopathy, probably of nonischemic origin. cc: Jorge Saldana MD
[2018-03-21] MEDS: LASIX IV SCH ×2 (10:37→21:11)
[2018-03-21] MEDS: ALDACTONE PO SCH ×2 (10:37→21:11)
[2018-03-21] MEDS: ENTRESTO 24 MG-26 MG TABLET PO SCH ×2 (10:40→21:11)
--- NOTE | 2018-03-22 01:17 | PROGRESS NOTE ---
DATE: 03/20/2018 SUBJECTIVE: Patient seen and examined by myself on the . The patient has multiple complaints. Notes that he is having more swelling in his lower extremities. Is having some shortness of breath and dyspnea on exertion. PHYSICAL EXAMINATION: Vital Signs: Reviewed. Temperature is 99.3 degrees, pulse 52, respiratory 20, BP 138/91. General: The patient is a quite unpleasant at times individual. He is in no current respiratory distress. He is lying flatly in the bed, which he is jointly sharing with his . HEENT: Normocephalic. Neck: Supple. CARDIOVASCULAR: Regular rate. No current gallops or rubs. Chest: Decreased breath sounds bilaterally. No current crackles. Abdomen: Soft, nondistended. Extremities: He moves all extremities. He has 2+ edema bilateral lower extremities. ASSESSMENT: 1. Severe congestive heart failure. 2. Chest pain. Discussed with patient that we will not continue IV morphine. Discussed with him that he appears to be having chest pain. Discussed with patient if his enzymes are negative he will have a stress test today. We will not continue IV morphine as it does not appear as though he is having an acute IA. 3. Chronic pain. Discussed with patient it appears as though he may have a problem with narcotic use and possibly abuse as he has been to multiple physicians over the last several months to receive narcotics. Discussed with him that I personally will not write for him to have long- term narcotics at home. 4. Drug abuse. Patient's urine drug screen is positive for cocaine. In the past he has admitted that he was in hotel room in which people were using cocaine and that was the reason that he was positive. This time he is positive apparently because he was in the car with people using cocaine although he states that he has not used. 5. Hypertension. 6. Medical noncompliance. 7. High cholesterol. PLAN: We will continue patient in hospital. Check a stress test. Increase his Lasix. Discussed that he needs to be on Entresto given his severe congestive heart failure. We will hold his ARB today and hopefully start that tomorrow. Discussed with patient that despite his opinion of what his diet should be, that he has severe congestive heart failure and that he needs to be on a healthy heart diet. Discussed with him that although he may be correct, it is highly improbable that the nursing staff, i.e. 2 different RNs and 2 different techs, are lying stating that he is demanding a regular diet and refusing to eat a healthy heart diet. Discussed with him that is an easy fix, that if they are in fact not speaking the truth then he will have no issues with remaining on a healthy heart diet. Discussed with patient in very explicit terms the use of cocaine given his severe congestive heart failure will lead to a short-term but definite early . cc: Adalberto Ng MD
[2018-03-22] MEDS: NORCO-7.5 PO PRN ×3 (01:23→16:47)
--- NOTE | 2018-03-22 01:32 | PROGRESS NOTE ---
DATE: 03/21/2018 SUBJECTIVE: Patient this morning is in no distress. He has multiple vague complaints. Still having swelling in his lower extremities. PHYSICAL EXAMINATION: Vital Signs: Reviewed. He is afebrile. Temperature 98.1 degrees, pulse 94, respiratory 20, BP 111/61. General: Patient is in no respiratory distress. Neck: Supple. No JVD. CARDIOVASCULAR: Regular rate. Chest: No crackles. No wheezing. Equal air movement. Abdomen: Soft, nondistended. Extremities: Moves all extremities. He has 2+ edema bilateral lower extremities. Skin: Warm, dry. No rashes. ASSESSMENT: 1. Severe congestive heart failure with an ejection fraction of 16%. 2. Chest pain. He just had a negative stress test. 3. Medical noncompliance. Again, discussed with patient that it is highly unlikely that he is cocaine positive simply by riding a car with individuals. However, even if that is the case discussed with him that it would be in his best interest to no longer get in that car. Discussed that he has a choice to be around it and certainly a choice to use it. 4. Medical noncompliance. Patient threatened to leave AMA today if his pain medicine was not increased. Discussed with patient that is not an option, that we will not go back to IV pain medication and is well within his right to leave the hospital against medical advice if he so deems necessary. However, threatening to leave will not increase his pain medication requirement or usage while he is in the hospital. PLAN: We will consult Cardiology. Patient does have severe congestive heart failure. Unfortunately, he has been quite recalcitrant to treatment, care or follow-up. He has continued to use drugs as noted by multiple hospitalizations with cocaine positive urine drug screen. We have started him on Entresto. We will continue to follow. Have increased his Lasix to 80 IV twice daily and continued his Aldactone 25 twice daily. We will recheck labs in the a.m. cc: Adalberto Ng MD
--- NOTE | 2018-03-22 01:58 | CARDIOLOGY CONSULTATION ---
DATE: 03/21/2018 CHIEF COMPLAINT ON PRESENTATION: Shortness of breath. HISTORY OF PRESENT ILLNESS: Mr. Nathan is a 47-year-old male with a history of a nonischemic cardiomyopathy, who presented for evaluation of shortness of breath. It seems like it has been ongoing for several days. In addition, he has had a significant amount of lower extremity edema. He reports compliance with his medications, as well as avoidance of all illicit substances, including marijuana and cocaine. However, he has had multiple positive cocaine screens over the last several months. He is markedly edematous. Denies any orthopnea, and denies any pain complaints. The patient has denied any fevers. He has had no recent issues with cough. PAST MEDICAL HISTORY: 1. Significant for a nonischemic cardiomyopathy. His last cardiac catheterization was in September 2016. That showed normal left main. Left anterior descending and circumflex vessel have minor luminal irregularities. There was a widely patent stent in the diagonal branch. The right coronary had minor luminal irregularities. The LVEDP on that study was 12. 2. AICD implantation. SOCIAL HISTORY: Previous tobacco use. Apparently, he has been positive for cocaine over several drug screens in the last 6 months. He adamantly denies illicit drug use, despite this. FAMILY HISTORY: Mother has a history of CHF, as well as colitis. REVIEW OF SYSTEMS: A 10-system review of systems is negative, except for those mentioned in the HPI. PHYSICAL EXAMINATION: Vital Signs: He is afebrile. His heart rate is 95. His blood pressure is 134/72. On presentation, his blood pressure was 106/75. His I's and O's over the course of the hospitalization seem negative, although the patient has been voiding, and not measuring. General: He is in no acute distress. HEENT: Oropharynx is moist. He has poor dentition. His eye examination shows pink conjunctivae, white sclerae. Neck: Examination shows no obvious thyromegaly or thyroid tenderness. Cardiovascular: He was found to be in a regular rate and rhythm. He has no obvious murmurs. He has no S3. He has a difficult to assess JVP. He has marked bilateral lower extremity edema, and what seems like warm and well-perfused lower extremity. Chest: His chest exam has mild rales in the bases. He has no increased work of breathing. Abdomen: Soft, nontender. He has no obvious organomegaly. Skin: Warm and dry throughout, without any rashes. Neurological: He is moving all extremities well. He has no lateralizing deficits. Psychiatric: He is alert and oriented, pleasant. Normal mood and affect. PERTINENT DATA: His EKG on the at 11:32 showed sinus tach, 106 beats per minute, mild nonspecific ST-T changes. He has what appears to be Q-waves in the inferior leads. EKG on the again demonstrate sinus tach, rate of 105 beats per minute, suggestion of Q-waves in the inferior leads. Again, he had a cardiac cath done in September 2016. At that time, he had persistent Q-waves in the inferior leads, and the EKG was basically unchanged. He had a myocardial perfusion scan on this study, demonstrating a severely dilated left ventricle, with an end-diastolic volume of 443. His ejection fraction was 16%. He had severe defects in the basal anterior wall of the left ventricle, the inferior wall of the left ventricle, and apical thinning as well. His laboratory data shows a white count of 7.9, hematocrit 41. His platelet count is 213,000. His sodium is 137, potassium 3.8, his BUN is 17, with a creatinine of 1.5. His proBNP was 4558, with negative cardiac enzymes. UDS was positive for cocaine. ASSESSMENT: Mr. Nathan is a 47-year-old gentleman with a nonischemic cardiomyopathy. PLAN: His EKG is unchanged. He is not having any chest pain. He seems to be in volume overload/heart failure. This is likely secondary to a combination of noncompliance with medications, likely noncompliance with diet, as well as noncompliance with avoidance of cocaine. I agree with the IV Lasix that he is on. I have instructed the patient to use the urinal, do not dump it, so that we can measure his I's and O's. I agree with the addition of Entresto and Aldactone. Hopefully, the patient will be compliant. We will continue to follow. cc: MD Adalberto Dove MD
[2018-03-22 11:40] LABS: HEMATOCRIT 42.3 % (42.0-52.0); HEMOGLOBIN 12.7 g/dL (14.0-18.0); MCV 89.8 FL (81-99); MPV 9.9 FL (7.4-10.4); RBC 4.71 XMIL (4.7-6.1); RDW 18.4 % (11.5-14.5); WBC 7.58 X1000 (4.8-10.8)
[2018-03-22 11:48] LABS: AGAP 8; ALKALINE PHOSPHATASE 105 U/L (32-122); BUN 15 mg/dL (8-22); CALCIUM 8.4 mg/dL (8.8-10.2); CHLORIDE 100 mmol/L (98-107); COSMO 284; ESTIMATED GFR > 60; GLUCOSE 98 mg/dL (70-104); GOT 19 U/L (10-34); GPT 11 U/L (10-44); POTASSIUM 3.2 mmol/L (3.5-5.1); SODIUM 142 mmol/L (136-145); TCO2 35 mmol/L (25-35); TOTAL PROTEIN 5.5 g/dL (6.3-8.3)
[2018-03-22] MEDS: LASIX IV SCH ×2 (14:12→21:32)
[2018-03-22] MEDS: ENTRESTO 24 MG-26 MG TABLET PO SCH ×2 (14:12→21:32)
[2018-03-22] MEDS: ALDACTONE PO SCH ×2 (14:12→21:32)
[2018-03-22] MEDS ORDERED: KLOR-CON PO ONE (17:39)
[2018-03-23] MEDS: NORCO-7.5 PO PRN ×2 (01:25→09:21)
[2018-03-23 07:54] LABS: HEMATOCRIT 45.8 % (42.0-52.0); HEMOGLOBIN 13.6 g/dL (14.0-18.0); MCH 26.6 PG (27-31); MCHC 29.7 g/dL (33-37); MCV 89.6 FL (81-99); MPV 9.2 FL (7.4-10.4); RBC 5.11 XMIL (4.7-6.1); RDW 18.9 % (11.5-14.5); WBC 8.28 X1000 (4.8-10.8)
[2018-03-23 08:10] LABS: AGAP 10; ALBUMIN 3.4 g/dL (3.5-5.0); ALKALINE PHOSPHATASE 119 U/L (32-122); BUN 16 mg/dL (8-22); CALCIUM 8.9 mg/dL (8.8-10.2); CHLORIDE 97 mmol/L (98-107); COSMO 283; CREATININE 1.1 mg/dL (0.7-1.2); ESTIMATED GFR > 60; GLUCOSE 102 mg/dL (70-104); GOT 22 U/L (10-34); GPT 13 U/L (10-44); MAGNESIUM 1.9 mg/dL (1.5-2.7); POTASSIUM 3.4 mmol/L (3.5-5.1); SODIUM 141 mmol/L (136-145); TCO2 33 mmol/L (25-35); TOTAL PROTEIN 6.3 g/dL (6.3-8.3)
[2018-03-23 08:33] VITALS: BP 123/86
[2018-03-23] MEDS: LASIX IV SCH (09:04)
[2018-03-23] MEDS: ENTRESTO 24 MG-26 MG TABLET PO SCH (09:05)
[2018-03-23] MEDS: ALDACTONE PO SCH (09:05)
--- NOTE | 2018-03-23 15:00 | PROGRESS NOTE ---
DATE: 03/22/2018 SUBJECTIVE: Patient seen and examined by myself on the thirty-first. He currently has no new complaints. In fact, states that he actually feels as though he is feeling better since he has started Entresto. Notes he is having increased urine output. OBJECTIVE: Vital Signs: Temperature 97.8 degrees, pulse 88, respiratory 20, BP 132/87. General: Patient is awake, alert. He is currently in no respiratory distress. HEENT: Normocephalic. Neck: Supple. CV: Regular rate. Decreased breath sounds. Chest: Decreased bilaterally. No current crackles, no wheezing. Abdomen: Soft. Extremities: Moves all extremities. He has 2+ edema in his lower extremities, but less than yesterday's exam. ASSESSMENT: 1. Congestive heart failure with exacerbation. Clinically, patient appears to be improving. His intakes and outputs are not accurate. This is more so due to patient's continued persistence on not measuring his urine output or his oral intake. This is despite multiple conversations from the staff. 2. Frequent anger outbursts. Patient continues to create havoc with dietary staff because he is refusing to eat a healthy heart diet, as well as he is persistent in the fact that he believes the hospital should provide him, his and his child about 3 meals a day while he is in the hospital. 3. Coronary artery disease. Patient has severe coronary artery disease, most likely secondary to his noncompliance. He has recurrent cocaine usage, chronic tobacco abuse, etc. 4. Chronic cocaine use. Patient again is adamant that he was not using cocaine. He was simply in a car with others that were. 5. Hypertension. Blood pressure is stable with Entresto. 6. High cholesterol. 7. Other. PLAN: We will continue patient in the hospital today. Continue on Lasix, Entresto, Aldactone. Continue to discuss with patient the importance of medical compliance and will follow. cc: Adalberto Ng MD
--- NOTE | 2018-03-23 20:23 | DISCHARGE SUMMARY ---
ADMISSION DATE: 03/18/2018 DISCHARGE DATE: 03/23/2018 DISCHARGE DIAGNOSES: 1. Congestive heart failure with exacerbation. 2. Coronary artery disease. The patient has had a stress test. He has not had an acute myocardial infarction. 3. Chronic chest pain. 4. Chronic medical noncompliance. 5. Chronic cocaine usage, or at least chronically positive drug screens, even though the patient states that he has not been using and abusing. 6. Chronic tobacco abuse. 7. Others. 8. Hypertension. CONSULTATIONS: Cardiology. PROCEDURES: Stress test. The patient had a nonreversible large scar with an EF of approximately 16%. BRIEF HOSPITAL COURSE: The patient is a 47-year-old male who presents to the hospital, presumed with congestive heart failure symptoms. He was admitted to the hospital. He was having chest pain. The patient was adamant that he needed morphine because that is the treatment for chest pain. This was started on the first night. As his enzymes were negative, his morphine was stopped, and it was switched to [place]. Discussed with the patient that morphine is only used for an acute coronary syndrome and is not used for chronic symptoms. Also discussed with the patient that he apparently has gone to several different physicians in several different cities over the past several months and has gotten several prescriptions for narcotics. Discussed that that would give someone the impression that he could be having issues with narcotics. Discussed with patient that his drug screen was positive for cocaine. The patient was adamant that the previous time it was positive was because he was in a hotel room and it was coming through the vent from people next door using cocaine. This time it was because people were in his car using cocaine, but he was not using. Discussed with patient that although each of those scenarios would be unusual, it could possibly be true, but the easiest response is to move rooms or to tell the people to get out of your car. The patient had a quite eventful hospital stay, more from an emotional and social standpoint. He and his significant other had quite frequent altercations. The patient also had quite frequent altercations with the hospital staff, the janitorial staff, and the dietary staff. Discussed with patient that I will not change him to a regular diet, that he has severe stage IV [employer] heart disease, and that he needs to maintain a low-salt, low-volume diet. If this was unacceptable to him, discussed that it was well within his right to check out of the hospital AMA. Cardiology was consulted, with the patient's severe CHF. No medications were changed. He was on Aldactone twice a day and Lasix twice a day, and I had already started him on Entresto. DISPOSITION: Patient will be discharged home with prescriptions for his Lasix, Aldactone, Entresto and Crestor. We did not write narcotics, as the patient seems to go multiple places to get these filled. Discussed with him that he needs to follow a regular diet and follow up with cardiology. Again discussed with the patient that he is not my patient. I have seen him in the hospital, but we will not follow him as an outpatient in the clinic. DISCHARGE CONDITION: The patient thankfully is improving. He states he is having a good urine output, but unfortunately, he refuses to measure his urine output. Greater than 30 minutes was spent in total care. cc: Adalberto Ng MD
--- NOTE | 2018-03-24 17:19 | HISTORY AND PHYSICAL ---
CHIEF COMPLAINT: Shortness of breath. HISTORY OF PRESENT ILLNESS: Patient is a 47-year-old male who unfortunately has a significant history of noncompliance. Presented to the hospital with increased cough, congestion, shortness of breath, increased work of breathing, states he was having chest pain left-sided with no radiation. Denies any fevers or chills. SOCIAL HISTORY: Patient is , he is on disability, lives at home in [place], he denies illicit substance use, does have a long history of smoking. ALLERGIES: Penicillin, atropine causing anaphylaxis, Toradol causing rash, latex rash, Levaquin unknown and Ativan. MEDICATIONS: Norvasc 2.5 twice a day, aspirin, Cozaar 100, Plavix 75, DuoNeb , Xanax 2 mg twice daily, Pepcid, Crestor 10, Coreg 6.125 twice daily, hydrocodone q.4 p.r.n., bumetanide b.i.d., Zaroxolyn 2.5 daily, spironolactone 25 daily and tramadol. PAST MEDICAL HISTORY: Significant for known coronary artery disease, angina, congestive heart failure severe, hypertension, hyperlipidemia, has had heart attack, he has cardiomyopathy with ejection fraction 20%, history of COPD, chronic pain, chronic anxiety, PTSD. He has had cardiac stenting, pacemaker placement. FAMILY HISTORY: Not positive for coronary artery disease at early ages. PHYSICAL: Temperature 98, pulse 95, respiratory 20, BP 139/90, saturation 99% on 2 L.General: Patient is awake, alert he is currently in no respiratory distress, pleasant to talk with. HEENT: Normocephalic. Neck: Supple. CV: Regular rate. Chest: Decreased breath sounds, no current crackles or wheezing. Abdomen: Soft. Extremities: Moves all extremities. Neuro: No focal neurological changes. Skin: Warm, dry, no rashes. He does have 2+ edema bilateral lower extremities. LABS: Reviewed . ASSESSMENT: 1. Congestive heart failure with exacerbation . 2. Chest pain, will rule out myocardial infarction . 3. Hypertension. 4. Known coronary artery disease. 5. High cholesterol. 6. Medical noncompliance. PLAN: Will admit patient the hospital, rule out ND. Will consider stress testing in the a.m. will restart his home medications once they are confirmed and will follow. cc: Adalberto Ng MD
== END 2018-03-23 13:51 | disposition home or self-care (01) | DRG 293 ==
LOC: P.MEDSURG 18:36 → P.ED 18:36 → SUATTDRO 21:58 → OBSVTOIN 21:58
PROVIDERS: ADMIT Family Medicine; ATTEND Family Medicine
CPT/HCPCS: 71020; 71046; 78452; 80053; 80101; 80104; 80301; 80305; 80307; 80324; 80345; 80346; 80353; 80358; 80361; 80365; 81001; 82550; 83735; 83880; 83992; 84484; 85025; 85027; 87088; 87275; 87276; 87804; 93005; 93010; 93017; 94640; 94760; 94761; 96374; 96375; 99283; 99285; A9270; A9500; G0431; G0434; G0477; G0479; G0480; J0280; J0820; J1940; J2270; J2405; J2785

== ENCOUNTER 2018-04-19 17:22 | Inpatient (IN) ==
[2018-04-19] MEDS ORDERED: SOLU-MEDROL IV ONE (18:10)
[2018-04-19] MEDS ORDERED: DUONEB (A & A) INH ONE (18:11)
[2018-04-19] MEDS ORDERED: MORPHINE IV ONE (18:24)
[2018-04-19] MEDS ORDERED: LASIX IV ONE (18:24)
[2018-04-19 19:06] LABS: BASO# 0.02 X1000 (0.0-0.2); BASO% 0.2 % (0.0-0.8); EOS# 0.32 X1000 (0.0-0.7); EOS% 3.5 % (0.0-10.0); HEMATOCRIT 38.3 % (42.0-52.0); HEMOGLOBIN 11.9 g/dL (14.0-18.0); IMM GRAN# 0.01 X1000 (0.0-0.04); IMM GRAN% 0.1 % (0.0-0.5); LYMPH# 1.17 X1000 (1.2-3.4); LYMPH% 12.7 % (20.5-51.1); MCHC 31.1 g/dL (33-37); MCV 86.8 FL (81-99); MONO% 9.8 % (1.7-9.3); MPV 8.9 FL (7.4-10.4); NEUT# 6.77 X1000 (1.4-6.5); NEUT% 73.7 % (42.2-75.2); PLT 210 X1000 (130-400); RBC 4.41 XMIL (4.7-6.1); RDW 18.7 % (11.5-14.5); WBC 9.19 X1000 (4.8-10.8)
[2018-04-19 19:30] LABS: AGAP 12; ALBUMIN 3.3 g/dL (3.5-5.0); ALKALINE PHOSPHATASE 99 U/L (32-122); BUN 13 mg/dL (8-22); CALCIUM 8.6 mg/dL (8.8-10.2); CHLORIDE 99 mmol/L (98-107); COSMO 276; CREATININE 1.2 mg/dL (0.7-1.2); ESTIMATED GFR > 60; GLUCOSE 130 mg/dL (70-104); GOT 18 U/L (10-34); GPT 9 U/L (10-44); POTASSIUM 3.5 mmol/L (3.5-5.1); SODIUM 137 mmol/L (136-145); TCO2 26 mmol/L (25-35); TOTAL PROTEIN 6.2 g/dL (6.3-8.3)
[2018-04-19 19:32] LABS: URINE SOURCE CLEAN CATCH
[2018-04-19 19:34] LABS: BILIRUBIN URINE NEGATIVE (NEGATIVE); BLOOD URINE TRACE (NEGATIVE); CLARITY CLEAR (CLEAR); COLOR YELLOW; GLUCOSE URINE NEGATIVE (NEGATIVE); KETONE URINE NEGATIVE (NEGATIVE); NITRITE URINE NEGATIVE (NEGATIVE); PROTEIN URINE NEGATIVE (NEGATIVE); UROBILINOGEN URINE NORMAL
[2018-04-19 19:35] LABS: LEUKOCYTES URINE 1+ (NEGATIVE)
[2018-04-19 19:38] LABS: URINE BACTERIA 1+ /HFP; URINE CAST NONE SEEN /LPF; URINE CRYSTAL NONE SEEN /HPF; URINE EPITHELIAL CELLS >10 /HPF (<10); URINE RBC <10 /HPF (<10); URINE WBC <10 /HPF (<10); URINE YEAST NONE SEEN /HPF
--- NOTE | 2018-04-19 20:11 | Diag Imaging Result Doc PS360 ---
EXAM: CHEST-2 VIEWS - 04/19/2018 HISTORY: sob TECHNIQUE: Chest two views COMPARISON: 03/26/2018 portable chest and 03/18/2018 chest two views FINDINGS: There is cardiomegaly similar to prior. There is transvenous cardiac pacemaker again seen. Mild prominence of interstitial markings, similar to the 03/18/2018 exam. There is no dense consolidation, substantial pleural effusion, or pneumothorax identified. IMPRESSION: Cardiomegaly similar to prior. Mild prominence of interstitial markings. Electronically signed by Barrera Arroyo 04/19/2018 8:08 PM
[2018-04-19] MEDS ORDERED: TYLENOL WITH CODEINE #4 PO ONE (20:15)
[2018-04-19] MEDS ORDERED: LABETALOL IV ONE (20:20)
[2018-04-19] MEDS ORDERED: TYLENOL WITH CODEINE #3 ONE (20:28)
[2018-04-19] MEDS ORDERED: KLONOPIN PO ONE (21:57)
[2018-04-20] MEDS ORDERED: NORCO-10 PO PRN (00:22)
[2018-04-20 07:47] VITALS: BP 134/103
--- NOTE | 2018-04-20 08:38 | EKG Report ---
Test Performed on : 04/19/2018 5:27:17 PM Test Reason : sob Blood Pressure : / mmHG Vent. Rate : 109 BPM Atrial Rate : 109 BPM P-R Int : 166 ms QRS Dur : 098 ms QT Int : 348 ms P-R-T Axes : 068 -51 097 degrees QTc Int : 468 ms Sinus tachycardia. with occasional premature ventricular complexes. Possible Left atrial enlargement Left axis deviation Inferior infarct , age undetermined Abnormal ECG When compared with ECG of 26-MAR-2018 05:40, (Unconfirmed) premature ventricular complexes. are now present Unconfirmed Result
--- NOTE | 2018-04-21 14:15 | HISTORY AND PHYSICAL ---
HISTORY OF PRESENT ILLNESS: Patient was admitted through the ER. He is not a long-term patient. He was seen in hospitalist capacity. He has not followed up in my office, and he was instructed on his last discharge that he is not my patient and should not seek follow up in the office. He needs to find a different provider. The patient presented with apparent shortness of breath. He was not seen in the ER nor in the hospital by myself as he left AMA prior to my arrival. Does have a known extensive history of medical noncompliance, as well as multiple cocaine-positive drug screens. As patient left prior to my arrival, no hospital plans or discharge plans were able to be performed. cc: Adalberto Ng MD
--- NOTE | 2018-04-21 18:56 | DISCHARGE SUMMARY ---
ADMISSION DATE: 04/19/2018 DISCHARGE DATE: 04/20/2018 HOSPITAL COURSE: Patient was not seen by myself in the ER or during the hospital stay as he left prior to my arrival. Therefore no discharge instructions or plans or medications were able to be performed. Unfortunately Mr. Nathan has noted multiple times on previous admissions and discharges his an intentionally noncompliant individual who is unfortunately frequently vile and abusive on multiple occasions to the staff. This time appears to have been no different than previous admissions. He was admitted with shortness of breath, became very angry, refused any resemblance of care and then left AMA. Again as of note patient is not a chronic clinic patient of my office. He has never followed up in the office and has been instructed on several occasions that I am not his primary care physician and he will need to find other offices to attempt to follow up with. cc: Adalberto Ng MD
--- NOTE | 2018-04-23 15:29 | PROVIDER DOCUMENTATION ---
This chart was entered by Jess Luis Scribe, acting as scribe for Cesar Rosas MD. HPI-General Adult - General Chief Complaint: Shortness of Breath Stated Complaint: CP Time Seen by Provider: 04/19/18 18:08 Source: patient Allergies/Adverse Reactions: Patient Allergies Allergy/AdvReac Type Severity Reaction Status Date / Time Penicillins Allergy Intermediate Unknown Verified 03/10/18 06:03 amoxicillin Allergy Unknown Unknown Verified 03/10/18 06:03 atropine Allergy ANAPHYLAXIS Verified 03/10/18 06:03 ketorolac [From Toradol] Allergy RASH Verified 03/10/18 06:03 Latex, Natural Rubber Allergy RASH Verified 03/10/18 06:03 levofloxacin [From Levaquin] Allergy ITCHING Verified 03/10/18 06:03 lorazepam [From Ativan] AdvReac Unknown Verified 03/10/18 06:03 Home Medications: Home Medication List Medication Instructions Recorded Confirmed Last Taken Type Aspirin EC 1 each PO QHS #90 tablet 10/07/16 04/20/18 03/09/18 09:00 Rx Albuterol 2.5MG/Ipratrop 0.5MG 3 ml INH RTQ6H #120 neb 09/07/17 04/20/18 Rx [Duoneb (A & A)] Hydrocodone Bit/Acetaminophen 10 mg PO Q6H PRN PRN 01/08/18 04/20/18 02/23/18 History [Hydrocodon-Acetaminophn 10-325] Nitroglycerin Sl [Nitroglycerin] 0.4 mg SL Q5M PRN PRN #30 tab 03/20/18 Unknown Rx Albuterol Sulfate [Proair Hfa] 2 puff IN Q4H PRN PRN #1 hfa.aer.ad 03/23/1803/10 Unknown Rx Amlodipine [Norvasc] 2.5 mg PO BID #60 tab 03/23/18 04/20/18 Unknown Rx Clopidogrel Bisulfate [Plavix] 75 mg PO DAILY #90 tab 03/23/18 04/20/18 Unknown Rx Famotidine 80 mg PO BID #60 tab 03/23/18 04/20/18 Unknown Rx ROSUVAstatin [Crestor] 10 mg PO DAILY #30 tab 03/23/18 04/20/18 Unknown Rx Sacubitril/Valsartan [Entresto 24 1 ea PO BID #60 tab 03/23/18 04/20/18 Unknown Rx mg-26 mg Tablet] Spironolactone [Aldactone] 25 mg PO BID tablet 03/23/18 04/20/18 Unknown Rx Alprazolam [Xanax] 2 mg PO PRN PRN 04/20/18 04/20/18 Unknown History Carvedilol [Coreg] 12.5 mg PO DAILY 04/20/18 04/20/18 Unknown History Furosemide [Lasix] 80 mg PO BID 04/20/18 04/20/18 Unknown History Nitroglycerin [Nitroglycerin 1 spray SL Q5M PRN 04/20/18 04/20/18 Unknown History Lingual [place]] Potassium Chloride [Klor-Con M20] 80 meq PO BID 04/20/18 04/20/18 Unknown History - History of Present Illness -Gen Adult Nature of Presenting Problems: pt is a 47 yr old male presenting with 4 day complaint of worsening shortness of breath, chest pain, fluid retention. pt reports he was admitted in [place] x 9 day beginning 04/05 for same. pt was out of home o2 and shortness of breath worsened. pt reports he has gained 22lbs in 4 days due to fluid retention, pt not taking Lasix. pt very agitated during exam, pt demands pain medication Review of Systems - Adult - REVIEW OF SYSTEMS - ADULT Constitutional: reports: fatique, weight gain (22lbs x 4 days) Eyes: reports: no symptoms reported Ears, Nose, Mouth & Throat: reports: no symptoms reported Cardiovascular: reports: chest pain, edema. denies: palpitations, syncope Respiratory: reports: cough, dyspnea on exertion, shortness of breath Gastrointestinal: reports: abdominal pain, nausea, vomiting. denies: diarrhea Genitourinary: reports: no symptoms reported Musculoskeletal: reports: no symptoms reported Integumentary: reports: no symptoms reported Neurological: denies: dizziness/vertigo, headache/migraines, syncope Psychiatric: reports: no symptoms reported Endocrine: reports: no symptoms reported Hematologic/Lymphatic: reports: no symptoms reported Allergic/Immunologic: reports: no symptoms reported All Other Systems: Reviewed and Negative Past History - Adult - PAST MEDICAL HISTORY-ADULT Review of Records: reports: Old Records Reviewed, Nursing Assessment Review, Medications Reviewed, Social history reviewed & non-contributory. Major Childhood Illnesses: reports: denies history Cardiovascular: reports: cardiac disease, angina, CAD, CHF, HTN, hyperlipidemia , [place], pacemaker, other (cardiomyopathy/ 20% ejection fraction) Respiratory: reports: COPD Gastrointestinal: reports: denies history Obstetrical/Gynecological: reports: denies history Genitourinary: reports: denies history Musculoskeletal: reports: chronic pain Neurological: reports: denies history Psychiatric: reports: anxiety, ptsd Endocrine/Immune: reports: denies history Other Conditions: reports: denies history - PRIOR SURGERIES/PROCEDURES Surgical/Procedure History: reports: reviewed, not pertinent, cardiac stent, pacemaker - IMMUNIZATION STATUS Childhood Immunizations: See Nurse Assessment Flu Vaccine: See Nurse Assessment - FAMILY HISTORY Family History: CAD under 55yo - SOCIAL HISTORY Smoking: quit less than 1 year Substance Use: alcohol Alcohol Use Frequency: occasionally Living Situation: family Physical Exam-General - PHYSICAL EXAM-ADULT Initial Vital Signs Reviewed: Yes - CONSTITUTIONAL General Appearance: alert, moderate distress, obese - EYES Eyes: PERRL/EOMI - HEAD, EARS, NOSE, MOUTH & THROAT HENMT: normocephalic/atraumatic, moist mucous membranes, normal ENT inspection - NECK Neck: non-tender, full range of motion, supple, normal inspection - RESPIRATORY Respiratory: chest non-tender, lungs clear, normal breath sounds - CARDIOVASCULAR Cardiovascular: normal peripheral pulses, tachycardia - GASTROINTESTINAL (ABDOMEN) Abdominal Exam: normal bowel sounds, non tender, soft - LYMPHATIC Lymphatic: no adenopathy - MUSCULOSKELETAL Back Exam: normal inspection, no CVA tenderness, no vertebral tenderness Extremity: normal range of motion, normal gait, other (3+ pitting pretibial edema bilaterally) - SKIN Integumentary: normal color, normal turgor, warm/dry - NEUROLOGIC Neurologic: grossly normal - PSYCHIATRIC Psych/Mental Status: normal mood/affect, normal thought content, normal thought process, oriented x 3 Progress - PLAN OF CARE/RESULTS Progress/Plan/Lab Results: Vital Signs - 8 hr 04/19/18 17:24 Temperature 99.1 F Pulse Rate 110 H Respiratory Rate 28 H Blood Pressure 150/105 O2 Sat by Pulse Oximetry 95 Orders Category Date Time Status CHEST-2 VIEWS [RAD] Stat Exams 04/19/18 18:10 Ordered CBC WITH ELECTRONIC DIFF [HEME] Stat Lab 04/19/18 18:09 Uncollected CK PROFILE [SP CHEM] Stat Lab 04/19/18 18:10 Ordered COMPREHENSIVE METABOLIC PANEL [CHEM] Stat Lab 04/19/18 18:10 Uncollected PRO B-NATRIURETIC PEPTIDE Stat Lab 04/19/18 18:10 Uncollected TROPONIN T Stat Lab 04/19/18 18:10 Ordered URINALYSIS W/POSS RFLX CULT [URINALYSIS] Stat Lab 04/19/18 18:10 Uncollected Albuterol 2.5MG/Ipratrop 0.5MG [Duoneb (A & A)] Med 04/19/18 18:11 Discontinued 3 ml INH NOW ONE Methylprednisolone Sod Succ [Solu-Medrol] Med 04/19/18 18:10 Discontinued 60 mg IV NOW ONE Aerosol Treatments Routine Oth 04/19/18 18:11 Active Aerosol Treatments Stat Oth 04/19/18 18:11 Active EKG [EKG] Stat Ther 04/19/18 18:10 Ordered Result Diagrams: 04/19/18 18:57 04/19/18 18:57 - XRAY 1 XRAY Study: Chest Impression: Abnormal ( EXAM: CHEST-2 VIEWS - 04/19/2018 HISTORY: sob TECHNIQUE: Chest two views COMPARISON: 03/26/2018 portable chest and 2018 chest two views FINDINGS: There is cardiomegaly similar to prior. There is transvenous cardiac pacemaker again seen. Mild prominence of interstitial markings, similar to the 03/18/2018 exam. There is no dense consolidation, substantial pleural effusion, or pneumothorax identified. IMPRESSION: Cardiomegaly similar to prior. Mild prominence of interstitial markings. Electronically signed by Barrera Arroyo 04/19/2018 8:08 PM 04/19/182007 Interpreting Physician: Barrera Arroyo MD Dictated Date/Time: 04/19 cc: Cesar Rosas MD; Adalberto Ng MD) Comparison with other Films: no changes (03/26/18, 03/18/18) - CONSULTS/PCP/HOSPITALIST Notification #1 *Consult/PCP/Hospitalist*: Dr Ng Time Discussed: 21:10 Reason/Comments: discussed plan of care for pt admit Consult Disposition: Admit Departure - Departure Date of Disposition Decision: 04/19/18 Time of Disposition Decision: 21:22 DIAGNOSIS: CHF (congestive heart failure), NYHA class IV Disposition: ADMITTED INPATIENT 09 Certified Medical Emergency: Emergent Condition: Stable - Critical Care Note This patient required my direct & personal management of CC.: No Attestation - Physician/ ELEONORA Attestation Patient care was provided by Advanced Practice Provider:: No The physician spent face to face time with patient:: Yes Advanced Practice Provider documentation review:: Supervising physician onsite and consulted in the evaluation and care of this patient. The physician did have a face to face encounter with the patient. This chart was documented by the indicated scribe, (Jses Luis, Cinthia) and accurately reflects the services I performed and decisions made by me, Cesar Rosas MD, as attested by the provider's signature.
== END 2018-04-20 08:34 | disposition left against medical advice (07) | DRG 204 ==
LOC: P.ED 17:22 → P.MEDSURG 21:57
PROVIDERS: ATTEND Family Medicine
CPT/HCPCS: 71020; 71046; 80053; 81001; 82550; 83880; 84484; 85025; 87088; 93005; 94640; 94761; 96374; 99285; A9270; J1940; J2270; J2930

== ENCOUNTER 2018-05-12 16:37 | Inpatient (IN) ==
[2018-05-12] MEDS ORDERED: ASPIRIN PO ONE (16:40)
[2018-05-12] MEDS ORDERED: MORPHINE IV ONE (17:16)
[2018-05-12] MEDS ORDERED: LASIX IV ONE (17:17)
[2018-05-12] MEDS ORDERED: NITROGLYCERIN TOP ONE (17:18)
[2018-05-12 17:28] LABS: BASO# 0.08 X1000 (0.0-0.2); EOS# 0.16 X1000 (0.0-0.7); EOS% 1.9 % (0.0-10.0); HEMATOCRIT 40.2 % (42.0-52.0); HEMOGLOBIN 12.6 g/dL (14.0-18.0); IMM GRAN# 0.02 X1000 (0.0-0.04); IMM GRAN% 0.2 % (0.0-0.5); LYMPH# 1.76 X1000 (1.2-3.4); MCH 26.5 PG (27-31); MCHC 31.3 g/dL (33-37); MCV 84.6 FL (81-99); MONO# 0.59 X1000 (0.11-0.59); MPV 9.9 FL (7.4-10.4); NEUT# 5.79 X1000 (1.4-6.5); NEUT% 68.9 % (42.2-75.2); PLT 272 X1000 (130-400); RBC 4.75 XMIL (4.7-6.1); RDW 19.6 % (11.5-14.5)
[2018-05-12 17:42] LABS: INR 1.14; PROTIME 15.2 Seconds (11.0-16.0)
[2018-05-12 17:43] LABS: PTT 33.5 Seconds (22.3-41.8)
[2018-05-12 17:47] LABS: AGAP 15; ALBUMIN 3.4 g/dL (3.5-5.0); ALKALINE PHOSPHATASE 110 U/L (32-122); BUN 11 mg/dL (8-22); CALCIUM 8.1 mg/dL (8.8-10.2); CHLORIDE 93 mmol/L (98-107); CK PROFILE 177 U/L (24-204); COSMO 272; ESTIMATED GFR > 60; GLUCOSE 176 mg/dL (70-104); GOT 23 U/L (10-34); GPT 12 U/L (10-44); POTASSIUM 3.2 mmol/L (3.5-5.1); SODIUM 134 mmol/L (136-145); TCO2 27 mmol/L (25-35); TOTAL PROTEIN 6.4 g/dL (6.3-8.3)
[2018-05-12 17:52] LABS: BILIRUBIN URINE NEGATIVE (NEGATIVE); BLOOD URINE NEGATIVE (NEGATIVE); CLARITY CLEAR (CLEAR); COLOR YELLOW; GLUCOSE URINE NEGATIVE (NEGATIVE); KETONE URINE NEGATIVE (NEGATIVE); LEUKOCYTES URINE NEGATIVE (NEGATIVE); NITRITE URINE NEGATIVE (NEGATIVE); PROTEIN URINE NEGATIVE (NEGATIVE); UROBILINOGEN URINE NORMAL
[2018-05-12 18:00] LABS: UR AMPHETAMINES QUAL NONE DETECTED (NONE DETECT); UR BARBITUATES QUAL NONE DETECTED (NONE DETECT); UR BENZODIAZEPIN QUAL NONE DETECTED (NONE DETECT); UR CANNABINOIDS QUAL NONE DETECTED (NONE DETECT); UR COCAINE QUAL PRESUMPTIVE POSITIVE (NONE DETECT); UR METHADONE QUAL NONE DETECTED (NONE DETECT); UR METHAMPHETAMINE QUAL NONE DETECTED (NONE DETECT); UR OPIATES QUAL NONE DETECTED (NONE DETECT); UR OXYCODONE QUAL NONE DETECTED (NONE DETECT); UR PCP QUAL NONE DETECTED (NONE DETECT); UR PROPOXYPHENE QUAL NONE DETECTED (NONE DETECT); UR TCA QUAL NONE DETECTED (NONE DETECT)
--- NOTE | 2018-05-12 18:05 | Diag Imaging Result Doc PS360 ---
EXAM: CHEST-2 VIEWS INDICATION: cp TECHNIQUE: 2 views COMPARISON: 04/19/2018 FINDINGS: The lungs are grossly clear. There is no discrete pleural fluid collection or pneumothorax. There is a stable implanted defibrillator. There is stable cardiomegaly. Central vasculature is unremarkable. IMPRESSION: Stable cardiomegaly. No definite acute chest pathology. Electronically signed by Alphonse Mittal 05/12/2018 6:03 PM
[2018-05-12 18:08] LABS: URINE SOURCE CLEAN CATCH
[2018-05-12 18:09] LABS: URINE BACTERIA NEGATIVE /HFP; URINE CAST NONE SEEN /LPF; URINE CRYSTAL NONE SEEN /HPF; URINE EPITHELIAL CELLS <10 /HPF (<10); URINE RBC <10 /HPF (<10); URINE WBC <10 /HPF (<10); URINE YEAST NONE SEEN /HPF
[2018-05-12] MEDS ORDERED: KLOR-CON PO ONE (18:20)
[2018-05-12] MEDS ORDERED: APRESOLINE IV PRN (21:14)
[2018-05-12] MEDS ORDERED: DUONEB (A & A) INH PRN (23:30)
[2018-05-12] MEDS: DUONEB (A & A) INH PRN (23:43)
[2018-05-12] MEDS: NORCO-10 PO PRN (23:56)
[2018-05-12] MEDS: NITROGLYCERIN TOP SCH (23:58)
[2018-05-13] MEDS: NITROGLYCERIN TOP SCH ×5 (00:08→21:36)
[2018-05-13] MEDS: ROBITUSSIN-DM PO PRN ×2 (00:29→05:20)
[2018-05-13] MEDS: MELATONIN PO PRN (01:08)
--- NOTE | 2018-05-13 02:01 | PROVIDER DOCUMENTATION ---
This chart was entered by Maranda Alfaro Scribe, acting as scribe for Rosa Huerta MD. HPI-Chest Pain - General Chief Complaint: Chest Pain Stated Complaint: CHEST PAINS/SOB Time Seen by Provider: 05/12/18 16:47 Source: patient, old records Allergies/Adverse Reactions: Patient Allergies Allergy/AdvReac Type Severity Reaction Status Date / Time Penicillins Allergy Intermediate Unknown Verified 03/10/18 06:03 amoxicillin Allergy Unknown Unknown Verified 03/10/18 06:03 atropine Allergy ANAPHYLAXIS Verified 03/10/18 06:03 ketorolac [From Toradol] Allergy RASH Verified 03/10/18 06:03 Latex, Natural Rubber Allergy RASH Verified 03/10/18 06:03 levofloxacin [From Levaquin] Allergy ITCHING Verified 03/10/18 06:03 lorazepam [From Ativan] AdvReac Unknown Verified 03/10/18 06:03 Home Medications: Home Medication List Medication Instructions Recorded Confirmed Last Taken Type Aspirin EC 1 each PO QHS #90 tablet 10/07/16 05/12/18 03/09/18 09:00 Rx Hydrocodone Bit/Acetaminophen 10 mg PO Q6H PRN PRN 01/08/18 04/20/18 02/23/18 History [Hydrocodon-Acetaminophn 10-325] Nitroglycerin Sl [Nitroglycerin] 0.4 mg SL Q5M PRN PRN #30 tab 03/20/18 05/12/18 Unknown Rx Albuterol Sulfate [Proair Hfa] 2 puff IN Q4H PRN PRN #1 hfa.aer.ad 03/23/18 05/12/18 Unknown Rx Clopidogrel Bisulfate [Plavix] 75 mg PO DAILY #90 tab 03/23/18 05/12/18 Unknown Rx Famotidine 80 mg PO BID #60 tab 03/23/18 05/12/18 Unknown Rx Sacubitril/Valsartan [Entresto 24 1 ea PO BID #60 tab 03/23/18 05/12/18 Unknown Rx mg-26 mg Tablet] Spironolactone [Aldactone] 25 mg PO BID tablet 03/23/18 04/20/18 Unknown Rx Alprazolam [Xanax] 2 mg PO PRN PRN 04/20/18 04/20/18 Unknown History Carvedilol [Coreg] 6.25 mg PO BID 04/20/18 05/12/18 Unknown History Nitroglycerin [Nitroglycerin 1 spray SL Q5M PRN 04/20/18 04/20/18 Unknown Hi story Lingual [place]] Potassium Chloride [Klor-Con M20] 80 meq PO BID 04/20/18 05/12/18 Unknown History Albuterol 2.5MG/Ipratrop 0.5MG 3 ml INH Q4H PRN PRN 05/12/18 05/12/18 Unknown History [Duoneb (A & A)] Bumetanide [Bumex] 1 mg PO DAILY 05/12/18 05/12/18 Unknown History ROSUVAstatin [Crestor] 5 mg PO QHS 05/12/18 05/12/18 Unknown History - History of Present Illness-CP Nature of Presenting Problem: 48 y/o male presents to ED with dull/throbbing/sharp/stabbing sternal chest pain that radiates down L arm and SOB onset yesterday. Pt reports he has gained 20 lbs recently in fluid, despite taking his lasix as prescribed. Pt states he has hx CHF/COPD. Pt reports he took 6 nitro, 325 mg aspirin, and plavix at home with no relif from his symptoms. Pt states he last used cocaine 2 weeks ago. Pt is alert and oriented. Location: reports: substernal Chest Pain Radiation: reports: arms (L), back (mid) Quality of Pain: reports: dull, sharp, stabbing, throbbing Severity in ED: moderate Onset/Duration: 24 hours ago Timing: still present Context/Activities at Onset: reports: none Modifying Factors: improves with: nothing Associated Symptoms: reports: back pain (mid), shortness of breath Nitro Today/Relief: provided at home (0.4 mg x 6) Aspirin Treatment Today: 325 mg x 1, provided at home Prior Chest Pain/Cardiac Workup: reports: heart attack Similar Symptoms Previously?: Yes Recently Seen Here or By Another Healthcare Provider: No Review of Systems - Adult - REVIEW OF SYSTEMS - ADULT Constitutional: reports: no symptoms reported Eyes: reports: no symptoms reported Ears, Nose, Mouth & Throat: reports: no symptoms reported Cardiovascular: reports: see HPI Respiratory: reports: see HPI Gastrointestinal: reports: no symptoms reported Genitourinary: reports: no symptoms reported Neurological: reports: no symptoms reported Psychiatric: reports: anxiety Past History - Adult - PAST MEDICAL HISTORY-ADULT Review of Records: reports: Old Records Reviewed, Nursing Assessment Review, Medications Reviewed Major Childhood Illnesses: reports: denies history Cardiovascular: reports: cardiac disease, angina, CAD, CHF, HTN, hyperlipidemia, [place], pacemaker, other (cardiomyopathy/ 20% ejection fraction) Respiratory: reports: COPD Gastrointestinal: reports: denies history Obstetrical/Gynecological: reports: denies history Genitourinary: reports: denies history, kidney disease Musculoskeletal: reports: chronic pain Neurological: reports: denies history Psychiatric: reports: anxiety, ptsd Endocrine/Immune: reports: denies history Other Conditions: reports: denies history - PRIOR SURGERIES/PROCEDURES Surgical/Procedure History: reports: reviewed, not pertinent, cardiac stent, pacemaker, other (pericardial effusion) - IMMUNIZATION STATUS Childhood Immunizations: See Nurse Assessment Flu Vaccine: See Nurse Assessment - FAMILY HISTORY Family History: CAD under 55yo - SOCIAL HISTORY Smoking: quit greater than 1 year Substance Use: none presently/history of abuse, cocaine Alcohol Use Frequency: occasionally Living Situation: family Physical Exam-General - PHYSICAL EXAM-ADULT Initial Vital Signs Reviewed: Yes - CONSTITUTIONAL General Appearance: alert, mild distress - EYES Eyes: PERRL/EOMI - HEAD, EARS, NOSE, MOUTH & THROAT HENMT: normocephalic/atraumatic, moist mucous membranes, normal ENT inspection - NECK Neck: non-tender, full range of motion, supple - RESPIRATORY Respiratory: chest non-tender, lungs clear, normal breath sounds - CARDIOVASCULAR Cardiovascular: normal peripheral pulses, regular rate, rhythm, no edema, no murmur - GASTROINTESTINAL (ABDOMEN) Abdominal Exam: normal bowel sounds, non tender, soft - MUSCULOSKELETAL Extremity: other (+ pitting edema B/L LE up to below knee) - NEUROLOGIC Neurologic: grossly normal - PSYCHIATRIC Psych/Mental Status: normal thought content, oriented x 3, anxious - HEART Score HEART Score: History: Moderately Suspicious HEART Score: ECG: Normal HEART Score: Age: 45-65 Years HEART Score: Risk Factors for Atherosclerotic Disease: > or = 3 Risk Factors or History of Atherosclerotic Disease HEART Score: Troponin: < or = Normal Limit Total HEART Score:: 4 Progress - PLAN OF CARE/RESULTS Progress/Plan/Lab Results: Vital Signs - 8 hr 05/12/18 18:07 Pulse Rate 114 H Respiratory Rate 25 H Blood Pressure 134/104 O2 Sat by Pulse Oximetry 98 Laboratory Results - last 24 hr 05/12/18 05/12/18 05/12/18 17:20 17:20 17:20 WBC 8.40 RBC 4.75 Hgb 12.6 L Hct 40.2 L MCV 84.6 MCH 26.5 L MCHC 31.3 L RDW Std Deviation 19.6 H Plt Count 272 MPV 9.9 Immature Gran % (Auto) 0.2 Neut % (Auto) 68.9 Lymph % (Auto) 21.0 [place] % (Auto) 7.0 Eos % (Auto) 1.9 Baso % (Auto) 1.0 H Immature Gran # (Auto) 0.02 Neut # (Auto) 5.79 Lymph # (Auto) 1.76 [place] # (Auto) 0.59 Eos # (Auto) 0.16 Baso # (Auto) 0.08 Segmented Neutrophils Not Reportable PT INR PTT (Actin FS) Sodium 134 L Potassium 3.2 L Chloride 93 L Carbon Dioxide 27 Anion Gap 15 BUN 11 Creatinine 1.0 Estimated GFR/1.73 m2 > 60 BUN/Creatinine Ratio 11 Glucose 176 H Calculated Osmolality 272 Calcium 8.1 L Total Bilirubin 1.90 H AST 23 ALT 12 Alkaline Phosphatase 110 Creatine Kinase 177 Troponin T [id number]-G-Neeidtzbbed Pept 5321 H Total Protein 6.4 Albumin 3.4 L Globulin 3.0 Albumin/Globulin Ratio 1.0 Urine Source Urine Color Urine Clarity Urine pH Ur Specific Brandon Urine Protein Urine Ketones Urine Blood Urine Nitrite Urine Bilirubin Urine Urobilinogen Urine Microscopic RBC Urine WBC Urine Microscopic WBC Ur Epithelial Cells Urine Crystals Urine Bacteria Urine Casts Urine Yeast Urine Glucose Urine Opiates Screen Ur Oxycodone Screen Urine Methadone Screen U Propoxyphene Qual Ur Barbituates Screen Ur Tricyclics Screen Ur Phencyclidine Scrn Ur Amphetamines Screen U Methamphetamines Scrn U Benzodiazepines Scrn Urine Cocaine Screen U Cannabinoids Screen 05/12/18 05/12/18 05/12/18 17:20 17:20 17:30 WBC RBC Hgb Hct MCV MCH MCHC RDW Std Deviation Plt Count MPV Immature Gran % (Auto) Neut % (Auto) Lymph % (Auto) [place] % (Auto) Eos % (Auto) Baso % (Auto) Immature Gran # (Auto) Neut # (Auto) Lymph # (Auto) [place]rick # (Auto) Eos # (Auto) Baso # (Auto) Segmented Neutrophils PT 15.2 INR 1.14 PTT (Actin FS) 33.5 Sodium Potassium Chloride Carbon Dioxide Anion Gap BUN Creatinine Estimated GFR/1.73 m2 BUN/Creatinine Ratio Glucose Calculated Osmolality Calcium Total Bilirubin AST ALT Alkaline Phosphatase Creatine Kinase Troponin T 0.047 Wan-[id number]-Czdbtvzpbkg Pept Total Protein Albumin Globulin Albumin/Globulin Ratio Urine Source Urine Color Urine Clarity Urine pH Ur Specific Brandon Urine Protein Urine Ketones Urine Blood Urine Nitrite Urine Bilirubin Urine Urobilinogen Urine Microscopic RBC Urine WBC Urine Microscopic WBC Ur Epithelial Cells Urine Crystals Urine Bacteria Urine Casts Urine Yeast Urine Glucose Urine Opiates Screen NONE DETECTED Ur Oxycodone Screen NONE DETECTED Urine Methadone Screen NONE DETECTED U Propoxyphene Qual NONE DETECTED Ur Barbituates Screen NONE DETECTED Ur Tricyclics Screen NONE DETECTED Ur Phencyclidine Scrn NONE DETECTED Ur Amphetamines Screen NONE DETECTED U Methamphetamines Scrn NONE DETECTED U Benzodiazepines Scrn NONE DETECTED Urine Cocaine Screen PRESUMPTIVE POSITIVE A U Cannabinoids Screen NONE DETECTED 05/12/18 17:30 WBC RBC Hgb Hct MCV MCH MCHC RDW Std Deviation Plt Count MPV Immature Gran % (Auto) Neut % (Auto) Lymph % (Auto) [place] % (Auto) Eos % (Auto) Baso % (Auto) Immature Gran # (Auto) Neut # (Auto) Lymph # (Auto) [place] # (Auto) Eos # (Auto) Baso # (Auto) Segmented Neutrophils PT INR PTT (Actin FS) Sodium Potassium Chloride Carbon Dioxide Anion Gap BUN Creatinine Estimated GFR/1.73 m2 BUN/Creatinine Ratio Glucose Calculated Osmolality Calcium Total Bilirubin AST ALT Alkaline Phosphatase Creatine Kinase Troponin T [id number] Pept Total Protein Albumin Globulin Albumin/Globulin Ratio Urine Source CLEAN CATCH Urine Color YELLOW Urine Clarity CLEAR Urine pH 7.0 Ur Specific Brandon 1.000 Urine Protein NEGATIVE Urine Ketones NEGATIVE Urine Blood NEGATIVE Urine Nitrite NEGATIVE Urine Bilirubin NEGATIVE Urine Urobilinogen NORMAL Urine Microscopic RBC <10 Urine WBC NEGATIVE Urine Microscopic WBC <10 Ur Epithelial Cells <10 Urine Crystals NONE SEEN Urine Bacteria NEGATIVE Urine Casts NONE SEEN Urine Yeast NONE SEEN Urine Glucose NEGATIVE Urine Opiates Screen Ur Oxycodone Screen Urine Methadone Screen U Propoxyphene Qual Ur Barbituates Screen Ur Tricyclics Screen Ur Phencyclidine Scrn Ur Amphetamines Screen U Methamphetamines Scrn U Benzodiazepines Scrn Urine Cocaine Screen U Cannabinoids Screen Orders Category Date Time Status Admit - [facility] Routine AdmDCTranf 05/12/18 18:22 Active Apply Mechanical Device [QM] ORDERED Care 05/12/18 21:14 Active Cardiac Monitoring DIRECTED Care 05/12/18 16:41 Completed Oxygen Therapy- ED Nursing DIRECTED Care 05/12/18 16:41 Completed Saline Loc NOW Care 05/12/18 16:41 Completed Update & Confirm Home Medicati ROUTINE Care 05/12/18 21:14 Active Z-Document. for Tele Applied ORDERED Care 05/12/18 21:14 Active Regular Diet Diet 05/12/18 21:15 Active CHEST-2 VIEWS [RAD] Stat Exams 05/12/18 16:41 Completed CBC WITH ELECTRONIC DIFF [HEME] Stat Lab 05/12/18 17:20 Completed CBC WITH NO DIFF [HEME] Routine Lab 05/13/18 05:00 Ordered CK PROFILE [SP CHEM] Q6H Lab 05/12/18 23:35 Completed CK PROFILE [SP CHEM] Q6H Lab 05/13/18 05:55 Ordered CK PROFILE [SP CHEM] Stat Lab 05/12/18 17:20 Completed COMPREHENSIVE METABOLIC PANEL [CHEM] Stat Lab 05/12/18 17:20 Completed PRO B-NATRIURETIC PEPTIDE Stat Lab 05/12/18 17:20 Completed PROTIME WITH INR [COAG] Stat Lab 05/12/18 17:20 Completed PTT [COAG] Stat Lab 05/12/18 17:20 Completed TROPONIN T Q6H Lab 05/12/18 23:35 Completed TROPONIN T Q6H Lab 05/13/18 05:00 Ordered TROPONIN T Stat Lab 05/12/18 17:[address] W/POSS RFLX CULT [URINALYSIS] Stat Lab 05/12/18 17:30 Completed URINE DRUG SCREEN PL Stat Lab 05/12/18 17:30 Completed Aspirin Med 05/12/18 16:40 Discontinued 325 mg PO NOW ONE Furosemide [Lasix] Med 05/12/18 17:17 Discontinued 80 mg IV NOW ONE Hydralazine [Apresoline] Med 05/12/18 21:14 Active 10 mg IV Q6H PRN PRN Morphine Med 05/12/18 17:16 Discontinued 4 mg IV NOW ONE Nitroglycerin Med 05/12/18 17:18 Discontinued 0.5 inch TOP NOW ONE Nitroglycerin Med 05/12/18 21:14 Active 1 inch TOP Q8H Potassium Chloride E.r. [Klor-Con] Med 05/12/18 18:20 Discontinued 40 meq PO NOW ONE CP/SOB/Palp >45 yrs of Age Stat Oth 05/12/18 16:40 Ordered Telemetry [OM.EQ] Routine Oth 05/12/18 21:14 Active EKG [EKG] Stat Ther 05/12/18 16:41 Ordered Transfer/Admit Order [TRANSFER] Routine Transfer 05/12/18 18:38 Completed Result Diagrams: 05/12/18 17:20 05/12/18 17:20 - REASSESSMENT Reassessment #1 Time Reassessed: 18:15 Status: improving (patient report less hcest pain, sob. HE was eating comfortabl y at the exam time. will admit for chf exacerbation and cocaine induce chest pain) - EKG 1 Time of EKG reading by physician:: 16:51 EKG Read and Signed by:: Chucky Tovar EKG Interpretation (*Must complete 3 of following elements*): Abnormal Rate: 116 Rhythm: Sinus tach w/ premature atrial complexes [place]: left QRS: other (possible L atrial enlargement) SC Interval: normal ST Wave: non-specific ST changes - CONSULTS/PCP/HOSPITALIST Notification #1 *Consult/PCP/Hospitalist*: Dr. Ng Time Discussed: 18:26 Consult Disposition: Admit (Hx, PE and patient care discussed with Dr. Ng, accepted.) Departure - Departure Date of Disposition Decision: 05/12/18 Time of Disposition Decision: 18:24 DIAGNOSIS: Cocaine abuse CHF exacerbation Qualifiers: Heart failure type: unspecified Qualified Code(s): I50.9 - Heart failure, unspecified Chest pain Qualifiers: Chest pain type: other chest pain Qualified Code(s): R07.89 - Other chest pain; R07.8 - Other chest pain Disposition: ADMITTED INPATIENT 09 Certified Medical Emergency: Emergent Condition: Serious - Critical Care Note This patient required my direct & personal management of CC.: No Attestation - Physician/ ELEONORA Attestation Patient care was provided by Advanced Practice Provider:: No The physician spent face to face time with patient:: Yes Advanced Practice Provider documentation review:: Supervising physician onsite and consulted in the evaluation and care of this patient. The physician did have a face to face encounter with the patient. This chart was documented by the indicated scribe, (Maranda Alfaro Scribe) and accurately reflects the services I performed and decisions made by me, Rosa Rios MD, as attested by the provider's signature.
[2018-05-13] MEDS: DUONEB (A & A) INH PRN ×2 (04:59→08:50)
[2018-05-13] MEDS: NORCO-10 PO PRN ×2 (05:19→21:02)
[2018-05-13 06:34] LABS: HEMATOCRIT 41.3 % (42.0-52.0); HEMOGLOBIN 12.9 g/dL (14.0-18.0); MCH 26.3 PG (27-31); MCHC 31.2 g/dL (33-37); MCV 84.3 FL (81-99); MPV 9.8 FL (7.4-10.4); RBC 4.9 XMIL (4.7-6.1); RDW 19.6 % (11.5-14.5); WBC 9.07 X1000 (4.8-10.8)
[2018-05-13 07:32] LABS: ALBUMIN 3.5 g/dL (3.5-5.0); CALCIUM 8.7 mg/dL (8.8-10.2); CREATININE 1.3 mg/dL (0.7-1.2); POTASSIUM 3.5 mmol/L (3.5-5.1); TOTAL BILIRUBIN 2.8 mg/dL (0.20-1.00)
[2018-05-13] MEDS ORDERED: NITROGLYCERIN SL PRN (09:42)
[2018-05-13] MEDS: PEPCID PO SCH ×2 (10:45→21:00)
[2018-05-13] MEDS: COREG PO SCH ×2 (10:45→21:03)
[2018-05-13] MEDS: PLAVIX PO SCH (10:45)
[2018-05-13] MEDS: ENTRESTO 24 MG-26 MG TABLET PO SCH ×3 (10:45→21:01)
[2018-05-13] MEDS: LASIX IV SCH ×2 (12:09→23:58)
[2018-05-13] MEDS: CRESTOR PO SCH (21:01)
[2018-05-13] MEDS: ASPIRIN EC PO SCH (21:02)
[2018-05-13] MEDS: KLOR-CON PO SCH (21:02)
--- NOTE | 2018-05-13 22:35 | HISTORY AND PHYSICAL ---
CHIEF COMPLAINT: Chest pain. HISTORY OF PRESENT ILLNESS: The patient is a 48-year-old individual who unfortunately continues to choose to make bad decisions and be incredibly noncompliant. His drug screen again this time was cocaine positive. He presented with chest pain, shortness of breath, increased swelling in his lower extremities. States he has gained 20 pounds of fluid. Notes that he has been taking his medications, but states he took extra Lasix yesterday and took 6 nitroglycerin as well as an aspirin. ALLERGIES: Penicillin, atropine causing anaphylaxis, Toradol, and latex causing a rash, Levaquin and Ativan. MEDICATIONS: Aspirin, hydrocodone, nitroglycerin, ProAir, Plavix 75, Pepcid, Entresto /, spironolactone 25 twice a day, Xanax 2 mg, Coreg 6.25 twice daily and Crestor. PAST MEDICAL HISTORY: Significant for extreme noncompliance, recurrent cocaine abuse, cardiac disease with history of [place], congestive heart failure with cardiomyopathy and a 15-20% ejection fraction, hypertension, COPD, chronic kidney disease. SURGICAL HISTORY: He has had cardiac stenting, pacemaker. REVIEW OF SYSTEMS: Increased swelling in his lower extremities. Denies any fevers or chills. Does have chest pain but notes that it has improved. Denies any nausea, vomiting, dysuria, urinary frequency. Denies hesitancy, polyuria or polydipsia. Denies any skin rashes, weight loss. States he has had weight gain that he thinks is due to the swelling in his lower extremities. ASSESSMENT: 1. Congestive heart failure class 4 with exacerbation. 2. Hypertension. 3. Chest pain, appears resolved. 4. Known coronary artery disease. 5. Known recurrent frequent and continue cocaine use and abuse. 6. Hypokalemia. 7. Hypertension. PLAN: We will continue patient in the hospital, place on IV Lasix twice daily, restart his home medications and we will follow. cc: Adalberto Ng MD
[2018-05-14] MEDS: DUONEB (A & A) INH PRN ×5 (00:54→23:24)
[2018-05-14] MEDS: NITROGLYCERIN TOP SCH (04:49)
[2018-05-14] MEDS: NORCO-10 PO PRN ×2 (08:07→22:44)
[2018-05-14] MEDS: ENTRESTO 24 MG-26 MG TABLET PO SCH ×2 (08:13→21:15)
[2018-05-14] MEDS: PEPCID PO SCH ×2 (08:17→21:22)
[2018-05-14] MEDS: PLAVIX PO SCH (08:18)
[2018-05-14] MEDS: COREG PO SCH ×2 (08:21→21:22)
[2018-05-14] MEDS: KLOR-CON PO SCH ×2 (08:25→21:16)
--- NOTE | 2018-05-14 10:09 | EKG Report ---
Test Performed on : 05/12/2018 4:51:41 PM Test Reason : cp Blood Pressure : / mmHG Vent. Rate : 116 BPM Atrial Rate : 116 BPM P-R Int : 170 ms QRS Dur : 098 ms QT Int : 320 ms P-R-T Axes : 058 -47 084 degrees QTc Int : 444 ms Sinus tachycardia. with premature atrial complexes. Possible Left atrial enlargement Left axis deviation Nonspecific T wave abnormality Abnormal ECG When compared with ECG of 12-MAY-2018 16:51, (Unconfirmed) premature atrial complexes. are now present Unconfirmed Result
[2018-05-14] MEDS: LASIX IV SCH (11:51)
[2018-05-14] MEDS: DOXYCYCLINE PO SCH ×2 (13:32→21:22)
--- NOTE | 2018-05-14 17:42 | PROGRESS NOTE ---
ADMISSION DATE: 05/12/2018 DISCHARGE DATE: SUBJECTIVE: Patient has no major complaints. He is asleep. He will not wake up for me, but opens his eyes, but he just goes back to sleep. OBJECTIVE: Vital Signs: Blood pressure is 111/94, heart rate of 100, respiratory rate 17, temperature 98.1. Cardiovascular: Regular rate and rhythm. Pulmonary: Bilateral breath sounds. Clear to auscultation. GI: Soft, nontender, nondistended. Bowel sounds are positive. LABORATORY DATA: White count 9, hemoglobin and hematocrit 12 and 41, platelets 285. Creatinine is up to 1.3. PROBLEM LIST: 1. Acute congestive heart failure exacerbation. Will continue diuresis. He has had a bump in his creatinine, so I may back him down a little bit to 40 q.12. 2. Acute kidney injury. There is an order in there for it. The patient is overall improved. DISPOSITION: I think if stable tomorrow, anticipate discharge. cc: Isreal Villeda MD
[2018-05-14] MEDS: ASPIRIN EC PO SCH (21:16)
[2018-05-14] MEDS: CRESTOR PO SCH (21:20)
[2018-05-14] MEDS: MELATONIN PO PRN (21:22)
[2018-05-15] MEDS: ZOFRAN IV PRN ×2 (00:02→20:50)
[2018-05-15] MEDS: LOVENOX SUBQ SCH (06:47)
[2018-05-15] MEDS: PRILOSEC PO SCH (06:48)
[2018-05-15] MEDS: DUONEB (A & A) INH PRN ×3 (07:53→22:46)
[2018-05-15] MEDS: NORCO-10 PO PRN ×2 (08:41→18:41)
[2018-05-15 09:54] LABS: BASO# 0.06 X1000 (0.0-0.2); BASO% 0.6 % (0.0-0.8); EOS# 0.19 X1000 (0.0-0.7); EOS% 1.9 % (0.0-10.0); HEMATOCRIT 42.9 % (42.0-52.0); IMM GRAN# 0.01 X1000 (0.0-0.04); IMM GRAN% 0.1 % (0.0-0.5); LYMPH% 20.6 % (20.5-51.1); MCH 26.7 PG (27-31); MCHC 30.3 g/dL (33-37); MCV 88.1 FL (81-99); MONO# 0.93 X1000 (0.11-0.59); MONO% 9.1 % (1.7-9.3); MPV 9.5 FL (7.4-10.4); NEUT% 67.7 % (42.2-75.2); PLT 296 X1000 (130-400); RBC 4.87 XMIL (4.7-6.1); RDW 20.1 % (11.5-14.5); WBC 10.19 X1000 (4.8-10.8)
[2018-05-15 10:01] LABS: AGAP 12; BUN 22 mg/dL (8-22); CALCIUM 8.3 mg/dL (8.8-10.2); CHLORIDE 99 mmol/L (98-107); COSMO 281; CREATININE 1.2 mg/dL (0.7-1.2); ESTIMATED GFR > 60; GLUCOSE 126 mg/dL (70-104); POTASSIUM 4.4 mmol/L (3.5-5.1); SODIUM 138 mmol/L (136-145); TCO2 28 mmol/L (25-35)
[2018-05-15 10:34] LABS: EOS 2 % (1-10); LYMPHS 23 % (21-51); MONO 7 % (1-9); SEGS 68 % (42-75)
[2018-05-15] MEDS: DOXYCYCLINE PO SCH (13:10)
[2018-05-15] MEDS: ENTRESTO 24 MG-26 MG TABLET PO SCH (13:10)
[2018-05-15] MEDS: PLAVIX PO SCH (13:10)
[2018-05-15] MEDS: COREG PO SCH (13:10)
[2018-05-15] MEDS: KLOR-CON PO SCH (13:11)
[2018-05-15] MEDS: PEPCID PO SCH (13:11)
--- NOTE | 2018-05-15 18:56 | Diag Imaging Result Doc PS360 ---
EXAM: KNEE 3 VIEWS RIGHT INDICATION: fall TECHNIQUE: 3 views COMPARISON: 10/06/2017 FINDINGS: There is stable tricompartmental degenerative arthropathy with small marginal osteophyte formations. There is stable loss of joint space height at the medial compartment. There is no discrete fracture, dislocation, or significant intrinsic osseous lesion, otherwise. There is soft tissue edema around the knee. IMPRESSION: Soft tissue edema and degenerative arthropathy. No evidence of acute osseous abnormality. Electronically signed by Alphonse Mittal 05/15/2018 6:54 PM
[2018-05-15] MEDS ORDERED: MORPHINE IV ONE (20:23)
[2018-05-16] MEDS: NORCO-10 PO PRN ×2 (00:10→06:51)
[2018-05-16] MEDS: ASPIRIN EC PO SCH (05:16)
[2018-05-16] MEDS: DOXYCYCLINE PO SCH ×2 (05:18→11:53)
[2018-05-16] MEDS: KLOR-CON PO SCH ×2 (05:18→11:53)
[2018-05-16] MEDS: PEPCID PO SCH ×2 (05:18→11:53)
[2018-05-16] MEDS: ENTRESTO 24 MG-26 MG TABLET PO SCH ×2 (05:18→11:52)
[2018-05-16] MEDS: CRESTOR PO SCH (05:19)
[2018-05-16] MEDS: COREG PO SCH ×3 (05:19→11:53)
[2018-05-16] MEDS: PRILOSEC PO SCH (06:52)
[2018-05-16] MEDS: LOVENOX SUBQ SCH (06:52)
[2018-05-16 06:55] LABS: BASO# 0.08 X1000 (0.0-0.2); BASO% 1.2 % (0.0-0.8); EOS# 0.12 X1000 (0.0-0.7); EOS% 1.8 % (0.0-10.0); HEMATOCRIT 44.8 % (42.0-52.0); HEMOGLOBIN 13.2 g/dL (14.0-18.0); IMM GRAN# 0.01 X1000 (0.0-0.04); IMM GRAN% 0.1 % (0.0-0.5); LYMPH# 1.93 X1000 (1.2-3.4); LYMPH% 28.4 % (20.5-51.1); MCH 26.2 PG (27-31); MCHC 29.5 g/dL (33-37); MCV 88.9 FL (81-99); MONO# 0.67 X1000 (0.11-0.59); MONO% 9.9 % (1.7-9.3); MPV 9.4 FL (7.4-10.4); NEUT# 3.98 X1000 (1.4-6.5); NEUT% 58.6 % (42.2-75.2); PLT 282 X1000 (130-400); RBC 5.04 XMIL (4.7-6.1); RDW 20.5 % (11.5-14.5); WBC 6.79 X1000 (4.8-10.8)
[2018-05-16 07:26] LABS: CALCIUM 8.8 mg/dL (8.8-10.2); CREATININE 1.4 mg/dL (0.7-1.2); POTASSIUM 5.2 mmol/L (3.5-5.1)
--- NOTE | 2018-05-16 07:45 | EKG Report ---
Test Performed on : 05/15/2018 6:40:56 PM Test Reason : syncope Blood Pressure : / mmHG Vent. Rate : 093 BPM Atrial Rate : 093 BPM P-R Int : 174 ms QRS Dur : 094 ms QT Int : 382 ms P-R-T Axes : 069 -52 068 degrees QTc Int : 474 ms Normal sinus rhythm. Possible Left atrial enlargement Left axis deviation Nonspecific T wave abnormality Prolonged QT Abnormal ECG When compared with ECG of 12-MAY-2018 16:51, (Unconfirmed) premature atrial complexes. are no longer present Confirmed by Chucky Tovar MD ([id number]) on 05/24/2018 6:48:17 AM
[2018-05-16] MEDS: DUONEB (A & A) INH PRN ×3 (07:51→19:51)
[2018-05-16] MEDS: PLAVIX PO SCH (11:53)
[2018-05-16] MEDS ORDERED: LASIX IV SCH (12:15)
[2018-05-16] MEDS ORDERED: HALDOL IV PRN (14:43)
[2018-05-16 15:26] LABS: UR AMPHETAMINES QUAL NONE DETECTED (NONE DETECT); UR BARBITUATES QUAL NONE DETECTED (NONE DETECT); UR BENZODIAZEPIN QUAL NONE DETECTED (NONE DETECT); UR CANNABINOIDS QUAL NONE DETECTED (NONE DETECT); UR COCAINE QUAL PRESUMPTIVE POSITIVE (NONE DETECT); UR METHADONE QUAL NONE DETECTED (NONE DETECT); UR METHAMPHETAMINE QUAL NONE DETECTED (NONE DETECT); UR OPIATES QUAL PRESUMPTIVE POSITIVE (NONE DETECT); UR OXYCODONE QUAL NONE DETECTED (NONE DETECT); UR PCP QUAL NONE DETECTED (NONE DETECT); UR PROPOXYPHENE QUAL NONE DETECTED (NONE DETECT); UR TCA QUAL NONE DETECTED (NONE DETECT)
[2018-05-16] MEDS ORDERED: NS 250 ML IV ONE (16:22)
--- NOTE | 2018-05-16 18:14 | PROGRESS NOTE ---
DATE: 05/15/2018 SUBJECTIVE: The patient had an episode of syncope. He called the desk and stated that he was going to fall. OBJECTIVE: Vital signs: Blood pressure is actually pretty stable at 104/78, heart rate of 124, respiratory rate 18, temperature 97.8 degrees. Cardiovascular: Regular rate and rhythm. Pulmonary: Bilateral breath sounds. Clear to auscultation. GI: Soft, nontender, nondistended. Bowel sounds are positive. Extremities: No clubbing or cyanosis. Lymphatic exam: No peripheral edema. Neurological: Nonfocal. LABORATORY DATA: White count is 6, hemoglobin hematocrit 13 and 42. Creatinine 1.2. PROBLEM LIST: 1. Acute congestive heart failure exacerbation. We will continue diuretics and monitor closely. 2. Hypertension. We will continue treatment and follow. 3. Cocaine abuse. Have counseled on substance abuse. 4. Syncope. May be related to over diuresis. May need to hold and consider holding his Lasix because of this episode and follow and evaluate for cardiac ischemia or persistent cocaine use. We will continue to monitor closely. cc: Isreal Villeda MD
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
[2018-05-16 19:02] VITALS: BP 100/56
[2018-05-16] MEDS ORDERED: COREG PO SCH (21:00)
[2018-05-17] MEDS ORDERED: ENTRESTO 24 MG-26 MG TABLET PO SCH (09:00)
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
== END 2018-05-16 20:40 | disposition left against medical advice (07) | DRG 291 ==
LOC: P.ICU 16:37 → P.ED 16:37 → SUATTDRO 21:05 → OBSVTOIN 21:05 → P.ICU 21:34 → P.MEDSURG 05-14 15:25
PROVIDERS: ATTEND Internal Medicine
CPT/HCPCS: 71020; 71046; 73562; 80048; 80053; 80104; 80301; 80305; 81001; 82550; 83735; 83880; 84484; 85025; 85027; 85610; 85730; 93005; 93010; 94640; 94761; 96374; 96375; 99285; A9270; G0431; G0434; G0477; J0360; J1650; J1940; J2270; J2405; J7040